=== PATIENT | female | born 1960 | race Caucasian/White ===

== ENCOUNTER 2019-12-09 12:04 | Outpatient (CLI) | payer MEDICARE, OTHER, SELFPAY ==
--- NOTE | 2019-12-09 12:05 | MM_ITS ---
WS: [id number] LEFT DIGITAL MAMMOGRAPHY WITH CAD CLINICAL INFORMATION: HX OF BREAST CA COMPARISON: TECHNIQUE: 5 views of the left breast were obtained. FINDINGS: Scattered fibroglandular densities of the left breast. No suspicious focal mass, asymmetry, calcifications, or architectural distortion. No evidence of tosin gnancy. MM/[place] [id number] IMPRESSION: BI-RADS: 1-Negative FOLLOW UP: 1 Year Follow-up Recommend return to annual diagnostic mammography.
== END 2019-12-09 12:05 | disposition home or self-care (01) ==
LOC: RADSHAW 12:04
PROVIDERS: Family Provider Family Medicine; PCP Family Medicine; Visit Provider Nurse Practitioner
DX: Z85.3 Personal history of malignant neoplasm of breast (principal); Z90.11 Acquired absence of right breast and nipple
CPT/HCPCS: 77065

== ENCOUNTER 2020-09-02 08:11 | Outpatient (CLI) | payer MEDICARE, OTHER, SELFPAY ==
--- NOTE | 2020-09-02 | CT_ITS ---
WS: [id number] CT HEAD WITH AND WITHOUT CONTRAST HISTORY: HX OF TIA AND CEREBRAL INFARCT TECHNIQUE: Noncontrast 2.5 mm axial images obtained from the vertex to the skull base. Additional christa ging performed at 2.5 mm axial images status post IV contrast. Bone and soft tissue windows are revie wed. All CT scans at [facility] use at least one of these dose optimization techniques: a utomated exposure control; mA and/or kV adjustment per patient size (includes targeted exams where do se is matched to clinical indication); or iterative reconstruction. CONTRAST: Omnipaque 300; 95 mL IV. DLP: 1984.08 mGycm COMPARISON: 08/29/2017 No acute intracranial hemorrhage, edema or midline shift. Large known RIGHT MCA territory infarct is again identified. There is significant volume loss with mi ld ex vacuole dilatation of the RIGHT lateral ventricle. There are small lacunar infarcts in the LEFT basal ganglia. No new infarct or interval change. No enhancing masses. No vascular malformations. Mildly beaded appearance of the middle cerebral arter ies raises the possibility of fibromuscular dysplasia. Hypoplastic LEFT A1 segment. Dural venous sinuses are normally enhancing. Visualized [place] of [place] is unremarkable. Paranasal sinuses as visualized: Clear. Mastoid air cells: Clear. Calvarium and scalp: Intact. CT/CT head wo/w con [id number] IMPRESSION: 1. No acute intracranial hemorrhage or edema. 2. Large stable RIGHT MCA territory infarct with encephalomalacia. 3. Small lacunar infarcts in the LEFT basal ganglia are stable. 4. Hypoplastic LEFT A1 segment. 5. Mildly beaded appearance of the middle cerebral arteries suggests the possi bility of fibromuscular dysplasia.
[2020-09-02] MEDS: iohexol 300 mg/mL 100 mL Btl IV (09:10)
== END 2020-09-02 08:12 | disposition home or self-care (01) ==
LOC: RADWPI 08:17
PROVIDERS: Family Provider Family Medicine; PCP Family Medicine; Visit Provider Nurse Practitioner
DX: R29.6 Repeated falls (principal); Z86.73 Personal history of transient ischemic attack (TIA), and cerebral infarction without residual deficits; G93.89 Other specified disorders of brain; I63.81 Other cerebral infarction due to occlusion or stenosis of small artery
CPT/HCPCS: 70470; Q9967

== ENCOUNTER 2020-11-10 11:06 | Outpatient (CLI) | payer MEDICARE, OTHER, SELFPAY ==
--- NOTE | 2020-11-10 11:11 | XR_ITS ---
WS: [id number] Abdomen, Flat and upright 11/10/2020 Clinical Data: LEFT UPPER QUADRANT PAIN Comparison: None. Findings: No free air is seen beneath the diaphragms. No abnormal intra-abdominal masses or calcifica tions are seen. No obstruction is seen. There are numerous clips throughout the left side of the abdo men and 2 on the right side of the abdomen. There is a large amount of fecal material throughout the colon. Degenerative change of the lumbar vertebral bodies L3-L5 with degenerative disc disease and a slight levoscoliosis is seen. XR/XR abdomen min 2V [id number] Impression: Large amount of fecal material throughout the colon.
== END 2020-11-10 11:07 | disposition home or self-care (01) ==
LOC: RADWPI 11:10
PROVIDERS: PCP Family Medicine; Visit Provider Nurse Practitioner Family
DX: R10.12 Left upper quadrant pain (principal)
CPT/HCPCS: 74019

== ENCOUNTER 2020-11-17 10:05 | Inpatient (IN) | payer MEDICARE, OTHER, SELFPAY ==
[2020-11-17] VITALS (12 sets, daily range): BP systolic 103–172; BP diastolic 59–107; PULSE 70–93; RESP 15–19; TEMP 36.6–36.9; O2SAT 92–97; BMI 38.1
--- NOTE | 2020-11-17 | CT_ITS ---
WS: [id number] CT HEAD NONCONTRAST HISTORY: WEAKNESS TECHNIQUE: Contiguous axial imaging performed through the brain in 2.5 mm imaging. Bone and soft tiss ue windows. Sagittal and coronal reformats reviewed. All CT scans at [facility] use at ast one of these dose optimization techniques: automated exposure control; mA and/or kV adjustment pe r patient size (includes targeted exams where dose is matched to clinical indication); or iterative r econstruction. DLP: 837.50 mGy-cm. COMPARISON: 09/02/2020 Large prior RIGHT MCA territory infarct. Large area of encephalomalacia and volume loss. No area of h emorrhage. No midline shift. Prior lacunar infarct in the subcortical white matter LEFT frontal lobe. No midline shift. Ventricles: Mild ex vacuole dilatation of the RIGHT lateral ventricle due to the large MCA territory infarct. Paranasal sinuses: As visualized are clear. Mastoid air cells: Well pneumatized. Calvarium and scalp: Skull is intact with no soft tissue edema or swelling. CT/CT head wo con* [id number] IMPRESSION: 1. No acute intracranial infarct or hemorrhage. 2. Large RIGHT MCA territory infarct. Notified Jamin Cnocepcion DO at 11/17/2020 10:21 AM.
--- NOTE | 2020-11-17 10:24 | ECG_ITS ---
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 Measurements Intervals Royal Rate: 93 P: 51 FL: 156 QRS: 13 QRSD: 108 T: 23 QT: 367 QTc: 458 Interpretive Statements SINUS RHYTHM Compared to ECG 08/29/2017 13:33:00 No significant changes Electronically Signed On 11-17-2020 21:26:02 [employer]ACH by Richard Segura M.D. [email or web address] hospitalGeneric [facility].[employer]/store/NU/[id number] f
--- NOTE | 2020-11-17 10:24 | CT_ITS ---
WS: [id number] CT ANGIOGRAM CEREBRAL AND CAROTID ARTERIES HISTORY: stroke-like symptoms TECHNIQUE: CT angiogram is performed of the carotid and cerebral arteries. During arterial injection imaging is obtained from the skull vertex to the aortic arch in 1.25 mm imaging. Coronal and sagittal reformats are submitted. Additional multi planar reformats of the carotid and cerebral arteries are submitted, MIP imaging also reviewed. NASCET criteria utilized. All CT scans at [facility] use at least one of these dose optimization techniques: automated exposure control; mA and/or kV ad justment per patient size (includes targeted exams where dose is matched to clinical indication); or iterative reconstruction. CONTRAST: Omnipaque 350; 95 mL IV. DLP: 2137.82 mGy.cm COMPARISON: Noncontrast head CT 11/17/2020. Carotid Angiogram: Right carotid: Common carotid artery: Arises normally from the innominate artery. No significant plaque or stenosis. Internal carotid artery: No plaque or stenosis. External carotid artery: Patent. Left carotid: Common carotid artery: Origin of the common carotid cannot be identified. There is significant artifa ct at the skull base. The common carotid artery may arise from the base of the innominate. Internal carotid artery: No plaque or stenosis. External carotid artery: Patent. Right vertebral artery: Unremarkable. Left vertebral artery: Proximal LEFT vertebral artery is obscured by artifact. Distally no abnormalit y. Subclavian arteries: LEFT subclavian is poorly visualized. Upper thorax: Normal. Thyroid gland: Normal. Osseous structures: Unremarkable. CEREBRAL ANGIOGRAM: Intracranial vertebral arteries: Normal with no significant atherosclerosis. Basilar artery: No significant stenosis or occlusion. No aneurysm. Intracranial Internal carotid arteries: Demonstrates no significant stenosis or plaque. Middle cerebral arteries: Normal. Anterior cerebral arteries and ACOM: Hypoplastic LEFT A1 segment but it is patent. Posterior cerebral arteries and PCOM's: Normal. Dural venous sinuses are normally enhancing. Mastoid air cells: Normal. Paranasal sinuses: Normal. Calvarium: Normal. CT/CT angio headneck* [id number] IMPRESSION: 1. No significant carotid artery stenosis. 2. Proximal LEFT vertebral and origin of the LEFT common carotid artery and LE FT subclavian arteries are obscured by motion and artifact. 3. No cerebral aneurysms or occlusions.
--- NOTE | 2020-11-17 10:27 | W.ED.NEUROSD ---
HPI - Neuro Symptoms/Deficit General: Chief Complaint: Neuro Symptoms/Deficit Stated Complaint: POSSIBLE STROKE Time Seen by Provider: 11/17/20 10:06 History of Present Illness: HPI Narrative: 60-year-old female with a history of stroke on warfarin presents with abrupt onset of dizziness and strokelike symptoms. The patient reports she is in her usual state of health when she woke this morning and then after stopping for breakfast she became dizzy and began to have some other concerning symptoms for stroke with right sided deficits and the patient was brought into the emergency department for evaluation and code stroke was called after checking her blood sugar and it was found to be normal. Dr. Bennett arrived emergently to assist and evaluate. Onset (ago): hour(s) Time: 10:28 (0815) History of same: Yes Severity: mild Quality: weak and numb Exacerbating factors: none Context: sudden onset On Anticoagulants: Yes Associated symptoms: Reports no associated symptoms Review of Systems General: Reports: 10 or more systems reviewed and unremarkable except in HPI and below PFSH ED PFSH: Social History (Updated 05/20/20 @ 17:24 by Madelaine Patel LPN) Smoking and tobacco status: never smoked Alcohol intake: never Physical Exam Const: COMMON NORMALS: no acute distress, patient oriented x3, no limitations and alert EXAM LIMITATIONS: no altered mental status, no language barrier and no physical limitations GENERAL APPEARANCE: cooperative and comfortable; not in distress HENMT: COMMON NORMALS: normocephalic HEAD & SCALP: normal to inspection and normocephalic Eye: COMMON NORMALS: Equal, round and reactive pupils present PUPIL: Yes Equal, round and reactive pupils present Resp: COMMON NORMALS: normal respiratory effort, No retractions and No use of accessory muscles Cardio: COMMON NORMALS: regular rate and regular rhythm RATE: regular rate RHYTHM: regular rhythm GI: COMMON NORMALS: Normal to inspection, nondistended, normoactive bowel sounds present Extremity: COMMON NORMALS: normal to inspection GENERAL: Yes normal exam except as noted Neuro: COMMON NORMALS: patient oriented x3 and moves all extremities; negative for gait normal SENSORIUM/ORIENTATION: Yes alert SPEECH: abnormal speech GAIT: Yes Unable to assess gait SENSORY EXAM: Yes Trunk sensory exam abnormal MONOFILAMENT EXAM PERFORMED: No Skin: COMMON NORMALS: no rashes or lesions noted GENERAL SKIN EXAM: no rashes or lesions noted Course ED course: 60-year-old female history of stroke on chronic regulation with strokelike symptoms. Her NIH is [address] shows remote right sided stroke but no acute findings. Dr. Bennett has assessed the patient and recommended CTA. Currently being performed. Other labs and workup are ordered. INR still pending. Stroke order set placed. INR subtherapeutic. Deficiits have resolved. NIH now zero. Discussed with neurology about admission on heparin drip and further work up. Talked to Hospitalist (Dr. Mcconnell) about admission. Vital Signs: Vital signs: Vital Signs Temperature 98.0 F 11/17/20 10:06 Pulse Rate 84 11/17/20 12:10 Respiratory Rate 16 11/17/20 12:10 Blood Pressure 172/107 11/17/20 12:10 Pulse Oximetry 96 11/17/20 12:10 MDM - Neuro Symptoms/Deficit Lab Data: Labs: Lab Results 11/17/20 11/17/20 11/17/20 Range/Units 10:20 10:20 10:20 WBC 4.3 (4.0-10.0) 10^3/ uL RBC 4.62 (4.1-5.3) 10^6/u L Hgb 13.1 (11.5-15.3) g/dL Hct 42.0 (37.0-47.0) % MCV 90.9 (81-99) fL MCH 28.4 (28.0-34.0) pg MCHC 31.2 (30.0-36.0) g/dL RDW 12.5 (12.1-15.1) % Plt Count 189 (130-400) 10^3/c mm MPV 11.9 H (7.4-10.4) fL Neut % (Auto) 67.8 % Lymph % (Auto) 22.4 % [place] % (Auto) 8.5 % Eos % (Auto) 0.9 % Baso % (Auto) 0.2 % Neut # (Auto) 2.88 (1.8-7.7) 10^3/u L Lymph # (Auto) 1.0 (0.8-4.8) 10^3/u L [place] # (Auto) 0.4 (0.2-0.9) 10^3/u L Eos # (Auto) 0.0 (0.0-0.8) 10^3/u L Baso # (Auto) 0.0 (0.0-0.1) 10^3/u L Nucleated RBC % (a uto) 0 % Nucleated RBCs # 0.0 /100WBC PT 15.60 H (12.1-14.9) SECO NDS INR 1.20 (0.8-1.2) APTT 43.9 H (23.9-36.7) SECO NDS Sodium 143 (136-145) mmol/L Potassium 3.8 (3.5-5.1) mmol/L Chloride 105 (98-107) mmol/L Carbon Dioxide 31 H (22-29) mmol/L Anion Gap 10.8 (5-19) BUN 12 (6-20) mg/dL Creatinine 0.6 (0.5-0.9) mg/dL GFR Calculation 102.7 (90-130) mL/min Glucose 123 H (65-115) mg/dL Calculated Osmolal ity 297 H (285-295) mOsm/k g Calcium 9.1 (8.5-10.5) mg/dL Total Bilirubin 0.4 (0.15-1.2) mg/dL AST 15 (0-32) U/L ALT 10 (0-33) U/L Alkaline Phosphata se 113 H (35-105) IU/L Total Protein 7.0 (6.6-8.7) g/dL Albumin 4.3 (3.5-5.2) g/dL Globulin 2.7 (1.3-4.6) g/dL Discharge Plan Discharge Patient Disposition: Admitted As Inpatient Clinical Impression: Transient cerebral ischemia Qualifiers: Transient cerebral ischemia type: other Qualified Code(s): G45.8 - Other transient cerebral ischemic attacks and related syndromes Condition: Stable Coding Level of Care Code ED Diesel Service Journeyman for syeda Fwd Exam Comprehensive
[2020-11-17] MEDS: sodium chloride 0.9% 1,000 ML 999 ML IV (10:29)
[2020-11-17 10:40] LABS: Basophils % 0.2 %; Eosinophils % 0.9 %; Hemoglobin 13.1 g/dL (11.5-15.3); Lymphocytes % 22.4 %; Mean Corpuscular HGB Conc 31.2 g/dL (30.0-36.0); Mean Corpuscular Hemoglobin 28.4 pg (28.0-34.0); Mean Corpuscular Volume 90.9 fL (81-99); Mean Platelet Volume 11.9 fL (7.4-10.4); Monocytes # 0.4 10^3/uL (0.2-0.9); Monocytes % 8.5 %; Neutrophils # 2.88 10^3/uL (1.8-7.7); Neutrophils % 67.8 %; Nucleated Red Blood Cells % 0 %; Platelet Count 189 10^3/cmm (130-400); Red Blood Count 4.62 10^6/uL (4.1-5.3); Red Cell Distribution Width 12.5 % (12.1-15.1); White Blood Count 4.3 10^3/uL (4.0-10.0)
[2020-11-17] MEDS: iohexol 350 mg/mL 100 mL Btl IV (10:41)
--- NOTE | 2020-11-17 10:48 | PC.NURSE ---
pt right side no longer showing weakness. pt does not appear to have a facial droop. pt does not have any slow or garbled speech at this time. ER physician notified.
[2020-11-17 10:52] LABS: Alanine Aminotransferase 10 U/L (0-33); Albumin Level 4.3 g/dL (3.5-5.2); Alkaline Phosphatase 113 IU/L (35-105); Anion Gap 10.8 (5-19); Aspartate Amino Transferase 15 U/L (0-32); Blood Urea Nitrogen 12 mg/dL (6-20); Calcium 9.1 mg/dL (8.5-10.5); Carbon Dioxide 31 mmol/L (22-29); Chloride 105 mmol/L (98-107); Globulin 2.7 g/dL (1.3-4.6); Glomerular Filtration Rate 102.7 mL/min (90-130); Glucose 123 mg/dL (65-115); Osmolality Calculated 297 mOsm/kg (285-295); Partial Thromboplastin Time 43.9 SECONDS (23.9-36.7); Potassium 3.8 mmol/L (3.5-5.1); Sodium 143 mmol/L (136-145); Total Bilirubin 0.4 mg/dL (0.15-1.2)
--- NOTE | 2020-11-17 11:12 | P.PNCC_ITS ---
Stroke Alert Activation ED Arrival Date: 11/17/20 ED Arrival Time: 10:06 ED Physican at Bedside: 10:15 Last Known Normal/at Baseline: 1-2 hours ago Other Last Known Well Infomation: I was called stat for stroke alert at 1007 and called the emergency department. I learned that the patient presented with severe left hemiparesis and that she had been taken straight to CT. I came directly to CAT scan and reviewed her CAT scan on the monitor. That study showed an old right middle cerebral artery anterior branch ischemic stroke, atrophic and old. There were no acute lesions in the left hemisphere. I proceeded to talk with the patient and I reviewed the story with her and with EMS. She was at [place] this morning at 08 100 and drove from [place] to her workplace which is a block away and could not remember making the drive. When she got to work she could not get out of the car. Jake Henriquez was called and she arrived at [facility] at 1006. Kevin activated the stroke team and so I was at the bedside before she finished her CAT scan. She had a normal blood pressure of 117/72 and an Accu-Chek of 122. I asked the nurses to prepare TPA. The patient could not stand up. She was profoundly weak on the right and moderately dysarthric but she was not aphasic. She was fully oriented. She told me that she has been on Coumadin since her stroke several years ago and that her INR was 1.31-week ago. She talked with her physician who adjusted her Coumadin upward in response to her subtherapeutic pro time. She had not recheck her pro time since then. I notified the lab, who was already on standby, that pro time was a priority. The nurses were prepared to give TPA. As soon as she received an IV and labs drawn we returned to the CAT scan suite for CTA. I reviewed that study and it is my impression that there is no sign of posterior circulation stenosis with full vertebral and basilar arteries throughout their course. The carotid arteries look unremarkable. Dr. East's report was subsequently reviewed. Her pro time returned at 1.2. At this time, now just as the labs returned, the patient's symptoms have resolved on IV fluids. She was able to ambulate normally, her speech is normal and she has no focal motor deficit. Her pro time is subtherapeutic and she is in atrial fibrillation. I would suggest admitting her, starting her on heparin and consider changing to Xarelto which can be obtained at a reasonable sanchez through the [facility] B program. There is no role for TPA at this point since her symptoms and signs have fully resolved. Stroke Alert Activated by: [facility] Stroke Alert Activation Time: 10:06 Stroke MD @ Bedside Time: 10:07 NIH Stroke Scale Time: 10:10 NIH stroke score NIHSS: Level Of Consciousness - 1a: 1 Level Of Consciousness Questions - 1b: Both Correct Level Of Consciousness Commands - 1c: Both Correct Best Gaze - 2: Normal Visual Bust[place]ante - 3: No Visual Loss Facial Palsy - 4: Minor Paralysis Motor Arm Right - 5: Drift Motor Arm Left - 5: No Drift Motor Leg Right - 6: Drift Motor Leg Left - 6: No Drift Limb Ataxia - 7: Present In Two Limbs Sensory - 8: Normal (Normal on the right. Residual reduced sensation left side from previous stroke) Best Language - 9: No Aphasia Dysarthia - 10: Mild/Moderate Dysarthia Extinction And Inattention - 11: 0 Score: Total Score: 7 Stroke Alert Data/Treatment Time to CT of Head: 10:06 CT Results Time: 10:10 CT Impression: Old right middle cerebral artery stroke Stroke Risk Factors: atrial fibrillation (Pro time subtherapeutic on warfarin) tPA Contraindication: tPA Contraindication: Treatment not indcated Patient & Family Educated on: Cause of Stroke and Treament Plan Standardized Stroke Orders Used: Yes Other Information: Recommend hospitalization because this was a severe and prolonged TIA and her pro time is subtherapeutic. I presume that atrial fibrillation was a cause of this event. Critical Care Time Critical Care Time: 30 - 74 mins A&P Assessment and plan (1) Left acute arterial ischemic stroke, MCA (middle cerebral artery): Prolonged right hemiparesis and dysarthria, presumably subcortical or brainstem threatened stroke. No cortical involvement. Her symptoms resolved with normal saline. Her CT angiogram does not show a large vessel thrombosis or embolus. Her symptoms have resolved and so even though her pro time is only 1.2 she is not currently a candidate for TPA. Recommend watching her very carefully with frequent neuro checks. If her symptoms return she would be a TPA candidate, since she is neurologically fully normal now. Status: Acute (2) Atrial fibrillation: Consider change to Xarelto Status: Acute Coding Level of Care Code Acute Gravel Machine Operator for g Fwd Diagnoses Left acute arterial ischemic stroke, MCA (middle cerebral artery) I63.512 Atrial fibrillation I48.91
--- NOTE | 2020-11-17 11:12 | PC.NURSE ---
spoke to neurologist and was given orders to ambulate pt. pt tolerated activity well.
[2020-11-17 12:14] LABS: Add Urine Microscopic? NO
[2020-11-17 12:23] LABS: Bilirubin Urine Neg (Negative); Blood Urine Neg (Negative); Glucose Urine UA Norm (Normal); Ketones Urine Negative (Negative); Leukocyte Esterase Urine Negative (Negative); Nitrate Urine Negative (Negative); Protein Urine Neg (Negative); Specific Gravity, Urine 1.005 (1.005-1.030); Urine Appearance Clear (CLEAR); Urine Color Yellow (Yellow); Urobilinogen Urine 1 mg/dL (Negative); pH Urine 7 (5-7)
--- NOTE | 2020-11-17 12:27 | XRR_ITS ---
PROCEDURE INFORMATION: Exam: XR Chest, 1 View Exam date and time: 11/17/2020 1:35 PM Age: 60 years old Clinical indication: Other: Stroke like symptoms; Prior surgery; Surgery type: RT breast; Patient HX: No chest complaints TECHNIQUE: Imaging protocol: XR of the chest Views: 1 view. COMPARISON: CR Chest 1 [place] [id number] 08/29/2017 1:53 PM FINDINGS: Lungs: Unremarkable. No consolidation. Pleural space: Unremarkable. No pleural effusion. No pneumothorax. Heart/Mediastinum: Unremarkable. No cardiomegaly. Bones/joints: Unremarkable. XR/XR chest 1V portable [id number] IMPRESSION: No acute findings.
[2020-11-17 12:29] LABS: Amphetamines Screen Urine Negative (Negative); Barbiturates Screen Urine Negative (Negative); Benzodiazepines Screen Urine Positive (Negative); Cocaine Screen Urine Negative (Negative); Opiate Screen Urine Positive (Negative); PCP Screen Urine Negative (Negative); THC Screen Urine Negative (Negative)
[2020-11-17] MEDS: heparin 5,000 unit/mL INJ 1 mL IV (12:53)
[2020-11-17] MEDS: heparin drip 25,000 UNIT/500 ML PREMIX 52.7 UNIT IV (12:54)
[2020-11-17 13:20] LABS: Glucose Point of Care 122 mg/dL (70-110)
--- NOTE | 2020-11-17 14:19 | PM.HP ---
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 She also reports being incontinent with urine during the episode. No loss of consciousness or seizures. She reports also some dizziness which has resolved. According to the ER reports her NIH score was 7. She was being considered for TPA administration. She was rushed to CT. However while she was on the CT her symptoms started resolving. Second evaluation after CT revealed NIH of 0. Currently the patient is doing well. She denies any headache, problems with vision, problems with speech. No new weakness or sensory loss. No chest pain, palpitations, shortness of breath, nausea or vomiting. Residual symptoms from her major stroke which happened several years ago is left upper and lower extremity mild weakness and significant numbness. She has a little bit limp on the left side. The patient is on warfarin. However her INR was 1.2. She states that 2 weeks ago it was 3.1 and the dose of warfarin was decreased. A week ago her INR was 1.3 and a new adjustment was done to her warfarin. She states that she is compliant with prescriptions. She has chronic pain syndrome and is on pain medications. She is prone to constipation. Denies any abdominal pain, rectal blood. Review of Systems General: Reports: 10 or more systems reviewed and unremarkable except in HPI and below Medications/Allergies Home Medications Medication Instructions Recorded Confirmed Last Taken Type duloxetine 20 mg capsule,delayed 20 mg PO DAILY@21 cap 05/20/20 11/17/20 11/16/20 History release ropinirole 0.25 mg tablet 0.25 mg PO DAILY@21 05/20/20 11/17/20 11/16/20 History simvastatin 10 mg tablet 10 mg PO DAILY@21 05/20/20 11/17/20 11/16/20 History warfarin 1 mg tablet See Rx Instructions .ROUTE 05/20/20 11/17/20 11/16/20 History .COMPLEX tab alprazolam 0.5 mg PO Q6H PRN 11/17/20 11/17/20 11/17/20 History pseudoephedrine HCl [Sudogest] 30 mg PO Q6H PRN 11/17/20 11/17/20 11/17/20 History Allergies Allergy/AdvReac Type Severity Reaction Status Date / Time No Known Allergies Allergy Verified 06/22/20 15:13 PFSH Acute PFSH: Social History (Updated 05/20/20 @ 17:24 by Madelaine Patel LPN) Smoking and tobacco status: never smoked Alcohol intake: never Vitals/I&O/Wt Last Vital Signs Temp 98.0 F 11/17/20 10:06 Pulse 84 11/17/20 12:10 Resp 16 11/17/20 12:10 BP 172/107 11/17/20 12:10 Pulse Ox 96 11/17/20 12:10 Weight last 48 hrs Weight 97.613 kg Physical Exam Narrative: EXAM NARRATIVE: The patient is awake alert and oriented x4. No acute distress. Mood and affect are appropriate. Responses are adequate. Eyes Niels, extraocular muscles are intact Normal speech Cranial nerves II through XII are grossly intact Neck supple. No JVD Moist mucous membranes Lungs are clear bilaterally. Heart S1, S2, regular rhythm and rate no murmurs Abdomen is soft, nontender, bowel sounds are present Extremities no edema cyanosis or calf tenderness bilaterally Neuro examination 3-4 out of 5 weakness in the left upper and lower extremities. Mild numbness is present which is chronic according to the patient. Cerebellar tests seem to be intact. Data : 11/17/20 10:20 11/17/20 10:20 Other Labs: Laboratory Results WBC 4.3 10^3/uL (4.0-10.0) 11/17/20 10:20 RBC 4.62 10^6/uL (4.1-5.3) 11/17/20 10:20 Hgb 13.1 g/dL (11.5-15.3) 11/17/20 10:20 Hct 42.0 % (37.0-47.0) 11/17/20 10:20 MCV 90.9 fL (81-99) 11/17/20 10:20 MCH 28.4 pg (28.0-34.0) 11/17/20 10:20 MCHC 31.2 g/dL (30.0-36.0) 11/17/20 10:20 RDW 12.5 % (12.1-15.1) 11/17/20 10:20 Plt Count 189 10^3/cmm (130-400) 11/17/20 10:20 MPV 11.9 fL (7.4-10.4) H 11/17/20 10:20 Neut % (Auto) 67.8 % 11/17/20 10:20 Lymph % (Auto) 22.4 % 11/17/20 10:20 [place] % (Auto) 8.5 % 11/17/20 10:20 Eos % (Auto) 0.9 % 11/17/20 10:20 Baso % (Auto) 0.2 % 11/17/20 10:20 Neut # (Auto) 2.88 10^3/uL (1.8-7.7) 11/17/20 10:20 Lymph # (Auto) 1.0 10^3/uL (0.8-4.8) 11/17/20 10:20 [place] # (Auto) 0.4 10^3/uL (0.2-0.9) 11/17/20 10:20 Eos # (Auto) 0.0 10^3/uL (0.0-0.8) 11/17/20 10:20 Baso # (Auto) 0.0 10^3/uL (0.0-0.1) 11/17/20 10:20 Nucleated RBC % (auto) 0 % 11/17/20 10:20 Nucleated RBCs # 0.0 /100WBC 11/17/20 10:20 PT 15.60 SECONDS (12.1-14.9) H 11/17/20 10:20 INR 1.20 (0.8-1.2) 11/17/20 10:20 APTT 43.9 SECONDS (23.9-36.7) H 11/17/20 10:20 Sodium 143 mmol/L (136-145) 11/17/20 10:20 Potassium 3.8 mmol/L (3.5-5.1) 11/17/20 10:20 Chloride 105 mmol/L (98-107) 11/17/20 10:20 Carbon Dioxide 31 mmol/L (22-29) H 11/17/20 10:20 Anion Gap 10.8 (5-19) 11/17/20 10:20 BUN 12 mg/dL (6-20) 11/17/20 10:20 Creatinine 0.6 mg/dL (0.5-0.9) 11/17/20 10:20 GFR Calculation 102.7 mL/min (90-130) 11/17/20 10:20 Glucose 123 mg/dL (65-115) H 11/17/20 10:20 POC Glucose 122 mg/dL (70-110) H 11/17/20 10:19 Calculated Osmolality 297 mOsm/kg (285-295) H 11/17/20 10:20 Calcium 9.1 mg/dL (8.5-10.5) 11/17/20 10:20 Total Bilirubin 0.4 mg/dL (0.15-1.2) 11/17/20 10:20 AST 15 U/L (0-32) 11/17/20 10:20 ALT 10 U/L (0-33) 11/17/20 10:20 Alkaline Phosphatase 113 IU/L (35-105) H 11/17/20 10:20 Total Protein 7.0 g/dL (6.6-8.7) 11/17/20 10:20 Albumin 4.3 g/dL (3.5-5.2) 11/17/20 10:20 Globulin 2.7 g/dL (1.3-4.6) 11/17/20 10:20 Urine Color Yellow (Yellow) 11/17/20 11:56 Urine Appearance Clear (CLEAR) 11/17/20 11:56 Urine pH 7 (5-7) 11/17/20 11:56 Ur Specific [place] 1.005 (1.005-1.030) 11/17/20 11:56 Urine Protein Neg (Negative) 11/17/20 11:56 Urine Glucose (UA) Norm (Normal) 11/17/20 11:56 Urine Ketones Negative (Negative) 11/17/20 11:56 Urine Blood Neg (Negative) 11/17/20 11:56 Urine Nitrate Negative (Negative) 11/17/20 11:56 Urine Bilirubin Neg (Negative) 11/17/20 11:56 Urine Urobilinogen 1 mg/dL (Negative) H 11/17/20 11:56 Ur Leukocyte Esterase Negative (Negative) 11/17/20 11:56 Urine Opiates Screen Positive ng/mL (Negative) H 11/17/20 11:56 Ur Barbiturates Screen Negative ng/mL (Negative) 11/17/20 11:56 Ur Phencyclidine Scrn Negative ng/mL (Negative) 11/17/20 11:56 Ur Amphetamines Screen Negative ng/mL (Negative) 11/17/20 11:56 U Benzodiazepines Scrn Positive ng/mL (Negative) H 11/17/20 11:56 Urine Cocaine Screen Negative ng/mL (Negative) 11/17/20 11:56 U Marijuana (THC) Screen Negative ng/mL (Negative) 11/17/20 11:[address] 11/17/20 00:00 IMPRESSION: 1. No acute intracranial infarct or hemorrhage. 2. Large RIGHT MCA territory infarct. Notified Jamin Concepcion DO at 11/17/2020 10:21 AM. Head/Neck CTA 11/17/20 10:24 IMPRESSION: 1. No significant carotid artery stenosis. 2. Proximal LEFT vertebral and origin of the LEFT common carotid artery and LEFT subclavian arteries are obscured by motion and artifact. 3. No cerebral aneurysms or occlusions. Chest X-Ray 11/17/20 12:27 IMPRESSION: No acute findings. A&P Additional A&P Information 60-year-old female with past medical history of antiphospholipid syndrome, thrombophilia, warfarin therapy, breast cancer stage III currently in remission, dyslipidemia, chronic pain syndrome who presented with acute onset facial droop, slurred speech, right-sided weakness. Currently her symptoms have resolved. CVA versus TIA. Discussed with Dr. Bennett who evaluated the patient and her findings. Dr. Bennett feels that the patient had a lacunar infarct. Currently she is on heparin drip. She recommends to continue heparin drip and resume warfarin to achieve therapeutic range. She recommends starting on baby aspirin a day and continue with statin medication. She feels that MRI and MRA can be postponed to outpatient stage since positive or negative findings would not alter the treatment at this time. Questionable findings on CTA neck. Dr. Bennett reviewed the pictures. She does not feel that there are problems with the circulation in the left vertebral subclavian or carotid arteries. However she recommends MRA in outpatient settings. The plan of care was discussed with the patient and her . They verbalized understanding and agreement. Attestations Medical Necessity Statement*: I expect that the patient will spend 1 or 2 midnights in the hospital. Coding Level of Care Code Acute Beauty Culturist for Tracey Farrra
[2020-11-17] MEDS: labetalol 5 mg/mL SDV 20mL 10 MG IVP (15:23)
[2020-11-17 20:53] LABS: Partial Thromboplastin Time > 250.0 SECONDS (23.9-36.7)
[2020-11-17] MEDS: duloxetine 20 mg Capsule PO (21:12)
[2020-11-17] MEDS: ropinirole 0.25 mg Tablet PO (21:12)
[2020-11-17] MEDS: atorvastatin 40 mg Tablet 20 MG PO (21:13)
[2020-11-17] MEDS: acetaminophen 325 mg Tablet 650 MG PO (22:09)
[2020-11-18] VITALS (9 sets, daily range): BP systolic 115–130; BP diastolic 68–86; PULSE 71–98; RESP 16–18; TEMP 36.6–37.3; O2SAT 92–93
[2020-11-18 01:18] LABS: Partial Thromboplastin Time 48.2 SECONDS (23.9-36.7)
[2020-11-18 04:27] LABS: INR 1.21 (0.8-1.2)
[2020-11-18 04:39] LABS: Chol HDL Ratio 3.43 mg/dL (0.0-4.40); Cholesterol 137 mg/dL (0-200); HDL Cholesterol 40 mg/dL (60-100); LDL Cholesterol Calculated 68 mg/dL (50-129); Triglycerides 143 mg/dL (0-150)
--- NOTE | 2020-11-18 06:00 | USCV_ITS ---
Nai Mancilla Age: 60 Gender: F : 1960 Exam Date: 11/18/2020 06:11 Ordering Phys: Joseph Landon MD Technologist: Rolanda Wilson [place] [facility] [place]: CVA BP: 126 / 73 HR: 89 Rhythm: Sinus Technical Quality: Adequate MEASUREMENTS (Male / Female) Normal Values 2D ECHO LV Diastolic Diameter PLAX 3.6 cm 4.2 - 5.9 / 3.9 - 5.3 cm LV Systolic Diameter PLAX 2.6 cm IVS Diastolic Thickness 1.3 cm 0.6 - 1.0 / 0.6 - 0.9 cm IVS Systolic Thickness 1.7 cm LVPW Diastolic Thickness 1.2 cm 0.6 - 1.0 / 0.6 - 0.9 cm LVPW Systolic Thickness 1.3 cm LVOT Diameter 2.0 cm LV Ejection Fraction 2D Teich 54.2 % LV Ejection Fraction MOD 2C 59.0 % LV Ejection Fraction 2C AL 58.8 % LA Diameter 2.9 cm LA Width 3.0 cm LA Height 4.3 cm RA Width 2.6 cm RA Height 3.4 cm Aorta at Sinotubular Diameter 2.9 cm M-MODE LV Diastolic Diameter MM 3.9 cm 4.2 - 5.9 / 3.9 - 5.3 cm LV Systolic Diameter MM 2.7 cm LV Ejection Fraction MM Teich 58.9 % IVS Diastolic Thickness MM 0.9 cm 0.6 - 1.0 / 0.6 - 0.9 cm IVS Systolic Thickness MM 1.2 cm LVPW Diastolic Thickness MM 1.2 cm 0.6 - 1.0 / 0.6 - 0.9 cm LVPW Systolic Thickness MM 1.4 cm RV Diastolic Diameter MM 0.9 cm Aortic Annulus Diameter 3.1 cm LA Ao Ratio MM 1.0 MV E Point Septal Separation 0.6 cm DOPPLER AV Peak Velocity 118.7 cm/s LVOT Peak Velocity 66.9 cm/s AV Area Cont Eq vti 1.9 cm squared AV Area Cont Eq pk 1.8 cm squared MV Area PHT 4.2 cm squared Mitral E to A Ratio 0.7 MV E' Velocity 38.0 cm/s Mitral E to MV E' Ratio 6.4 Mitral E to LV E' Lateral Ratio 6.1 Mitral E to LV E' Septal Ratio 6.7 TR Peak Velocity 138.4 cm/s TR Peak Gradient 7.7 mmHg TR Mean Velocity 83.3 cm/s TR Mean Gradient 3.3 mmHg TR Velocity Time Integral 28.1 cm TV Peak E Velocity 75.0 cm/s Right Atrial Pressure 3.0 mmHg Pulmonary Artery Systolic Pressu 10.7 mmHg PV Peak Velocity 50.0 cm/s RV Acceleration Time 0.1 s RV Ejection Time 0.4 s RV AcT/ET 0.4 FINDINGS Left Ventricle Normal left ventricular size and systolic function with no regional wall motion abnormalities. LVEF is 60 to 65%. Normal left ventricular wall thickness. Grade 1 diastolic dysfunction is present. Right Ventricle Not well-visualized. Grossly normal in size. Right Atrium The right atrium is normal in size. Left Atrium The left atrium is normal in size. Mitral Valve Grossly normal. No evidence of mitral stenosis or regurgitation is noted. Aortic Valve Grossly normal. No evidence of aortic stenosis is noted. Tricuspid Valve Structurally normal tricuspid valve without significant stenosis or regurgitation. RVSP is 10 to 15 mmHg. Pulmonic Valve Not well-visualized. Pericardium Normal pericardium without effusion. Aorta Normal ascending aorta dimension. CONCLUSIONS This is a limited quality echocardiogram. Contrast agent is used to visualize cardiac structures. LV systolic function is normal with EF of 60 to 65%. Grade 1 diastolic dysfunction is present. No gross abnormality of valvular structures is noted. No comparison studies are available. Vijay Dupont MD (Electronically Signed) Final Date: 18 November 2020 13:18 S
[2020-11-18 08:34] LABS: Partial Thromboplastin Time 140.1 SECONDS (23.9-36.7)
[2020-11-18] MEDS: acetaminophen 325 mg Tablet 650 MG PO (09:08)
[2020-11-18] MEDS: aspirin 81 mg EC Tablet PO (09:08)
[2020-11-18] MEDS: perflutren protein-a microsphr 0.22 mg/mL SDV 3 mL IV (09:10)
--- NOTE | 2020-11-18 11:08 | PC.CHAP ---
Pastoral Care Encounter/Spiritual Assessment Type of Contact [] Declined theatre director visit [] Patient/Family/Request visit [] Outpatient visit [] Follow-up visit [] Physician referral [] Code/Alert [x] Routine visit [] Staff referral [] Actively dying [] Patient sleeping [] Family support [] [] Out of room [] Palliative care [] [x] Receiving care in room [] Pre-surgical visit [] Trauma [] Long length of stay [] ICU visit [] Other: Relational/Emotional Strength [x] Patient feels connected with others/family/visitors/staff [] Distress [] Loneliness/isolation [] Abandonment Spirituality of Patient [x] Person of Viry [] Attends Protestant of their Viry [x] Believes in Prayer [] Reads Bible or Jehovah'S Witness materials [] There are Spiritual issues to be addressed Shuffle Board Operator Interventions [x] Prayer [x] Active listening [x] Non-anxious presence [x] Spiritual/emotional support [] Crisis/trauma care [x] Spiritual counseling [] Bereavement support [] Provided bereavement packet [] Provided Bible/devotional materials [] Provided toy/stuffed animal, coloring book to patient or family member [] Provided Communion [] Anointing/Outlook [] Salvation [x] Completed spiritual assessment [] Other: Impact on Illness or Injury [] Angry [] Fearful [x] Anxious [] Often cries [] Exhaustion [] Unable to work [] Unable to attend confucianism [] Unable to walk/stand [] Unable to read [] Unable to drive [] Unable to eat/drink [] Unable to sleep [] Unable to be with family [] Patient intubated [] Other: Summary Back verdabree, may need to change meds, doesn't know when she go home Time spent with patient 10 mins
--- NOTE | 2020-11-18 11:23 | PC.NUTR ---
NUTR CONSULT: Heart Healthy education requested. Pt records indicate a possible stroke. Will cont pt at [phone] for follow up education to be mailed.
--- NOTE | 2020-11-18 12:20 | PM.PN ---
Subjective Subjective: Interval history: No fresh episode of Dizziness.She deny any new focal weakness,other then her old residual lt sided weakness. She deny any chest pain, sob, cough, fever, headache, blurred vision, abnormal sensations, gait disturbances. Has been ambulating. She has remained afebrile, other vitals and labs have been reviewed. Medications: Reviewed: Yes Vitals/I&O/Wt Last Vital Signs Temp 99.2 F 11/18/20 10:00 Pulse 94 11/18/20 10:00 Resp 16 11/18/20 10:00 BP 130/68 11/18/20 10:00 Pulse Ox 93 11/18/20 10:00 11/17/20 11/18/20 11/18/20 22:59 06:59 14:59 Intake Total 240 / 240 Balance 240 / 240 Weight last 48 hrs Weight 97.613 kg Physical Exam Narrative: EXAM NARRATIVE: The patient is awake alert and oriented x4. No acute distress. Mood and affect are appropriate. Responses are adequate. Eyes Niels, extraocular muscles are intact Normal speech Cranial nerves II through XII are grossly intact Neck supple. No JVD Moist mucous membranes Lungs are clear bilaterally. Heart S1, S2, regular rhythm and rate no murmurs Abdomen is soft, nontender, bowel sounds are present Extremities no edema cyanosis or calf tenderness bilaterally Neuro examination 3-4 out of 5 weakness in the left upper and lower extremities. Mild numbness is present which is chronic according to the patient. Cerebellar tests seem to be intact. Data : 11/17/20 10:20 11/17/20 10:20 A&P Additional A&P Information 60-year-old female with past medical history of antiphospholipid syndrome, thrombophilia, warfarin therapy, breast cancer stage III currently in remission, dyslipidemia, chronic pain syndrome who presented with acute onset facial droop, slurred speech, right-sided weakness. Currently her symptoms have resolved. CVA versus TIA. Discussed with Dr. Bennett who evaluated the patient and her findings. Dr. Bennett feels that the patient had a lacunar infarct. Currently she is on heparin drip. She recommends to continue heparin drip and resume warfarin to achieve therapeutic range. She recommends starting on baby aspirin a day and continue with statin medication. She feels that MRI and MRA can be postponed to outpatient stage since positive or negative findings would not alter the treatment at this time. Questionable findings on CTA neck. Dr. Bennett reviewed the pictures. She does not feel that there are problems with the circulation in the left vertebral subclavian or carotid arteries. However she recommends MRA in outpatient settings. The plan of care was discussed with the patient and her . They verbalized understanding and agreement. Attestations Medical Necessity Statement*: Patient needs to be in hospital for the management of subtherapeutic INR. Coding Level of Care Code Acute Voucher Examiner for Tracey Farrar
[2020-11-18] MEDS: ALPRAZolam 0.5 mg Tablet PO ×2 (13:21→21:44)
[2020-11-18] MEDS: warfarin 10 mg Tablet PO (13:53)
[2020-11-18] MEDS: heparin drip 25,000 UNIT/500 ML PREMIX 52.7 UNIT IV (13:54)
[2020-11-18 15:11] LABS: Partial Thromboplastin Time > 250.0 SECONDS (23.9-36.7)
[2020-11-18] MEDS: enoxaparin 100 mg/mL Syringe SUBCUT (19:35)
[2020-11-18] MEDS: duloxetine 20 mg Capsule PO (21:14)
[2020-11-18] MEDS: ropinirole 0.25 mg Tablet PO (21:14)
[2020-11-18] MEDS: atorvastatin 40 mg Tablet 20 MG PO (21:14)
[2020-11-18 22:26] LABS: Partial Thromboplastin Time 40.2 SECONDS (23.9-36.7)
[2020-11-19 00:20] VITALS: BP 118/84; PULSE 79; RESP 14; TEMP 36.7; O2SAT 93
[2020-11-19 03:41] VITALS: BP 140/86; PULSE 95; RESP 16; TEMP 36.7; O2SAT 93
[2020-11-19 04:57] LABS: Platelet Count 203 10^3/cmm (130-400)
[2020-11-19 05:18] LABS: INR 1.13 (0.8-1.2)
[2020-11-19] MEDS: enoxaparin 100 mg/mL Syringe SUBCUT (06:33)
[2020-11-19 08:00] VITALS: BP 128/80; PULSE 91; RESP 18; TEMP 36.9; O2SAT 92
[2020-11-19] MEDS: aspirin 81 mg EC Tablet PO (08:33)
--- NOTE | 2020-11-19 09:26 | PC.CHAP ---
Pastoral Care Encounter/Spiritual Assessment Type of Contact [] Declined manager image visit [] Patient/Family/Request visit [] Outpatient visit [] Follow-up visit [] Physician referral [] Code/Alert [x] Routine visit [] Staff referral [] Actively dying [] Patient sleeping [] Family support [] [] Out of room [] Palliative care [] [] Receiving care in room [] Pre-surgical visit [] Trauma [] Long length of stay [] ICU visit [] Other: Relational/Emotional Strength [x] Patient feels connected with others/family/visitors/staff [] Distress [] Loneliness/isolation [] Abandonment Spirituality of Patient [] Person of Viry [] Attends Christianity of their Viry [x] xBelieves in Prayer [] Reads Bible or Episcopalian materials [] There are Spiritual issues to be addressed Student Success Coach Interventions [x] Prayer [x] Active listening [] Non-anxious presence [] Spiritual/emotional support [] Crisis/trauma care [] Spiritual counseling [] Bereavement support [] Provided bereavement packet [] Provided Bible/devotional materials [] Provided toy/stuffed animal, coloring book to patient or family member [] Provided Communion [] Anointing/Steele [] Salvation [] Completed spiritual assessment [] Other: Impact on Illness or Injury [] Angry [] Fearful [] Anxious [] Often cries [] Exhaustion [] Unable to work [] Unable to attend latter day [] Unable to walk/stand [] Unable to read [] Unable to drive [] Unable to eat/drink [] Unable to sleep [] Unable to be with family [] Patient intubated [] Other: Summary patient doing good Time spent with patient 10 min
--- NOTE | 2020-11-19 09:28 | PC.CHAP ---
Pastoral Care Encounter/Spiritual Assessment Type of Contact [] Declined central supply technician supervisor visit [] Patient/Family/Request visit [] Outpatient visit [] Follow-up visit [] Physician referral [] Code/Alert [x] Routine visit [] Staff referral [] Actively dying [] Patient sleeping [] Family support [] [] Out of room [] Palliative care [] [] Receiving care in room [] Pre-surgical visit [] Trauma [] Long length of stay [] ICU visit [] Other: Relational/Emotional Strength [] Patient feels connected with others/family/visitors/staff [] Distress [] Loneliness/isolation [] Abandonment Spirituality of Patient [] Person of Viry [] Attends Temple of their Viry [] Believes in Prayer [] Reads Bible or Oriental Orthodox materials [] There are Spiritual issues to be addressed Tool Grinder Operator Surface Interventions [x] Prayer [x] Active listening [] Non-anxious presence [] Spiritual/emotional support [] Crisis/trauma care [] Spiritual counseling [] Bereavement support [] Provided bereavement packet [] Provided Bible/devotional materials [] Provided toy/stuffed animal, coloring book to patient or family member [] Provided Communion [] Anointing/Beulah [] Salvation [x] Completed spiritual assessment [] Other: Impact on Illness or Injury [] Angry [] Fearful [] Anxious [] Often cries [] Exhaustion [] Unable to work [] Unable to attend pentecostalism [] Unable to walk/stand [] Unable to read [] Unable to drive [] Unable to eat/drink [] Unable to sleep [] Unable to be with family [] Patient intubated [] Other: Summary patient feeling much better ready to go home Time spent with patient 10 min
[2020-11-19 12:00] VITALS: BP 122/81; PULSE 94; RESP 18; TEMP 36.9; O2SAT 93
[2020-11-19] MEDS: acetaminophen 325 mg Tablet 650 MG PO ×2 (12:03)
[2020-11-19 16:00] VITALS: BP 129/60; PULSE 85; RESP 18; TEMP 37.1; O2SAT 95
--- NOTE | 2020-11-19 16:55 | P.DS_ITS ---
Discharge Providers Date of Admission: 11/17/20 14:09 Date of Discharge: November 19, 2020 Attending Provider at Admission: Joseph Landon Attending Provider at Discharge: Inder Horton Primary Care Provider: Donal Doss Jr, MD Diagnoses at Discharge Discharge Diagnosis (1) Left acute arterial ischemic stroke, MCA (middle cerebral artery): Status: Resolved (2) Abnormal INR: Status: Acute (3) Atrial fibrillation: Status: Chronic (4) Antiphospholipid syndrome: Status: Chronic (5) Thrombophilia: Status: Chronic Reason for Visit Reason for Visit: POSSIBLE STROKE Hospital Course Hospital Course 60 year old female with past medical history of antiphospholipid syndrome, on chronic warfarin therapy, 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 She was being considered for TPA administration.She was rushed to CT.However while she was in the CT her symptoms started resolving. Second evaluation after CT revealed NIH of 0.Dr eedn was consulted she was of the opinion that the patient has Left acute arterial ischemic stroke, MCA (middle cerebral artery): given her Prolonged right hemiparesis and dysarthria, presumably subcortical or brainstem threatened stroke. No cortical involvement. Her symptoms resolved with normal saline. Her CT angiogram does not show a large vessel thrombosis or embolus. Her symptoms have resolved and so even though her pro time is only 1.2 she is not currently a candidate for TPA.she recommended watching her very carefully with frequent neuro checks. If her symptoms return she would be a TPA candidate, since she is neurologically fully normal now.She was also of the opinion that warfarin should be changed to Xarelto.She was started on aspirin 81 mg oral daily along with lipitor 20 mg oral daily. During her hospital sta se had no such similar episodes,apart for her residual lt sided weakness from her old CVA she had no other focal neurological deficits. For her subtherapeutic INR she was started on Heparin drip along with warfarin.She received Increased dose of warfarin 10 mg oral on 11/18.She was later switched to lovenox 100 mg sc q12 h daily and was asked to continue with her warfarin dose and follow with her warfarin clinic for goal INR (2-3).INR fluctuation can be seen in patients with APS. Per patient warfarin has worked fine for her for 9 years.She can be switched to xaralto by her PCP in agreement with patient wishes.MRI and MRA can be done as outpatient as since positive or negative findings would not alter the treatment at this time. She was discharged in stable condition she will follow her PCP as outpatient. Pertinent Imaging studies : Head CT without contrast 11/17/20: 1. No acute intracranial infarct or hemorrhage. 2. Large RIGHT MCA territory infarct. Head/Neck CTA 11/17/20 10:24 1. No significant carotid artery stenosis. 2. Proximal LEFT vertebral and origin of the LEFT common carotid artery and LEFT subclavian arteries are obscured by motion and artifact. 3. No cerebral aneurysms or occlusions. 2D ECHO :This is a limited quality echocardiogram. Contrast agent is used to visualize cardiac structures. LV systolic function is normal with EF of 60 to 65%. Grade 1 diastolic dysfunction is present. No gross abnormality of valvular structures is noted. No comparison studies are available. EKG :Sinus RHYTHM, rate: 93, VÍCTOR: 156, Qrs : 108 QtC: 458 Physical Exam Const: COMMON NORMALS: patient oriented x3 and alert ORIENTATION/CONSCIOUSNESS: Yes oriented to person, Yes oriented to place and Yes oriented to time HENMT: COMMON NORMALS: normocephalic and atraumatic HEAD & SCALP: normocephalic and atraumatic Resp: COMMON NORMALS: normal respiratory effort and clear to auscultation bilaterally EFFORT & INSPECTION: Yes symmetric chest movement AUSCULTATION: clear to auscultation bilaterally Cardio: COMMON NORMALS: regular rate, regular rhythm, S1 normal heart sound present, S2 normal heart sound present, No gallops present (Cardio), No murmurs present (Cardio), No rub (Cardio) and Peripheral pulses 2+ throughout RATE: regular rate RHYTHM: regular rhythm HEART SOUNDS: S1 normal heart sound present and S2 normal heart sound present PERIPHERAL PULSES: Peripheral pulses 2+ throughout GI: COMMON NORMALS: Normal to inspection, nondistended, normoactive bowel sounds present, Soft to palpation, non-tender, No hepatosplenomegaly present and no masses AUSCULTATION: Yes normoactive bowel sounds PALPATION: Yes Soft to palpation and Yes No hepatosplenomegaly present RECTAL EXAM: deferred Extremity: COMMON NORMALS: no clubbing, cyanosis or edema and no pedal edema Neuro: COMMON NORMALS: patient oriented x3 and CN's II-XII intact bilaterally SENSORIUM/ORIENTATION: Yes alert, Yes oriented to person, Yes oriented to place and Yes oriented to time COORDINATION/BALANCE: udrxbb-am-blyh test normal, fpze-sd-hvvw test normal, tandem gait normal and Romberg test negative SPEECH: speech normal GAIT: Yes Normal gait present COORDINATION: finge r-to-nose test normal, ymhq-pk-kyal test normal and tandem gait normal OTHER: 3-4 out of 5 weakness in the left upper and lower extremities. Mild numbness is present which is chronic according to the patient. Cerebellar tests seem to be intact. Discharge Data Data Completed and Pending: Completed Studies During Hospitalization Category Date Time Status CT angio headneck * [id number] Stat Cat Scan 11/17/20 10:[address] head wo con* [id number] Urgent Cat Scan 11/17/20 Completed XR chest 1V domitila ble [id number] Stat Exams 11/17/20 12:27 Completed CV echo wo/w cont rast [id number] Routine Ultrasound 11/18/20 06:00 Completed Pending at discharge Category Date Time Status Platelet Count Q2 D Lab 11/21/20 04:00 Ordered Prothrombin Time INR AM LABS Lab 11/20/20 04:00 Ordered Prothrombin Time INR AM LABS Lab 11/21/20 04:00 Ordered US/CV paperwork R outine Ultrasound 11/18/20 09:11 Taken Labs from last 24 hours 11/19/20 11/19/20 11/18/20 04:20 04:20 16:35 Plt Count 203 PT 14.90 INR 1.13 APTT 40.2 H D Vitals: Last Vital Signs Temp 98.7 F 11/19/20 16:00 Pulse 85 11/19/20 16:00 Resp 18 11/19/20 16:00 BP 129/60 11/19/20 16:00 Pulse Ox 95 11/19/20 16:00 Discharge Plan Discharge Patient Disposition: Home Condition: Stable Prescriptions: New Lovenox 100 mg/mL syringe 100 mg SUBCUT Q12H Qty: 1 RF: 0 aspirin 81 mg tablet,delayed release (DR/EC) 81 mg PO DAILY Qty: 30 RF: 0 Continued duloxetine [Cymbalta] 20 mg capsule,delayed release(DR/EC) 20 mg PO DAILY@21 RF: 0 warfarin [Coumadin] 1 mg tablet See Rx Instructions .ROUTE .COMPLEX RF: 0 simvastatin [Zocor] 10 mg tablet 10 mg PO DAILY@21 RF: 0 ropinirole [Requip] 0.25 mg tablet 0.25 mg PO DAILY@21 RF: 0 alprazolam 0.5 mg tablet 0.5 mg PO Q6H PRN (Reason: Anxiety) RF: 0 Sudogest 30 mg tablet 30 mg PO Q6H PRN (Reason: Nasal Congestion) RF: 0 Discharge Orders: Discharge Order (Routine); Ordered 11/19/20 Ordered By: Inder Horton Referrals: Donal Doss Jr, MD [Primary Care Provider] - 1 week (Please call Dr. Doss's office on Sunday to schedule an appointment to be seen in one week.) Discharge Diet: Usual diet Discharge Activity: Resume usual activity Patient Instructions: Enoxaparin (Injection), Transient Ischemic Attack (DC), Atrial Fibrillation (DC) Activity Restrictions/Additional Instructions: Patient has been discharged with Lovenox 100 mg sc q12 h daily and she will continue with the warfarin routine dose and will follow with her INR Clinic for further dose adjustment. Discharge Attestations Time Spent in Discharge Care*: greater than 30 min Specific Discharge Activities: educating patient, educating and/or supporting family/caregiver, discussing with complex case manager/social workers/dc planners, documenting/other paperwork and evaluating patient/reviewing data Status at Discharge: Cognitive status at discharge: cognitively intact , Behavioral status at discharge: cooperative , Functional status at discharge: independent ambulation Overall status at discharge: patient is back to baseline Quality Metrics Clinical Quality Measures During this hospital stay, did patient experience: None Coding Level of Care Code Acute 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
[2020-11-19 18:07] VITALS: BP 129/60; PULSE 85; RESP 18; TEMP 37.1; O2SAT 95
== END 2020-11-19 17:45 | disposition home or self-care (01) | DRG 65 ==
LOC: ER 12:10 → MEDSURG 17:22
PROVIDERS: Internal Medicine; Specialist; Admitting Provider Internal Medicine; Emergency Provider Family Medicine; PCP Family Medicine; Visit Provider Internal Medicine
DX: I63.81 Other cerebral infarction due to occlusion or stenosis of small artery (principal); G81.91 Hemiplegia, unspecified affecting right dominant side; I69.954 Hemiplegia and hemiparesis following unspecified cerebrovascular disease affecting left non-dominant side; R47.1 Dysarthria and anarthria; R29.810 Facial weakness; R29.707 NIHSS score 7; I48.91 Unspecified atrial fibrillation; K59.00 Constipation, unspecified; Z85.3 Personal history of malignant neoplasm of breast; E78.5 Hyperlipidemia, unspecified; G89.4 Chronic pain syndrome; R79.1 Abnormal coagulation profile; Z79.01 Long term (current) use of anticoagulants
CPT/HCPCS: 12345; 36415; 36416; 70450; 70496; 70498; 71045; 80053; 80061; 80306; 81003; 82962; 85025; 85049; 85610; 85730; 92523; 92610; 93005; 96372; 97161; 97165; 99283; 99291; C8929; J1644; J1650; J3490; J7030; Q9956; Q9967

== ENCOUNTER 2022-10-12 11:11 | Outpatient (CLI) | payer MEDICARE, SELFPAY ==
--- NOTE | 2022-10-12 11:20 | MM_ITS ---
WS: [id number] VIEWS: MLO, CC, and ML views left breast only right breast surgically absent.. 3D digital tomosynthe sis is also included in this exam. Comparison made with prior exam of 11/24/2015, 12/14/2015, 12/09/2019 12/04/2016,. Findings: There was no sign of mass, architectural distortion or suspicious calcification in either breast. Sc attered fibroglandular densities MM/[place] [id number] Impression: BI-RADS: 2-Benign FOLLOW-UP: 1 Year Follow-up This mammogram was also analyzed by the Computer Aided Detection System R2 Imag e [employer]ber Gr[employer].
== END 2022-10-12 11:12 | disposition home or self-care (01) ==
LOC: RAD 11:16
PROVIDERS: PCP Family Medicine; Visit Provider Family Medicine
DX: Z85.3 Personal history of malignant neoplasm of breast (principal)
CPT/HCPCS: 77061; G0279

== ENCOUNTER 2023-01-04 12:39 | Inpatient (IN) | payer MEDICARE, SELFPAY ==
[2023-01-04] VITALS (7 sets, daily range): BP systolic 138–180; BP diastolic 78–114; PULSE 99–105; RESP 16–18; TEMP 36.7–36.8; O2SAT 91–96; BMI 36.9
--- NOTE | 2023-01-04 13:02 | CT_ITS ---
WS: [id number] CT HEAD TECHNIQUE: Noncontrast CT of the head obtained from the skullbase to the vertex. CLINICAL INFORMATION: L sided deficit, onset 01/03 COMPARISON: None. DLP: 1032.[address] scans at [facility] use at least one of these dose optimization techniques: automated e xposure control; mA and/or kV adjustment per patient size (includes targeted exams where dose is matc hed to clinical indication); or iterative reconstruction. FINDINGS: No evidence of intracranial hemorrhage or mass effect. Ventricular system and basal cisterns are cloud nt. Mild small vessel changes with mild parenchymal volume loss. Chronic infarct RIGHT MCA territory with encephalomalacia was present in 2019. Chiari I Malformation appears unchanged. Ex vacuo dilatati on RIGHT lateral ventricle. Small chronic lacunar infarct LEFT lateral basal ganglia appears unchange d No extra-axial fluid collections. Paranasal sinuses and mastoid air cells are well aerated. .Normal visualized soft tissues. Normal pos terior nasopharynx. Normal parapharyngeal fat. CT/CT head wo con* [id number] IMPRESSION: 1. No evidence of intracranial hemorrhage or mass effect. 2. Chronic large RIGHT MCA territory infarct with encephalomalacia appears unc hanged since 2019. 3. Mild small vessel changes with mild parenchymal 4. Loss. 5. Chiari I malformation appears unchanged since 2019. No hydrocephalus. 6. No other suspicious findings.
--- NOTE | 2023-01-04 13:03 | CT_ITS ---
WS: [id number] CTA HEAD AND NECK TECHNIQUE: Contrast enhanced CTA of the head and neck with coronal and sagittal reformatted images an d maximum intensity projection (MIP) images. NASCET criteria utilized. CLINICAL INFORMATION: stroke symptoms, L sided COMPARISON: 2019 DLP: 529.[address] scans at [facility] use at least one of these dose optimization techniques: automated e xposure control; mA and/or kV adjustment per patient size (includes targeted exams where dose is matc hed to clinical indication); or iterative reconstruction. FINDINGS: RIGHT: Ovoid filling defect in the RIGHT mid cervical ICA at the level of the C2 vertebral body. This is new from 2020. This likely represents soft plaque and results in stenosis measuring approximately 60%. LEFT ICA remains patent to the skull base. Prior large RIGHT MCA territory infarct with encepha lomalacia. Proximal RIGHT MCA vessels are patent LEFT: No significant LEFT ICA stenosis. Normal vascularity to the HAILE and MCA territories bilaterally . Absent LEFT A1 segment. Azygos HAILE. Normal vascularity to the LEFT MCA territory. LEFT M1 segment i s patent. Both vertebral arteries are patent. Basilar artery is patent. Persistent LEFT ASSET COORDINATOR. Normal vascu larity to the ASSET COORDINATOR territory bilaterally. Atelectasis in the lung apices. Subclavian arteries appear patent. Normal caliber partially visualized thoracic aorta. Normal posteri or nasopharynx. Normal parapharyngeal fat. Mild spondylitic changes cervical spine. CT/CT angio headneck* [id number] IMPRESSION: 1. Filling defect in the RIGHT mid cervical ICA at the C2 level likely soft ec centric plaque is new from previous. This results in approximately 60% ICA sten osis. There is some slight irregularity and ulceration in this area previously 2020. ICA remains patent to the skull base. 2. No significant ICA stenosis at the bifurcations bilaterally. 3. Both vertebral arteries are patent. Proximal basilar artery is patent. Pers istent LEFT ASSET COORDINATOR. 4. Absent LEFT A1 segment with azygos HAILE territory supplied. 5. Normal vascularity to the proximal MCA territories bilaterally. 6. Chronic large RIGHT MCA territory infarct with encephalomalacia was present in 2019. 7. No other suspicious findings. Notified Raj Matias MD at 01/04/2023 3:11 PM.
--- NOTE | 2023-01-04 13:41 | ED_ITS ---
HPI - Neuro Symptoms/Deficit General: Chief Complaint: Neuro Symptoms/Deficit Stated Complaint: Possible stroke Time Seen by Provider: 01/04/23 13:08 Source: patient Mode of arrival: ambulatory History of Present Illness: 62-year-old female presents emergency room with left arm weakness. She is barely able to move it at all. She has a history of breast cancer. There were concerned about a possible stroke. She had hemorrhoid surgery yesterday in [place] and has been taken off of her warfarin for several days. Last night she went to bed around 1030 at that time she felt like she was having strokelike symptoms with weakness in her left arm. Her daughter went to check on her this morning at around 1130 and she could not move her left arm she can move her left leg she has no facial weakness is focal deficit to that arm. Previous stroke nearly a decade ago. Does have some left arm and leg residual symptoms predominantly the arm she said her sensation never came back and she is always had some difficulty with movement but this is markedly worse than it was previously. Onset (ago): hour(s) Time: 12:49 Last Observed Normal: 22:30 Location: left arm History of same: Yes Severity: severe Quality: weak and numb Relieving factors: none Exacerbating factors: none Context: other (Woke up with symptoms) Associated symptoms: Deny chest pain, cough, diaphoresis, fevers/chills, headache(s), anorexia, malaise, nausea, seizures, short of breath, syncope, tingling, vertigo, vomiting or weakness Treatments Prior to Arrival: none Review of Systems Const: Denies: fever(s), chills, fatigue, malaise or diaphoresis ENMT: Denies: throat pain, ear or mastoid pain, nasal discharge or nasal congestion Card: Denies: chest pain or syncope Resp: Denies: dyspnea, productive cough or non-productive cough GI: Denies: abdominal pain, nausea or vomiting : Denies: flank pain, difficulty voiding, dysuria, urinary frequency or urinary urgency Skin/Breast: Denies: rash or pruritus Neuro: Denies: headache(s) or vertigo PFS ED PFSH: Medical History Antiphospholipid syndrome Atrial fibrillation Left acute arterial ischemic stroke, MCA (middle cerebral artery) Transient cerebral ischemia Social History Smoking and tobacco status: never smoked Alcohol intake: never NIH stroke score NIHSS: Level Of Consciousness - 1a: 0 Level Of Consciousness Questions - 1b: Both Correct Level Of Consciousness Commands - 1c: Both Correct Best Gaze - 2: Normal Visual [place] - 3: No Visual Loss Facial Palsy - 4: Normal Motor Arm Right - 5: No Drift Motor Arm Left - 5: No Effort Against [place] Motor Leg Right - 6: No Drift Motor Leg Left - 6: No Drift Limb Ataxia - 7: Present In One Limb Sensory - 8: Mild To Moderate Loss Best Language - 9: No Aphasia Dysarthia - 10: Normal Extinction And Inattention - 11: 0 Score: Total Score: 5 Physical Exam Const: GENERAL APPEARANCE: cooperative and comfortable ORIENTATION/CONSCIOUSNESS: Yes awake, Yes oriented to person, Yes oriented to place and Yes oriented to time HENMT: COMMON NORMALS: normocephalic, atraumatic and hearing grossly normal bilaterally HEAD & SCALP: normocephalic and atraumatic Resp: COMMON NORMALS: normal respiratory effort, No retractions, No use of accessory muscles and clear to auscultation bilaterally AUSCULTATION: clear to auscultation bilaterally Cardio: COMMON NORMALS: regular rate, regular rhythm and No murmurs present (Cardio) RATE: regular rate RHYTHM: regular rhythm GI: COMMON NORMALS: Soft to palpation and No hepatosplenomegaly present AUSCULTATION: Yes normoactive bowel sounds PALPATION: Yes Soft to palpation, No Tenderness to palpation present (GI), No Guarding due to palpation present (GI) and Yes No hepatosplenomegaly present Extremity: COMMON NORMALS: normal to inspection, capillary refill normal, no clubbing, cyanosis or edema, no calf tenderness and no pedal edema Neuro: SENSORIUM/ORIENTATION: Yes oriented to person, Yes oriented to place and Yes oriented to time Skin: COMMON NORMALS: no rashes or lesions noted GENERAL SKIN EXAM: no rashes or lesions noted Course Vital Signs: Vital signs: Vital Signs Temperature 99.3 F 01/11/23 14:22 Pulse Rate 96 01/11/23 14:22 Respiratory Rate 17 01/11/23 16:00 Blood Pressure 117/71 01/11/23 14:22 Pulse Oximetry 98 01/11/23 14:22 Oxygen Delivery Me thod 01/11/23 08:00 Fraction of Inspir ed Oxygen 21 01/10/23 01:00 MDM - Neuro Symptoms/Deficit Medical Decision Making Head CT does not show any bleed. Her last known well is outside the window for any tPA. CTA did not show any acute large defects that would be amenable to embolectomy on her NIH score is 5 putting her below the threshold. By the time the CTA was completed she had improved function in her left arm. Or as initially she could barely move against gravity she is now able to lift and manipulate the fingers and picker tender helper items and manipulate them. Discussed this with her we will go ahead and admit the patient discussed with hospitalist orders written. Medical Records I reviewed the patient's medical records. Lab Data I reviewed the patient's lab results. 01/11/23 10:01 01/08/23 06:[address] 01/04/23 13:02 IMPRESSION: 1. No evidence of intracranial hemorrhage or mass effect. 2. Chronic large RIGHT MCA territory infarct with encephalomalacia appears unchanged since 2019. 3. Mild small vessel changes with mild parenchymal 4. Loss. 5. Chiari I malformation appears unchanged since 2019. No hydrocephalus. 6. No other suspicious findings. Head/Neck CTA 01/04/23 13:03 IMPRESSION: 1. Filling defect in the RIGHT mid cervical ICA at the C2 level likely soft eccentric plaque is new from previous. This results in approximately 60% ICA stenosis. There is some slight irregularity and ulceration in this area previously 2020. ICA remains patent to the skull base. 2. No significant ICA stenosis at the bifurcations bilaterally. 3. Both vertebral arteries are patent. Proximal basilar artery is patent. Persistent LEFT FRETTED INSTRUMENT INSPECTOR. 4. Absent LEFT A1 segment with azygos HAILE territory supplied. 5. Normal vascularity to the proximal MCA territories bilaterally. 6. Chronic large RIGHT MCA territory infarct with encephalomalacia was present in 2019. 7. No other suspicious findings. Notified Raj Matias MD at 01/04/2023 3:11 PM. KUB X-Ray 01/05/23 11:06 IMPRESSION: No acute abnormality. Head MRI 01/08/23 09:30 IMPRESSION: 1. Multiple punctate foci of restricted diffusion involving the RIGHT frontal and parietal deep white matter and RIGHT parasagittal occipital lobe consistent with acute ischemia. Findings suspicious for embolic or watershed infarcts. 2. Mild edema associated with the areas of acute ischemia. No significant mass effect or midline shift. 3. RIGHT MCA territory chronic infarct with encephalomalacia and gliosis. 4. No hemosiderin on the susceptibly weighted images. 5. No other suspicious findings. Message LEFT for Dr. Melida RENE at 01/08/2023 12:49 PM. Laboratory Results WBC 8.7 10^3/uL (4.0-10.0) 01/04/23 13:45 RBC 4.12 10^6/uL (4.1-5.3) 01/04/23 13:45 Hgb 12.1 g/dL (11.5-15.3) 01/04/23 13:45 Hct 37.6 % (37.0-47.0) 01/04/23 13:45 MCV 91.3 fl (81-99) 01/04/23 13:45 MCH 29.4 pg (28.0-34.0) 01/04/23 13:45 MCHC 32.2 g/dL (30.0-36.0) 01/04/23 13:45 RDW 12.1 % (12.1-15.1) 01/04/23 13:45 Plt Count 190 10^3/cmm (130-400) 01/04/23 13:45 MPV 11.1 fL (7.4-10.4) H 01/04/23 13:45 Neut % (Auto) 79.8 % 01/04/23 13:45 Lymph % (Auto) 10.5 % 01/04/23 13:45 [place] % (Auto) 9.4 % 01/04/23 13:45 Eos % (Auto) 0.0 % 01/04/23 13:45 Baso % (Auto) 0.1 % 01/04/23 13:45 Neut # (Auto) 6.90 10^3/uL (1.8-7.7) 01/04/23 13:45 Lymph # (Auto) 0.9 10^3/uL (0.8-4.8) 01/04/23 13:45 [place] # (Auto) 0.8 10^3/uL (0.2-0.9) 01/04/23 13:45 Eos # (Auto) 0.0 10^3/uL (0.0-0.8) 01/04/23 13:45 Baso # (Auto) 0.0 10^3/uL (0.0-0.1) 01/04/23 13:45 Nucleated RBC % (auto) 0 % 01/04/23 13:45 Nucleated RBCs # 0.0 /100WBC 01/04/23 13:45 PT 15.10 SECONDS (12.1-14.9) H 01/04/23 13:45 INR 1.15 (0.8-1.2) 01/04/23 13:45 APTT 37.0 SECONDS (23.9-36.7) H 01/04/23 13:45 Sodium 141 mmol/L (136-145) 01/04/23 13:45 Potassium 3.7 mmol/L (3.5-5.1) 01/04/23 13:45 Chloride 105 mmol/L (98-107) 01/04/23 13:45 Carbon Dioxide 27 mmol/L (22-29) 01/04/23 13:45 Anion Gap 12.7 (5-19) 01/04/23 13:45 BUN 10 mg/dL (8-23) 01/04/23 13:45 Creatinine 0.7 mg/dL (0.5-0.9) 01/04/23 13:45 GFR Calculation 85.4 mL/min (90-130) L 01/04/23 13:45 Glucose 112 mg/dL (65-115) 01/04/23 13:45 Calculated Osmolality 292 mOsm/kg (285-295) 01/04/23 13:45 Calcium 8.8 mg/dL (8.5-10.5) 01/04/23 13:45 Total Bilirubin 0.3 mg/dL (0.15-1.2) 01/04/23 13:45 AST 23 U/L (0-32) 01/04/23 13:45 ALT 28 U/L (0-33) 01/04/23 13:45 Alkaline Phosphatase 116 U/L (35-105) H 01/04/23 13:45 Total Protein 6.7 g/dL (6.6-8.7) 01/04/23 13:45 Albumin 4.3 g/dL (3.5-5.2) 01/04/23 13:45 Globulin 2.4 g/dL (1.3-4.6) 01/04/23 13:45 TSH 0.26 uIU/mL (0.27-4.20) L 01/04/23 13:45 Discharge Plan Discharge Patient Disposition: Admitted As Inpatient Admit Provider: Adama Montez Clinical Impression: CVA (cerebral vascular accident), Supratherapeutic INR, Left arm weakness Condition: Stable Discharge Diet: Cardiac Discharge Activity: Limit activity as instructed and As per PT/OT instructions Coding Level of Care Code ED Field Case Manager for Tracey Farrar
[2023-01-04 13:55] LABS: Basophils % 0.1 %; Hematocrit 37.6 % (37.0-47.0); Hemoglobin 12.1 g/dL (11.5-15.3); Lymphocytes # 0.9 10^3/uL (0.8-4.8); Lymphocytes % 10.5 %; Mean Corpuscular HGB Conc 32.2 g/dL (30.0-36.0); Mean Corpuscular Hemoglobin 29.4 pg (28.0-34.0); Mean Corpuscular Volume 91.3 fl (81-99); Mean Platelet Volume 11.1 fL (7.4-10.4); Monocytes # 0.8 10^3/uL (0.2-0.9); Monocytes % 9.4 %; Neutrophils % 79.8 %; Nucleated Red Blood Cells % 0 %; Platelet Count 190 10^3/cmm (130-400); Red Blood Count 4.12 10^6/uL (4.1-5.3); Red Cell Distribution Width 12.1 % (12.1-15.1); White Blood Count 8.7 10^3/uL (4.0-10.0)
[2023-01-04 14:11] LABS: INR 1.15 (0.8-1.2)
[2023-01-04 14:27] LABS: Alanine Aminotransferase 28 U/L (0-33); Albumin Level 4.3 g/dL (3.5-5.2); Alkaline Phosphatase 116 U/L (35-105); Anion Gap 12.7 (5-19); Aspartate Amino Transferase 23 U/L (0-32); Blood Urea Nitrogen 10 mg/dL (8-23); Calcium 8.8 mg/dL (8.5-10.5); Carbon Dioxide 27 mmol/L (22-29); Chloride 105 mmol/L (98-107); Globulin 2.4 g/dL (1.3-4.6); Glomerular Filtration Rate 85.4 mL/min (90-130); Glucose 112 mg/dL (65-115); Osmolality Calculated 292 mOsm/kg (285-295); Potassium 3.7 mmol/L (3.5-5.1); Sodium 141 mmol/L (136-145); Thyroid Stimulating Hormone 0.26 uIU/mL (0.27-4.20); Total Bilirubin 0.3 mg/dL (0.15-1.2); Total Protein 6.7 g/dL (6.6-8.7)
[2023-01-04 19:23] LABS: Add Urine Microscopic? YES; Bilirubin Urine Neg (Negative); Blood Urine 3+ (Negative); Glucose Urine UA Norm (Normal); Ketones Urine 1+ (Negative); Leukocyte Esterase Urine Negative (Negative); Nitrate Urine Negative (Negative); Protein Urine 1+ (Negative); Specific Gravity, Urine 1.005 (1.005-1.030); Urine Appearance Clear (CLEAR); Urine Color Yellow (Yellow); Urobilinogen Urine 1 mg/dL (Negative); pH Urine 5 (5-7)
--- NOTE | 2023-01-04 19:23 | P.HP_ITS ---
Providers/Chief Complaint Primary Care Provider: Missy Santana MD Chief Complaint: Possible stroke History of Present Illness Pleasant 62-year-old lady with remote history of right MCA CVA, APS, A-fib chronically on anticoagulation with warfarin target INR 2-3 underwent hemorrhoidectomy earlier this week, discontinued her warfarin, was bridged with Lovenox before the surgery. She states she resumed warfarin and aspirin after s urgery as per instructions. She has chronic residual left-sided facial droop, as well as chronic residual sensory deficits on the left. She presented to ER for evaluation due to waking up with left-sided weakness both upper and lower, worse in upper extremity. She did not notice any worsening in sensation. She had difficulty ambulating with weakness in the left lower extremity. Last known normal was last night. In ER she was assessed for acute CVA. No bleeding noted on CT head with visualized old large right MCA CVA with encephalomalacia. She was outside the window for tPA. CT angiogram head and neck was obtained without any large thrombosis, with noted 60% left-sided ICA stenosis. During her stay in ER she has been showing improvement in her symptoms. She is able to start closing her left hand and is able to lift the left arm, with persistent weakness and drift but much better than this morning. Review of Systems Const: Denies: fever(s), chills, body aches or malaise Eyes: Denies: change in vision, eye discomfort or eye redness ENMT: Denies: throat pain, oral sores or ear or mastoid pain Card: Denies: chest pain, edema, pre-syncope or dyspnea on exertion Resp: Denies: dyspnea, productive cough, change in phlegm color or hemoptysis GI: Denies: abdominal pain, nausea, vomiting, diarrhea, constipation, hematochezia or melena : Denies: flank pain, urinary frequency or hematuria Musc: Denies: back pain, joint swelling or joint redness Skin/Breast: Denies: rash or new lesions Neuro: Reports: numbness in extremities and weakness in extremities; Denies: headache(s), dizziness, confusion or seizure-like activity Endo: Denies: polyuria or polydipsia Joel/Lymph: Denies: easy bleeding or tender lymph nodes All/Imm: Denies: urticaria or tongue swelling Medications/Allergies Home Medications Medication Instructions Recorded Confirmed Last Taken Type duloxetine 20 mg capsule,delayed 20 mg PO DAILY@21 05/20/20 01/04/23 01/03/23 History release (Cymbalta) simvastatin 10 mg tablet (Zocor) 10 mg PO QPM 05/20/20 01/04/23 01/03/23 History alprazolam 0.5 mg tablet 0.5 mg PO Q6H PRN Anxiety 11/17/20 01/04/23 01/03/23 History pseudoephedrine HCl 30 mg tablet 30 mg PO Q6H PRN Nasal Congestion 11/17/20 01/04/23 11/17/20 History (Sudogest) aspirin 81 mg tablet,delayed 81 mg PO DAILY #30 tabs 11/19/20 01/04/23 01/03/23 Rx release hydrocodone 7.5 mg-acetaminophen 1 tab PO BID PRN Pain 01/04/23 01/04/23 Unknown History 325 mg tablet oxycodone 5 mg tablet 5 mg PO Q6H PRN Pain 01/04/23 01/04/23 Unknown History ropinirole 0.25 mg tablet 0.5 mg PO BEDTIME 01/04/23 01/04/23 01/03/23 History warfarin 5 mg tablet See Rx Instructions .Route .COMPLEX 01/04/23 01/04/23 01/03/23 History Allergies Allergy/AdvReac Type Severity Reaction Status Date / Time aspirin [From Percodan] Allergy ADR-Halluci Verified 01/04/23 14:47 nating oxycodone [From Percodan] Allergy ADR-Halluci Verified 01/04/23 14:47 nating PFSH Acute PFSH: Medical History Antiphospholipid syndrome Atrial fibrillation Left acute arterial ischemic stroke, MCA (middle cerebral artery) Transient cerebral ischemia Social History Smoking and tobacco status: never smoked Alcohol intake: never Vitals/I&O/Wt Last Vital Signs Temp 98.1 F 01/04/23 12:49 Pulse 105 H 01/04/23 12:49 Resp 18 01/04/23 12:49 BP 173/112 01/04/23 16:11 Pulse Ox 96 01/04/23 15:42 O2 Del Method 01/04/23 15:42 Physical Exam Narrative: Accompanied by her family, and son at bedside. Const: COMMON NORMALS: patient oriented x3 and alert GENERAL APPEARANCE: cooperative ORIENTATION/CONSCIOUSNESS: Yes awake HENMT: COMMON NORMALS: oropharynx normal Neck/C-Spine: COMMON NORMALS: no JVD Resp: COMMON NORMALS: normal respiratory effort and clear to auscultation bilaterally AUSCULTATION: clear to auscultation bilaterally Cardio: COMMON NORMALS: no JVD, regular rhythm, S1 normal heart sound present, S2 normal heart sound present and No murmurs present (Cardio) RHYTHM: regular rhythm HEART SOUNDS: S1 normal heart sound present and S2 normal heart sound present GI: COMMON NORMALS: Normal to inspection, nondistended, normoactive bowel sounds present, Soft to palpation and non-tender PALPATION: Yes Soft to palpation Extremity: COMMON NORMALS: no joint enlargement and no pedal edema Neuro: COMMON NORMALS: patient oriented x3 and moves all extremities SENSORIUM/ORIENTATION: Yes alert MENINGEAL SIGNS: Yes no meningeal signs COORDINATION/BALANCE: [id number] test normal (On the right) SPEECH: abnormal speech and expressive aphasia (Mild) SENSORY EXAM: Yes sensory level loss detected (Left-sided facial. Left upper and lower, chronic, unchanged.) MOTOR EXAM: Pronator motor function not present (On the right upper and lower.), Pronator motor function present pronator drift of left upper extremity and Other motor observations present (Drift left lower extremity.) COORDINATION: [id number]-vr-[id number] test normal (On the right) and other (Minimal difficulty with hsfd-ol-doph on the left.) Skin: COMMON NORMALS: no rashes or lesions noted GENERAL SKIN EXAM: no rashes or lesions noted Data 01/04/23 13:45 01/04/23 13:45 A&P Assessment and plan (1) CVA (cerebral vascular accident): She has restarted her warfarin, but has been subtherapeutic, she checked her INR yesterday and it was 1, similarly today INR is 1.15. She stopped bridging Lovenox for for surgery, resuming only warfarin afterward as per her discharge instructions. At risk of recurrence or progression of CVA due to APS. Discussed with her risk of bleeding with initiation of anticoagulation versus bleeding of further progression or recurrence of stroke. She and family are agreeable with initiation of with heparin drip as well as warfarin. Warfarin currently at slightly higher dose of 7 mg starting tomorrow. Monitoring of INR. Once INR is coming up closer to therapeutic may be able to return home with Lovenox bridging. Requesting follow-up blood counts. Currently permissive hypertension. Monitor blood pressures. Neurochecks. Requires close monitoring of INR, PTT, or any bleeding with recent hemorrhoid surgery. No increased statin to high intensity. PT, OT, ST. Case management. Follow-up with neurology after discharge. Discussed with ER physician. Reviewed ER physician documentation. Prior discharge summary. (2) Antiphospholipid syndrome: Continue anticoagulation, she normally takes warfarin, goal INR 2-3. She has an INR machine at home. Current INR reviewed, 1.15, subtherapeutic. As above, start warfarin 7 mg for now. Please reassess INR, de-escalate back to usual regimen. Monitor for bleeding. (3) S/P hemorrhoidectomy: Continue stool softener. Monitor for bleeding with resumption of anticoagulation. She has had some minimal spotting. (4) Intracranial carotid stenosis: Continue optimization of cardiovascular risk factors. Currently permissive hypertension, long-term would benefit from transition of hypertension. Plan Confirmed her medications with her and her son. Atrial fibrillation: Anticoagulation as above. Currently in sinus rhythm. Attestations Medical Necessity Statement*: Admission of over 2 midnights anticipated for assessment of management of CVA in a lady with antiphospholipid syndrome, atrial fibrillation, and lady who had just undergone hemorrhoid surgery. Diagnoses CVA (cerebral vascular accident) I63.9 Antiphospholipid syndrome D68.61 S/P hemorrhoidectomy Z98.890; Z87.19 Intracranial carotid stenosis I65.29
--- NOTE | 2023-01-04 19:55 | PC.NURSE ---
Patient alert and orientated. Left side weakness, left leg is able to move more than on arrival per patient. Left arm able to raise, but there is resistance. Scale Shooter are equal and moderate. Family at bedside.
[2023-01-04 20:03] LABS: Squamous Epithelial Cell Urine 0-4 /hpf (0-5); WBC Urine RARE /hpf (0-5)
--- NOTE | 2023-01-04 20:13 | PC.NURSE ---
Report called to Ashlyn on [facility].
[2023-01-04] MEDS: ALPRAZolam 0.5 mg Tablet PO (21:43)
[2023-01-04] MEDS: duloxetine 20 mg Capsule PO (21:43)
[2023-01-04] MEDS: ropinirole 0.25 mg Tablet 0.5 MG PO (21:43)
[2023-01-04] MEDS: atorvastatin 40 mg Tablet PO (21:43)
--- NOTE | 2023-01-04 22:03 | PC.PHAR ---
Warfarin and Heparin clarified. Patient is to be on both Thank you Delia Nguyen [facility]
[2023-01-04] MEDS: heparin 5,000 unit/mL INJ 1 mL IV (23:49)
[2023-01-04] MEDS: heparin drip 25,000 UNIT/500 ML PREMIX 27 UNIT IV (23:53)
[2023-01-04] MEDS: oxyCODONE 5 mg IR Tab/Cap PO (23:58)
[2023-01-05] VITALS (11 sets, daily range): BP systolic 155–167; BP diastolic 74–99; PULSE 103–115; RESP 16–20; TEMP 36.8–37.1; O2SAT 92–96; BMI 19.1
[2023-01-05 05:57] LABS: Basophils % 0.2 %; Eosinophils % 0.3 %; Hematocrit 37.7 % (37.0-47.0); Hemoglobin 12.1 g/dL (11.5-15.3); Lymphocytes # 1.4 10^3/uL (0.8-4.8); Lymphocytes % 16.1 %; Mean Corpuscular HGB Conc 32.1 g/dL (30.0-36.0); Mean Corpuscular Hemoglobin 29.2 pg (28.0-34.0); Mean Corpuscular Volume 90.8 fl (81-99); Mean Platelet Volume 11.4 fL (7.4-10.4); Monocytes # 0.7 10^3/uL (0.2-0.9); Monocytes % 7.3 %; Neutrophils % 75.8 %; Nucleated Red Blood Cells % 0 %; Platelet Count 165 10^3/cmm (130-400); Red Blood Count 4.15 10^6/uL (4.1-5.3); Red Cell Distribution Width 12.3 % (12.1-15.1); White Blood Count 8.9 10^3/uL (4.0-10.0)
[2023-01-05] MEDS: oxyCODONE 5 mg IR Tab/Cap PO ×3 (06:12→22:28)
[2023-01-05 06:33] LABS: Partial Thromboplastin Time 244.8 SECONDS (23.9-36.7)
--- NOTE | 2023-01-05 06:40 | PC.NURSE ---
pts' PTT 244.8. notified , IV pump stopped.
[2023-01-05 10:05] LABS: Partial Thromboplastin Time 49.4 SECONDS (23.9-36.7)
--- NOTE | 2023-01-05 11:06 | XRR_ITS ---
PROCEDURE INFORMATION: Exam: XR Abdomen Exam date and time: 01/05/2023 11:12 AM Age: 62 years old Clinical indication: Abdominal pain; Generalized TECHNIQUE: Imaging protocol: Radiologic exam of the abdomen. Views: Frontal supine view of the abdomen. 1 View. COMPARISON: CR XR abdomen min 2V [id number] 11/10/2020 11:18 AM FINDINGS: Lungs: Small benign calcified granulomas are present in the spleen. Gastrointestinal tract: Normal. No bowel dilation. Intraperitoneal space: Surgical clips are present in the abdomen. Organs: Residual contrast is present in the urinary bladder. Bones/joints: Chronic degenerative changes are present in the spine. XR/XR KUB portable [id number] IMPRESSION: No acute abnormality.
[2023-01-05] MEDS: docusate sodium 100 mg Capsule PO ×2 (11:12→17:55)
[2023-01-05] MEDS: aspirin 81 mg EC Tablet PO (11:12)
[2023-01-05] MEDS: heparin 5,000 unit/mL INJ 1 mL IV (11:37)
[2023-01-05 11:59] LABS: Glucose Point of Care 96 mg/dL (70-110)
[2023-01-05] MEDS: warfarin 2 mg Tablet 4 MG PO (14:14)
[2023-01-05] MEDS: warfarin 3 mg Tablet PO (14:15)
[2023-01-05] MEDS: polyethylene glycol 3350 Pkt 17 gm PO (16:12)
--- NOTE | 2023-01-05 16:52 | P.PN_ITS ---
Subjective Subjective: Patient was seen this morning, at bedside, she tells me that she has a little bit more mobility in her left upper extremity, since her prior stroke she used to have paresthesias in the left upper extremity, now she has significant lack of mobility in the left upper extremity, she has good left lower extremity strength, she has double trouble coordinating left hand, she has some paresthesias of her left hand, no facial paresthesias no visual deficits, no lack of peripheral vision, no facial droop that I could discern, no slurring of her words, no word finding difficulty, she tells me that this is her third significant stroke, she had a hospitalization here at [facility] for a CVA on anticoagulation Vitals/I&O/Wt Last Vital Signs Temp 98.7 F 01/05/23 12:00 Pulse 112 H 01/05/23 12:00 Resp 18 01/05/23 16:12 BP 158/99 01/05/23 12:00 Pulse Ox 92 01/05/23 16:12 O2 Del Method 01/05/23 04:00 01/05/23 01/05/23 01/05/23 06:59 14:59 22:59 Intake Total 240 / 240 Output Total 200 / 200 Balance 40 / 40 Weight last 48 hrs Weight 49.045 kg Weight 94.546 kg Physical Exam Const: COMMON NORMALS: no acute distress and patient oriented x3 Resp: COMMON NORMALS: normal respiratory effort, No retractions, No use of accessory muscles and clear to auscultation bilaterally AUSCULTATION: clear to auscultation bilaterally Cardio: COMMON NORMALS: regular rate, regular rhythm, S1 normal heart sound present and S2 normal heart sound present RATE: regular rate RHYTHM: regular rhythm HEART SOUNDS: S1 normal heart sound present and S2 normal heart sound present GI: COMMON NORMALS: Normal to inspection, nondistended, normoactive bowel sounds present and non-tender Extremity: COMMON NORMALS: no pedal edema Neuro: COMMON NORMALS: patient oriented x3 OTHER: Left upper extremity strength, 1 out of 5, lack of coordination left hand, strength, 1 out of 5, no facial droop, no slurring of words, left lower extremity strength 4 out of 5 Psych: COMMON NORMALS: mental status grossly normal Data 01/05/23 05:50 01/04/23 13:45 A&P Assessment and plan (1) CVA (cerebral vascular accident): This is patient's third recurrence of CVA, since being on anticoagulation, seems as if this 1 was due to subtherapeutic INR She has restarted her warfarin, but has been subtherapeutic, she checked her INR yesterday and it was 1, similarly today INR is 1.15. She stopped bridging Lovenox for for surgery, resuming only warfarin afterward as per her discharge instructions. At risk of recurrence or progression of CVA due to APS. Discussed with her risk of bleeding with initiation of anticoagulation versus bleeding of further progression or recurrence of stroke. She and family are agreeable with init iation of with heparin drip as well as warfarin. Pharmacy to dose Coumadin. Monitoring of INR. Once INR is coming up closer to therapeutic may be able to return home with Lovenox bridging. Requesting follow-up blood counts. Currently permissive hypertension. Monitor blood pressures. Neurochecks. Requires close monitoring of INR, PTT, or any bleeding with recent hemorrhoid surgery. No increased statin to high intensity. PT, OT, ST. Case management. Will Follow-up with neurology after discharge. (2) Antiphospholipid syndrome: Continue anticoagulation, she normally takes warfarin, goal INR 2-3. She has an INR machine at home. Current INR reviewed, will consult pharmacy for Coumadin dosing, monitor INR continue heparin drip (3) S/P hemorrhoidectomy: Continue stool softener. Monitor for bleeding with resumption of anticoagulat ion. She has had some minimal spotting. (4) Intracranial carotid stenosis: Continue optimization of cardiovascular risk factors. Currently permissive hypertension, long-term would benefit from transition of hypertension. (5) Left arm weakness: Plan Confirmed her medications with her and her son. Atrial fibrillation: Anticoagulation as above. Currently in sinus rhythm. Attestations Medical Necessity Statement*: Patient requires hospitalization for acute CVA, subtherapeutic INR A-fib, Coding Level of Care Code 20193 Diagnoses CVA (cerebral vascular accident) I63.9 Antiphospholipid syndrome D68.61 S/P hemorrhoidectomy Z98.890; Z87.19 Intracranial carotid stenosis I65.29 Left arm weakness R29.898
[2023-01-05 17:03] LABS: Glucose Point of Care 103 mg/dL (70-110)
[2023-01-05] MEDS: duloxetine 20 mg Capsule PO (20:36)
[2023-01-05] MEDS: ropinirole 0.25 mg Tablet 0.5 MG PO (20:36)
[2023-01-05] MEDS: atorvastatin 40 mg Tablet PO (20:37)
[2023-01-05] MEDS: ALPRAZolam 0.5 mg Tablet PO (20:37)
[2023-01-05 21:23] LABS: Partial Thromboplastin Time 230.6 SECONDS (23.9-36.7)
[2023-01-05 21:28] LABS: Glucose Point of Care 105 mg/dL (70-110)
[2023-01-06] VITALS (14 sets, daily range): BP systolic 114–156; BP diastolic 76–94; PULSE 71–117; RESP 16–20; TEMP 36.4–37.7; O2SAT 92–96
[2023-01-06 01:58] LABS: Basophils % 0.3 %; Eosinophils # 0.1 10^3/uL (0.0-0.8); Eosinophils % 0.7 %; Hematocrit 40.4 % (37.0-47.0); Lymphocytes # 1.3 10^3/uL (0.8-4.8); Lymphocytes % 16.7 %; Mean Corpuscular HGB Conc 32.2 g/dL (30.0-36.0); Mean Corpuscular Hemoglobin 29.4 pg (28.0-34.0); Mean Corpuscular Volume 91.4 fl (81-99); Mean Platelet Volume 11.1 fL (7.4-10.4); Monocytes # 0.8 10^3/uL (0.2-0.9); Monocytes % 10.8 %; Neutrophils # 5.41 10^3/uL (1.8-7.7); Neutrophils % 71.2 %; Nucleated Red Blood Cells % 0 %; Platelet Count 178 10^3/cmm (130-400); Red Blood Count 4.42 10^6/uL (4.1-5.3); Red Cell Distribution Width 12.4 % (12.1-15.1); White Blood Count 7.6 10^3/uL (4.0-10.0)
[2023-01-06 02:13] LABS: INR 1.45 (0.8-1.2)
[2023-01-06 02:14] LABS: Partial Thromboplastin Time 55.3 SECONDS (23.9-36.7)
[2023-01-06 02:20] LABS: Blood Urea Nitrogen 6 mg/dL (8-23); Calcium 9.1 mg/dL (8.5-10.5); Carbon Dioxide 30 mmol/L (22-29); Chloride 99 mmol/L (98-107); Glucose 109 mg/dL (65-115); Osmolality Calculated 288 mOsm/kg (285-295); Sodium 140 mmol/L (136-145)
[2023-01-06] MEDS: heparin drip 25,000 UNIT/500 ML PREMIX 27 UNIT IV (03:42)
[2023-01-06] MEDS: oxyCODONE 5 mg IR Tab/Cap PO ×3 (04:42→19:56)
[2023-01-06 06:45] LABS: Glucose Point of Care 108 mg/dL (70-110)
[2023-01-06] MEDS: metoprolol tartrate 25 mg Tablet PO ×2 (09:24→19:56)
[2023-01-06] MEDS: enoxaparin 100 mg/mL Syringe SUBCUT ×2 (09:24→19:57)
[2023-01-06] MEDS: polyethylene glycol 3350 Pkt 17 gm PO (09:24)
[2023-01-06] MEDS: docusate sodium 100 mg Capsule PO (09:24)
[2023-01-06] MEDS: aspirin 81 mg EC Tablet PO (09:24)
[2023-01-06 09:49] LABS: Partial Thromboplastin Time 168.9 SECONDS (23.9-36.7)
[2023-01-06] MEDS: warfarin 5 mg Tablet PO (13:05)
--- NOTE | 2023-01-06 13:46 | P.PN_ITS ---
Subjective Subjective: Patient was seen this morning, she is quite happy as she has increased mobility in her left hand, better coordination, her shoulder strength has improved, her family helped her up to the bathroom she has trouble coordinating, but has good strength in her left leg she tells me Vitals/I&O/Wt Last Vital Signs Temp 97.8 F 01/06/23 11:54 Pulse 71 01/06/23 11:54 Resp 16 01/06/23 13:05 BP 114/76 01/06/23 11:54 Pulse Ox 96 01/06/23 13:05 O2 Del Method 01/06/23 11:54 FiO2 21 01/05/23 00:15 01/05/23 01/06/23 01/06/23 22:59 06:59 14:59 Intake Total 740 / 980 515.25 / 515.25 Balance 740 / 780 515.25 / 515.25 Weight last 48 hrs Weight 98.747 kg Weight 94.801 kg Weight 49.045 kg Weight 94.546 kg Physical Exam Const: COMMON NORMALS: no acute distress and patient oriented x3 Resp: COMMON NORMALS: normal respiratory effort, No retractions, No use of accessory muscles and clear to auscultation bilaterally AUSCULTATION: clear to auscultation bilaterally Cardio: COMMON NORMALS: regular rate, regular rhythm, S1 normal heart sound present and S2 normal heart sound present RATE: regular rate RHYTHM: regular rhythm HEART SOUNDS: S1 normal heart sound present and S2 normal heart sound present GI: COMMON NORMALS: Normal to inspection, nondistended, normoactive bowel sounds present and non-tender Extremity: COMMON NORMALS: no pedal edema Neuro: COMMON NORMALS: patient oriented x3 OTHER: Left hand hand, strength 3 out of 5, still trouble coordinating, but improving, left shoulder strength 3 out of 5 Psych: COMMON NORMALS: mental status grossly normal Data 01/06/23 01:45 01/06/23 01:45 A&P Assessment and plan (1) CVA (cerebral vascular accident): \This is patient's third recurrence of CVA, since being on anticoagulation, seems as if this 1 was due to subtherapeutic INR She has restarted her warfarin, but has been subtherapeutic, she checked her INR yesterday and it was 1, similarly today INR is 1.15. She stopped bridging Lovenox for for surgery, resuming only warfarin afterward as per her discharge instructions. At risk of recurrence or progression of CVA due to APS. Discussed with her risk of bleeding with initiation of anticoagulation versus bleeding of further progression or recurrence of stroke. She and family are agreeable with initiation of with heparin drip as well as warfarin. Pharmacy to dose Coumadin. Monitoring of INR. Plan for today heparin drip due to persistent elevated PTTs, switch to therapeutic Lovenox, INR 1.45, pharmacy Coumadin dosing Requesting follow-up blood counts. Completed permissive hypertension, start metoprolol 25 twice daily. Monitor blood pressures. Neurochecks. Requires close monitoring of INR, PTT, or any bleeding with recent hemorrhoid surgery. MRI of the brain ordered No increased statin to high intensity. PT, OT, ST. Case management. Will Follow-up with neurology after discharge. (2) Antiphospholipid syndrome: Continue anticoagulation, she normally takes warfarin, goal INR 2-3. She has an INR machine at home. Current INR reviewed, will consult pharmacy for Coumadin dosing, monitor INR continue heparin drip (3) S/P hemorrhoidectomy: Continue stool softener. Monitor for bleeding with resumption of ant icoagulation. She has had some minimal spotting. (4) Intracranial carotid stenosis: Continue optimization of cardiovascular risk factors. Currently permissive hypertension, long-term would benefit from transition of hypertension. (5) Left arm weakness: Plan Confirmed her medications with her and her son. Atrial fibrillation: Anticoagulation as above. Currently in sinus rhythm. Attestations Medical Necessity Statement*: Patient requires hospitalization for acute CVA, with left-sided deficits, working alf placement plan for today stop heparin drip due to persistent elevated PTT switch to therapeutic Lovenox, continue PT OT, metoprolol started yesterday 25 twice daily monitor blood pressures MRI of the head ordered Coding Level of Care Code 06956 Diagnoses CVA (cerebral vascular accident) I63.9 Antiphospholipid syndrome D68.61 S/P hemorrhoidectomy Z98.890; Z87.19 Intracranial carotid stenosis I65.29 Left arm weakness R29.898
[2023-01-06] MEDS: acetaminophen 325 mg Tablet 650 MG PO (16:18)
[2023-01-06] MEDS: ALPRAZolam 0.5 mg Tablet PO (18:01)
[2023-01-06] MEDS: atorvastatin 40 mg Tablet PO (19:55)
[2023-01-06] MEDS: ropinirole 0.25 mg Tablet 0.5 MG PO (19:56)
[2023-01-06] MEDS: duloxetine 20 mg Capsule PO (19:56)
[2023-01-06 22:09] LABS: Glucose Point of Care 109 mg/dL (70-110)
[2023-01-07] VITALS (11 sets, daily range): BP systolic 135–159; BP diastolic 76–99; PULSE 77–99; RESP 16–21; TEMP 36.8–37.4; O2SAT 90–98
[2023-01-07] MEDS: oxyCODONE 5 mg IR Tab/Cap PO (02:55)
[2023-01-07 05:43] LABS: Basophils % 0.2 %; Eosinophils # 0.1 10^3/uL (0.0-0.8); Eosinophils % 0.6 %; Hematocrit 41.1 % (37.0-47.0); Hemoglobin 12.9 g/dL (11.5-15.3); Lymphocytes # 1.4 10^3/uL (0.8-4.8); Lymphocytes % 13.1 %; Mean Corpuscular HGB Conc 31.4 g/dL (30.0-36.0); Mean Corpuscular Hemoglobin 28.9 pg (28.0-34.0); Mean Corpuscular Volume 92.2 fl (81-99); Mean Platelet Volume 11.2 fL (7.4-10.4); Monocytes % 9.3 %; Neutrophils # 7.87 10^3/uL (1.8-7.7); Neutrophils % 76.5 %; Nucleated Red Blood Cells % 0 %; Platelet Count 215 10^3/cmm (130-400); Red Blood Count 4.46 10^6/uL (4.1-5.3); Red Cell Distribution Width 12.2 % (12.1-15.1); White Blood Count 10.3 10^3/uL (4.0-10.0)
[2023-01-07 05:58] LABS: INR 1.88 (0.8-1.2)
[2023-01-07 06:05] LABS: Anion Gap 15.5 (5-19); Blood Urea Nitrogen 13 mg/dL (8-23); Calcium 9.3 mg/dL (8.5-10.5); Carbon Dioxide 28 mmol/L (22-29); Chloride 100 mmol/L (98-107); Glomerular Filtration Rate 125.9 mL/min (90-130); Glucose 114 mg/dL (65-115); Osmolality Calculated 291 mOsm/kg (285-295); Potassium 3.5 mmol/L (3.5-5.1); Sodium 140 mmol/L (136-145)
[2023-01-07 07:37] LABS: Glucose Point of Care 99 mg/dL (70-110)
[2023-01-07] MEDS: enoxaparin 100 mg/mL Syringe SUBCUT ×2 (08:58→21:38)
[2023-01-07] MEDS: aspirin 81 mg EC Tablet PO (08:58)
[2023-01-07] MEDS: docusate sodium 100 mg Capsule PO ×2 (08:58→17:43)
[2023-01-07] MEDS: metoprolol tartrate 25 mg Tablet PO ×2 (08:58→21:38)
[2023-01-07] MEDS: amlodipine 10 mg Tablet PO (10:00)
--- NOTE | 2023-01-07 11:17 | PC.SOCIAL ---
IMM Update pg 2 of IMM updated and reviewed w/ patient. Copy provided and Copy dated, initialed and placed in chart.
[2023-01-07 12:13] LABS: Glucose Point of Care 115 mg/dL (70-110)
--- NOTE | 2023-01-07 12:27 | P.PN_ITS ---
Subjective Subjective: Patient was seen this morning, she is quite happy as her INR is 1.88, she has more mobility in her left arm, left hand, she was able to ambulate, she does feel unbalanced Vitals/I&O/Wt Last Vital Signs Temp 98.2 F 01/07/23 08:00 Pulse 93 01/07/23 08:00 Resp 18 01/07/23 08:00 BP 152/99 01/07/23 08:00 Pulse Ox 90 01/07/23 08:00 O2 Del Method 01/07/23 08:00 FiO2 21 01/05/23 00:15 01/06/23 01/07/23 01/07/23 22:59 06:59 14:59 Intake Total 360 / 875.25 120 / 995.25 0 / 0 Balance 360 / 875.25 120 / 995.25 0 / 0 Weight last 48 hrs Weight 98.747 kg Weight 94.801 kg Physical Exam Const: COMMON NORMALS: no acute distress and patient oriented x3 Neck/C-Spine: COMMON NORMALS: no JVD Resp: COMMON NORMALS: normal respiratory effort, No retractions, No use of accessory muscles and clear to auscultation bilaterally AUSCULTATION: clear to auscultation bilaterally Cardio: COMMON NORMALS: no JVD, regular rate, regular rhythm, S1 normal heart sound present and S2 normal heart sound present RATE: regular rate RHYTHM: regular rhythm HEART SOUNDS: S1 normal heart sound present and S2 normal heart sound present GI: COMMON NORMALS: Normal to inspection, nondistended, normoactive bowel sounds present and non-tender Extremity: COMMON NORMALS: no pedal edema NARRATIVE EXTREMITY EXAM: Left hand, strength 3 out of 5 left arm strength 3 out of 5, compared to the right, has increased mobility of the hand, increase mobility, increase coordination Neuro: COMMON NORMALS: patient oriented x3 Psych: COMMON NORMALS: mental status grossly normal Data 01/07/23 05:36 01/07/23 05:36 A&P Assessment and plan (1) CVA (cerebral vascular accident): This is patient's third recurrence of CVA, since being on anticoagulation, seems as if this 1 was due to subtherapeutic INR She has restarted her warfarin, but has been subtherapeutic, she checked her INR yesterday and it was 1, similarly today INR is 1.15. She stopped bridging Lovenox for for surgery, resuming only warfarin afterward as per her discharge instructions. At risk of recurrence or progression of CVA due to APS. Discussed with her risk of bleeding with initiation of anticoagulation versus bleeding of further progression or recurrence of stroke. She and family are agreeable with initiation of with heparin drip as well as warfarin. Pharmacy to dose Coumadin. Monitoring of INR. Continue to take Lovenox, INR 1.88, would bridge for 48 hours of therapeutic INR before taking off Lovenox pharmacy Coumadin dosing Requesting follow-up blood counts. Completed permissive hypertension, remains hypertensive, start metoprolol 25 twice daily. Add Norvasc 10 mg once daily monitor blood pressures. Neurochecks. Requires close monitoring of INR, PTT, or any bleeding with recent hemorrhoid surgery. MRI of the brain ordered No increased statin to high intensity. Currently on clear liquids, speech therapy evaluating, advance as per recommendations PT, OT, ST. Case management. Will Follow-up with neurology after discharge. (2) Antiphospholipid syndrome: Continue anticoagulation, she normally takes warfarin, goal INR 2-3. She has an INR machine at home. Current INR reviewed, will consult pharmacy for Coumadin dosing, monitor INR continue heparin drip (3) S/P hemorrhoidectomy: Continue stool softener. Monitor for bleeding with resumption of anticoagulation. She has had some minimal spotting. (4) Intracranial carotid stenosis: Continue optimization of cardiovascular risk factors. Currently permissive hy pertension, long-term would benefit from transition of hypertension. (5) Left arm weakness: Plan Confirmed her medications with her and her son. Atrial fibrillation: Anticoagulation as above. Currently in sinus rhythm. Attestations Medical Necessity Statement*: Patient requires hospitalization for acute CVA, subtherapeutic INR, requiring bridging with Lovenox and Coumadin Diagnoses CVA (cerebral vascular accident) I63.9 Antiphospholipid syndrome D68.61 S/P hemorrhoidectomy Z98.890; Z87.19 Intracranial carotid stenosis I65.29 Left arm weakness R29.898
[2023-01-07] MEDS: acetaminophen 325 mg Tablet 650 MG PO ×2 (12:32→23:53)
[2023-01-07] MEDS: warfarin 5 mg Tablet PO (14:19)
[2023-01-07] MEDS: duloxetine 20 mg Capsule PO (21:38)
[2023-01-07] MEDS: atorvastatin 40 mg Tablet PO (21:38)
[2023-01-07] MEDS: ropinirole 0.25 mg Tablet 0.5 MG PO (21:38)
[2023-01-07] MEDS: ALPRAZolam 0.5 mg Tablet PO (21:40)
[2023-01-08] VITALS (10 sets, daily range): BP systolic 126–163; BP diastolic 75–93; PULSE 86–107; RESP 16–18; TEMP 36.7–37.2; O2SAT 93–97; BMI 37.3
[2023-01-08 06:59] LABS: Basophils % 0.2 %; Eosinophils # 0.1 10^3/uL (0.0-0.8); Hematocrit 41.1 % (37.0-47.0); Hemoglobin 13.3 g/dL (11.5-15.3); Lymphocytes # 1.4 10^3/uL (0.8-4.8); Lymphocytes % 14.1 %; Mean Corpuscular HGB Conc 32.4 g/dL (30.0-36.0); Mean Corpuscular Hemoglobin 28.9 pg (28.0-34.0); Mean Corpuscular Volume 89.3 fl (81-99); Mean Platelet Volume 11.2 fL (7.4-10.4); Monocytes % 10.6 %; Neutrophils # 7.23 10^3/uL (1.8-7.7); Neutrophils % 73.8 %; Nucleated Red Blood Cells % 0 %; Platelet Count 243 10^3/cmm (130-400); Red Cell Distribution Width 12.2 % (12.1-15.1); White Blood Count 9.8 10^3/uL (4.0-10.0)
[2023-01-08 07:19] LABS: Anion Gap 14.6 (5-19); Blood Urea Nitrogen 11 mg/dL (8-23); Carbon Dioxide 28 mmol/L (22-29); Chloride 99 mmol/L (98-107); Glucose 114 mg/dL (65-115); Osmolality Calculated 286 mOsm/kg (285-295); Potassium 3.6 mmol/L (3.5-5.1); Sodium 138 mmol/L (136-145)
[2023-01-08] MEDS: acetaminophen 325 mg Tablet 650 MG PO ×3 (07:19→19:41)
[2023-01-08 07:22] LABS: INR 2.01 (0.8-1.2)
[2023-01-08] MEDS: metoprolol tartrate 25 mg Tablet PO ×2 (08:05→19:41)
[2023-01-08] MEDS: enoxaparin 100 mg/mL Syringe SUBCUT (08:05)
[2023-01-08] MEDS: docusate sodium 100 mg Capsule PO ×2 (08:05→17:34)
[2023-01-08] MEDS: polyethylene glycol 3350 Pkt 17 gm PO (08:05)
[2023-01-08] MEDS: aspirin 81 mg EC Tablet PO (08:05)
[2023-01-08] MEDS: amlodipine 10 mg Tablet PO (08:06)
--- NOTE | 2023-01-08 09:30 | MR_ITS ---
WS: [id number] MRI HEAD WITHOUT CONTRAST TECHNIQUE: Sagittal T1, T2 axial, T2 axial FLAIR, axial and coronal T1 images, axial susceptibility w eighted imaging, axial diffusion weighted images, and coronal T2 images were obtained. CLINICAL INFORMATION: cva COMPARISON: CT January 04, 2023 FINDINGS: Multiple patchy punctate foci of restricted diffusion involving the deep frontal and parietal white m atter bilaterally. Additional foci of restricted diffusion involving the RIGHT cortical pericentral o ccipital lobe measuring 1.1 x 0.9 CM. Mild associated edema in the areas of acute ischemia. No signif icant mass effect or midline shift. Recommend correlation with embolic or watershed infarcts. Chronic RIGHT MCA territory infarct with encephalomalacia. Ex vacuo dilatation RIGHT lateral ventricl e. 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 4th ventricle is normal. Normal posterior fossa. Normal vascular flow voids at the skull base. No extra-axial fluid collections. Mild mucosal thickening in the parana elnaa sinuses. Normal posterior nasopharynx. Normal parapharyngeal fat. Normal optic chiasm and pituita ry infundibulum. Normal cavernous sinuses and Meckel's cave. Mild symmetric atrophy RIGHT greater laz n LEFT temporal lobes and hippocampal formations. MR/MR head wo con* [id number] IMPRESSION: 1. Multiple punctate foci of restricted diffusion involving the RIGHT frontal and parietal deep white matter and RIGHT parasagittal occipital lobe consistent with acute ischemia. Findings suspicious for embolic or watershed infarcts. 2. Mild edema associated with the areas of acute ischemia. No significant mass effect or midline shift. 3. RIGHT MCA territory chronic infarct with encephalomalacia and gliosis. 4. No hemosiderin on the susceptibly weighted images. 5. No other suspicious findings. Message LEFT for Dr. Melida RENE at 01/08/2023 12:49 PM.
--- NOTE | 2023-01-08 11:14 | PC.NURSE ---
Patient had a moderate amount of blood in commode and in pull-up. Dr. Montez notified. No orders given.
[2023-01-08 11:20] LABS: Glucose Point of Care 176 mg/dL (70-110)
--- NOTE | 2023-01-08 11:53 | PC.CHAP ---
Pastoral Care Encounter/Spiritual Assessment Type of Contact [] Declined landscape engineer visit [] Patient/Family/Request visit [] Outpatient visit [] Follow-up visit [] Physician referral [] Code/Alert [x] Routine visit [] Staff referral [] Actively dying [] Patient sleeping [x] Family support [] [] Out of room [] Palliative care [] [] Receiving care in room [] Pre-surgical visit [] Trauma [] Long length of stay [] ICU visit [] Other: Relational/Emotional Strength [x] Patient feels connected with others/family/visitors/staff [] Distress [] Loneliness/isolation [] Abandonment Spirituality of Patient [x] Person of Viry [] Attends Baptism of their Viry [x] Believes in Prayer [x] Reads Bible or Catholic materials [] There are Spiritual issues to be addressed Wood Cabinetmaker Interventions [x] Prayer [x] Active listening [x] Non-anxious presence [x] Spiritual/emotional support [] Crisis/trauma care [] Spiritual counseling [] Bereavement support [] Provided bereavement packet [] Provided Bible/devotional materials [] Provided toy/stuffed animal, coloring book to patient or family member [] Provided Communion [] Anointing/Searcy [] Salvation [x] Completed spiritual assessment [] Other: Impact on Illness or Injury [] Angry [] Fearful [] Anxious [] Often cries [] Exhaustion [] Unable to work [] Unable to attend nondenominational [] Unable to walk/stand [] Unable to read [] Unable to drive [] Unable to eat/drink [] Unable to sleep [] Unable to be with family [] Patient intubated [] Other: Summary Time spent with patient 1`0 min
[2023-01-08] MEDS: warfarin 5 mg Tablet PO (13:23)
--- NOTE | 2023-01-08 16:06 | PM.PN ---
Subjective Subjective: This morning she reported she is doing well. Left upper and lower extremities still weak, but strength gradually improving. She is able to lift her left arm slightly better. Still does not have the strength or dexterity in it that she used to. She is trying to walk with therapy. Vitals/I&O/Wt Last Vital Signs Temp 98.3 F 01/08/23 15:46 Pulse 99 01/08/23 15:46 Resp 17 01/08/23 15:46 BP 128/75 01/08/23 15:46 Pulse Ox 97 01/08/23 15:46 O2 Del Method 01/08/23 15:46 FiO2 21 01/05/23 00:15 01/08/23 01/08/23 01/08/23 06:59 14:59 22:59 Intake Total 120 / 720 480 / 480 Balance 120 / 720 480 / 480 Weight last 48 hrs Weight 95.736 kg Physical Exam Narrative: Accompanied by and son at bedside. Const: COMMON NORMALS: patient oriented x3 and alert GENERAL APPEARANCE: cooperative ORIENTATION/CONSCIOUSNESS: Yes awake HENMT: COMMON NORMALS: oropharynx normal Neck/C-Spine: COMMON NORMALS: no meningeal signs and no JVD Resp: COMMON NORMALS: normal respiratory effort and clear to auscultation bilaterally AUSCULTATION: clear to auscultation bilaterally Cardio: COMMON NORMALS: no JVD, regular rhythm, S1 normal heart sound present, S2 normal heart sound present and No murmurs present (Cardio) RHYTHM: regular rhythm HEART SOUNDS: S1 normal heart sound present and S2 normal heart sound present GI: COMMON NORMALS: Normal to inspection, nondistended, normoactive bowel sounds present, Soft to palpation and non-tender PALPATION: Yes Soft to palpation Extremity: COMMON NORMALS: no joint enlargement and no pedal edema Neuro: COMMON NORMALS: patient oriented x3 and moves all extremities SENSORIUM/ORIENTATION: Yes alert MENINGEAL SIGNS: Yes no meningeal signs SPEECH: abnormal speech and expressive aphasia (Mild) SENSORY EXAM: Yes sensory level loss detected (Left-sided facial. Left upper and lower, chronic, unchanged.) MOTOR EXAM: Pronator motor function not present (On the right upper and lower.), Pronator motor function present (LUE drops but does not hit the bed.) pronator drift of left upper extremity and Other motor observations present (Drift left lower extremity.) Skin: COMMON NORMALS: no rashes or lesions noted GENERAL SKIN EXAM: no rashes or lesions noted Data 01/08/23 06:53 01/08/23 06:53 A&P Assessment and plan (1) CVA (cerebral vascular accident): INR result reviewed, 2.01. Stop any additional Lovenox. Follow-up INR requested for tomorrow as she is also having bright red blood per rectum today. Reviewed results of MRI, multifocal CVA, discussed with radiology, embolic or watershed infarct suspected, likely secondary to atrial fibrillation. Blood pressure is doing better on review of vitals. Continue metoprolol 25 twice daily. Norvasc 10 mg once daily monitor blood pressures. Neurochecks. Requires close monitoring due to risk of severe bleeding with need for anticoagulation, with bright red blood per rectum, with recent hemorrhoid surgery. MRI of the brain ordered No increased statin to high intensity. Currently on clear liquids, speech therapy evaluating, advance as per recommendations PT, OT, ST. Case management. Will Follow-up with neurology after discharge. Prior hospitalist notes reviewed. (2) BRBPR (bright red blood per rectum): Later in the morning moderate amount of blood in commode and pull-up. Requested with nursing staff to notify me of further bleeding. Discussed that we are holding any further Lovenox. Warfarin has reached therapeutic INR. Discussed we will recheck hemoglobin tonight. (3) Antiphospholipid syndrome: Continue anticoagulation, she normally takes warfarin, goal INR 2-3. She has an INR machine at home. Pharmacy for Coumadin dosing, monitor INR. Discontinue Lovenox. (4) S/P hemorrhoidectomy: Continue stool softener. Monitor for bleeding with resumption of anticoagulation. She has had some minimal spotting. (5) Intracranial carotid stenosis: Continue optimization of cardiovascular risk factors. Currently permissive hypertension, long-term would benefit from transition of hypertension. (6) Left arm weakness: Plan Confirmed her medications with her and her son. Atrial fibrillation: Anticoagulation as above. Currently in sinus rhythm. Attestations Medical Necessity Statement*: Continue admission for cyst management of acute bleeding following hemorrhoidectomy surgery on anticoagulation due to CVA with atrial fibrillation, antiphospholipid syndrome, and lady at risk of disabling or life-threatening bleeding or clotting. Diagnoses CVA (cerebral vascular accident) I63.9 BRBPR (bright red blood per rectum) K62.5 Antiphospholipid syndrome D68.61 S/P hemorrhoidectomy Z98.890; Z87.19 Intracranial carotid stenosis I65.29 Left arm weakness R29.898
[2023-01-08 16:38] LABS: Glucose Point of Care 127 mg/dL (70-110)
[2023-01-08 18:03] LABS: SARS Covid-2 Antigen negative (Negative)
[2023-01-08] MEDS: ropinirole 0.25 mg Tablet 0.5 MG PO (19:40)
[2023-01-08] MEDS: ALPRAZolam 0.5 mg Tablet PO (19:40)
[2023-01-08] MEDS: duloxetine 20 mg Capsule PO (19:41)
[2023-01-08] MEDS: atorvastatin 40 mg Tablet PO (19:41)
--- NOTE | 2023-01-08 21:56 | PC.NURSE ---
Patient had large amount of red blood in bedside commode (300 ml) with large clots. Dr. Horton notified. Blood pressure 127/87 and heart rate 89. Every 4 hour H & H ordered.
[2023-01-08 22:42] LABS: Hematocrit 37.3 % (37.0-47.0); Hemoglobin 12.2 g/dL (11.5-15.3)
[2023-01-08] MEDS: oxyCODONE 5 mg IR Tab/Cap PO (23:02)
[2023-01-09] VITALS (10 sets, daily range): BP systolic 114–132; BP diastolic 66–92; PULSE 67–111; RESP 16–18; TEMP 36.4–37.2; O2SAT 93–97
[2023-01-09] MEDS: acetaminophen 325 mg Tablet 650 MG PO ×4 (01:52→23:34)
[2023-01-09 02:06] LABS: Basophils % 0.3 %; Eosinophils # 0.1 10^3/uL (0.0-0.8); Hematocrit 37.6 % (37.0-47.0); Lymphocytes % 16.8 %; Mean Corpuscular HGB Conc 31.9 g/dL (30.0-36.0); Mean Corpuscular Hemoglobin 28.8 pg (28.0-34.0); Mean Corpuscular Volume 90.2 fl (81-99); Mean Platelet Volume 11.2 fL (7.4-10.4); Monocytes # 1.5 10^3/uL (0.2-0.9); Monocytes % 13.1 %; Neutrophils # 8.03 10^3/uL (1.8-7.7); Neutrophils % 68.4 %; Nucleated Red Blood Cells % 0 %; Platelet Count 321 10^3/cmm (130-400); Red Blood Count 4.17 10^6/uL (4.1-5.3); Red Cell Distribution Width 12.5 % (12.1-15.1); White Blood Count 11.7 10^3/uL (4.0-10.0)
[2023-01-09 02:19] LABS: INR 2.15 (0.8-1.2)
[2023-01-09] MEDS: oxyCODONE 5 mg IR Tab/Cap PO (05:43)
[2023-01-09 06:19] LABS: Hematocrit 41.1 % (37.0-47.0)
[2023-01-09 06:33] LABS: Glucose Point of Care 134 mg/dL (70-110)
--- NOTE | 2023-01-09 08:40 | PC.SOCIAL ---
IMM update IMM updated with patient. Verbalized an understanding. Copy Pg 2 provided. Initialled, dated, timed, and placed in chart.
[2023-01-09] MEDS: amlodipine 10 mg Tablet PO (09:42)
[2023-01-09] MEDS: docusate sodium 100 mg Capsule PO ×2 (09:42→17:39)
[2023-01-09] MEDS: metoprolol tartrate 25 mg Tablet PO ×2 (09:43→21:39)
[2023-01-09] MEDS: aspirin 81 mg EC Tablet PO (09:44)
[2023-01-09 10:07] LABS: Hemoglobin 11.6 g/dL (11.5-15.3)
[2023-01-09] MEDS: warfarin 5 mg Tablet PO (14:06)
[2023-01-09 14:25] LABS: Hematocrit 34.7 % (37.0-47.0); Hemoglobin 11.3 g/dL (11.5-15.3)
--- NOTE | 2023-01-09 17:32 | P.CONIM_ITS ---
Providers/Reason For Consult Consulting Physician/Specialty*: Dr. Drake Larose, DO/General surgery Reason for Consult*: Postop hemorrhoidectomy bleeding in the setting of anticoagulation Attending Physician: Adama Montez Primary Care Provider: Missy Santana MD History of Present Illness History of Present Illness Nai Mancilla is a 62 year old female presented to the hospital with an acute stroke. She had a hemorrhoidectomy a week ago at an outside hospital and was taken off of her warfarin for the surgery. She restarted her warfarin postoperatively but unfortunately had a stroke. She is requiring anticoagulation to treat the stroke and has started having hematochezia related to her recent hemorrhoidectomy. Patient reports pain at the anus related to her hemorrhoidectomy. She has no other complaints at this time. Review of Systems General: Reports: 10 or more systems reviewed and unremarkable except in HPI and below Medications/Allergies Home Medications Medication Instructions Recorded Confirmed Last Taken Type duloxetine 20 mg capsule,delayed 20 mg PO DAILY@21 05/20/20 01/04/23 01/03/23 History release (Cymbalta) simvastatin 10 mg tablet (Zocor) 10 mg PO QPM 05/20/20 01/04/23 01/03/23 History alprazolam 0.5 mg tablet 0.5 mg PO Q6H PRN Anxiety 11/17/20 01/04/23 01/03/23 Hi story pseudoephedrine HCl 30 mg tablet 30 mg PO Q6H PRN Nasal Congestion 11/17/20 01/04/23 11/17/20 History (Sudogest) aspirin 81 mg tablet,delayed 81 mg PO DAILY #30 tabs 11/19/20 01/04/23 01/03/23 Rx release hydrocodone 7.5 mg-acetaminophen 1 tab PO BID PRN Pain 01/04/23 01/04/23 Unknown History 325 mg tablet oxycodone 5 mg tablet 5 mg PO Q6H PRN Pain 01/04/23 01/04/23 Unknown History ropinirole 0.25 mg tablet 0.5 mg PO BEDTIME 01/04/23 01/04/23 01/03/23 History warfarin 5 mg tablet See Rx Instructions .Route .COMPLEX 01/04/23 01/04/23 01/03/23 History Allergies Allergy/AdvReac Type Severity Reaction Status Date / Time aspirin [From Percodan] Allergy ADR-Halluci Verified 01/04/23 14:47 nating oxycodone [From Percodan] Allergy ADR-Halluci Verified 01/04/23 14:47 nating Current Medications Generic Name Dose Route Start Last Admin Trade Name Freq PRN Reason Stop Dose Admin Acetaminophen 650 mg 01/04/23 20:47 01/09/23 09:42 Acetaminophen 325 Mg Tablet PO 650 mg Q6H PRN Administration Mild/Mod Pain Or Temp >/= 101 Alprazolam 0.5 mg 01/04/23 20:47 01/08/23 19:40 Alprazolam 0.5 Mg Tablet PO 0.5 mg Q6H PRN Administration Anxiety Amlodipine Besylate 10 mg 01/07/23 09:15 01/09/23 09:42 Amlodipine 10 Mg Tablet PO 10 mg DAILY MICHAEL Administration Aspirin 81 mg 01/05/23 09:00 01/09/23 09:44 Aspirin 81 Mg Ec Tablet PO 81 mg DAILY MICHAEL Administration Atorvastatin Calcium 40 mg 01/04/23 21:00 01/08/23 19:41 Atorvastatin 40 Mg Tablet PO 40 mg BEDTIME MICHAEL Administration Docusate Sodium 100 mg 01/05/23 09:00 01/09/23 09:42 Docusate Sodium 100 Mg Capsule PO 100 mg BID MICHAEL Administration Duloxetine HCl 20 mg 01/04/23 21:00 01/08/23 19:41 Duloxetine 20 Mg Capsule PO 20 mg DAILY@21 MICHAEL Administration Metoprolol Tartrate 25 mg 01/06/23 09:00 01/09/23 09:43 Metoprolol Tartrate 25 Mg Tablet PO 25 mg BID@0900,2100 MICHAEL Administration Oxycodone HCl 5 mg 01/04/23 20:47 01/09/23 05:43 Oxycodone 5 Mg Ir Tab/Cap PO 5 mg Q6H PRN Administration Pain Polyethylene Glycol 17 gm 01/05/23 14:20 01/09/23 09:49 Polyethylene Glycol 3350 Pkt 17 Gm PO Not Given DAILY MICHAEL Ropinirole HCl 0.5 mg 01/04/23 21:00 01/08/23 19:40 Ropinirole 0.25 Mg Tablet PO 0.5 mg BEDTIME MICHAEL Administration Warfarin Sodium 5 mg 01/06/23 14:00 01/09/23 14:06 Warfarin 5 Mg Tablet PO 5 mg 1400 MICHAEL Administration PFSH Acute PFSH: Medical History Antiphospholipid syndrome Atrial fibrillation Left acute arterial ischemic stroke, MCA (middle cerebral artery) Transient cerebral ischemia Social History Smoking and tobacco status: never smoked Alcohol intake: never Vitals/I&O/Wt Last Vital Signs Temp 97.8 F 01/09/23 16:00 Pulse 67 01/09/23 16:00 Resp 16 01/09/23 16:00 BP 124/79 01/09/23 16:00 Pulse Ox 97 01/09/23 16:00 O2 Del Method 01/09/23 07:24 FiO2 21 01/09/23 07:50 01/09/23 01/09/23 01/09/23 06:59 14:59 22:59 Output Total 400 / 700 300 / 300 Balance -400 / -20 -300 / -300 Weight last 48 hrs Weight 217 lb 11.2 oz Weight 211 lb 1 oz Physical Exam Narrative: General : Patient is well developed , no acute distress, oriented x3 Head : Normal cephalic, a-traumatic. Ears : Pinnae and external canal are normal. Hearing is normal. Eyes : PERRLA, Sclera and injection are normal. No conjunctival discharge. Nose : Mucous membranes are without erythema. Throat : buccal mucosa is normal, gums are without significant recession or hypertrophy. Lungs : Equal chest rise bilaterally, no use of accessory muscles, trachea is midline. Cor : Rate and rhythm are normal. Abdomen : Soft, ND, NT, no g/r/m Rectal: There is active slow red oozing from her anus Extremities : No edema, no cyanosis or clubbing, dorsalis pedis pulses are present bilaterally, non-tender to palpation of calves. Upper extremities are normal bilaterally. Back : non-tender to palpation, no CVA tenderness. Neuro : CN II - XII intact, Upper and lower extremities have equal and full strength Data 01/09/23 14:08 01/08/23 06:53 A&P Assessment and plan (1) BRBPR (bright red blood per rectum): (2) CVA (cerebral vascular accident): (3) S/P hemorrhoidectomy: Plan Continue anticoagulation Gelfoam soaked in thrombin was placed into the anus and then covered by gauze and an ABD Hopefully this will stop her bleeding. Gelfoam and dressing will come off with her first bowel movement. No further acute surgical intervention Medical management per primary Coding Level of Care Code Acute Code for Chg Fwd Diagnoses BRBPR (bright red blood per rectum) K62.5 CVA (cerebral vascular accident) I63.9 S/P hemorrhoidectomy Z98.890; Z87.19
[2023-01-09 19:09] LABS: Hematocrit 32.3 % (37.0-47.0); Hemoglobin 10.6 g/dL (11.5-15.3)
--- NOTE | 2023-01-09 20:33 | P.PN_ITS ---
Subjective Subjective: Denies abdominal pain. Had small mount of diarrhea yesterday. Blood found in commode afternoon, large amount in the evening. Vitals/I&O/Wt Last Vital Signs Temp 97.8 F 01/09/23 16:00 Pulse 67 01/09/23 16:00 Resp 16 01/09/23 16:00 BP 124/79 01/09/23 16:00 Pulse Ox 97 01/09/23 16:00 O2 Del Method 01/09/23 07:24 FiO2 21 01/09/23 07:50 01/09/23 01/09/23 01/09/23 06:59 14:59 22:59 Output Total 400 / 700 300 / 300 Balance -400 / -20 -300 / -300 Weight last 48 hrs Weight 98.747 kg Weight 95.736 kg Physical Exam Narrative: Accompanied by and son at bedside. Const: COMMON NORMALS: patient oriented x3 and alert GENERAL APPEARANCE: cooperative ORIENTATION/CONSCIOUSNESS: Yes awake HENMT: COMMON NORMALS: oropharynx normal Neck/C-Spine: COMMON NORMALS: no meningeal signs and no JVD Resp: COMMON NORMALS: normal respiratory effort and clear to auscultation bilaterally AUSCULTATION: clear to auscultation bilaterally Cardio: COMMON NORMALS: no JVD, regular rhythm, S1 normal heart sound present, S2 normal heart sound present and No murmurs present (Cardio) RHYTHM: regular rhythm HEART SOUNDS: S1 normal heart sound present and S2 normal heart sound present GI: COMMON NORMALS: Normal to inspection, nondistended, normoactive bowel sounds present, Soft to palpation and non-tender PALPATION: Yes Soft to palpation Extremity: COMMON NORMALS: no joint enlargement and no pedal edema Neuro: COMMON NORMALS: patient oriented x3 and moves all extremities SENSORIUM/ORIENTATION: Yes alert MENINGEAL SIGNS: Yes no meningeal signs COORDINATION/BALANCE: [id number]-[id number] test normal (On the right), cvzu-[id number] test normal (On the right) and other (Minimal difficulty with rspg-oh-yfat on the left.) SPEECH: abnormal speech and expressive aphasia (Mild) SENSORY EXAM: Yes sensory level loss detected (Left-sided facial. Left upper and lower, chronic, unchanged.) MOTOR EXAM: Pronator motor function not present (On the right upper and lower.), Pronator motor function present (LUE drops but does not hit the bed.) pronator drift of left upper extremity and Other motor obs ervations present (Drift left lower extremity.) COORDINATION: [id number]-[id number] test normal (On the right), hals-ma-vfhx test normal (On the right) and other (Minimal difficulty with hizw-xc-uuye on the left.) Skin: COMMON NORMALS: no rashes or lesions noted GENERAL SKIN EXAM: no rashes or lesions noted Data 01/09/23 18:40 01/08/23 06:53 A&P Assessment and plan (1) BRBPR (bright red blood per rectum): Additional hematochezia noted last night per review of nursing notes. Report is much as 300 mL in the commode. Discussed with surgery, consultation requested. Gelfoam soaked in thrombin placed in anus. Hemoglobin reviewed this evening down to 10.6. Reassessment blood count requested for the morning. She is very wary of discontinuing warfarin especially in setting of finding of prior strokes on MRI she is very concerned about additional CVA. Follow-up INR. Surgery documentation appreciated. (2) CVA (cerebral vascular accident): Repeat INR. Switch over to her usual warfarin schedule. Follow-up INR requested for tomorrow as she is also having bright red blood per rectum today. Reviewed results of MRI, multifocal CVA, discussed with radiology, embolic or watershed infarct suspected, likely secondary to atrial fibrillation. Blood pressure soft, systolic 114. Decrease amlodipine to 5 mg. Continue to m onitor blood pressures. MRI results appreciated. Discussed with her. Continue statin. Currently on clear liquids, speech therapy evaluating, advance as per recommendations PT, OT, ST. Case management. Will Follow-up with neurology after discharge. Prior hospitalist notes reviewed. (3) Antiphospholipid syndrome: Continue anticoagulation, she normally takes warfarin, goal INR 2-3. She has an INR machine at home. Pharmacy for Coumadin dosing, monitor INR. Discontinue Lovenox. (4) S/P hemorrhoidectomy: Continue stool softener. Monitor for bleeding with resumption of anticoagulation. She has had some minimal spotting. (5) Intracranial carotid stenosis: Continue optimization of cardiovascular risk factors. Currently permissive hypertension, long-term would benefit from transition of hypertension. (6) Left arm weakness: Plan Confirmed her medications with her and her son. Atrial fibrillation: Anticoagulation as above. Currently in sinus rhythm. Attestations Medical Necessity Statement*: Continue admission for assessment management following CVA, reinitiation of anticoagulation with atrial fibrillation, antiphospholipid syndrome, acute bleeding following hemorrhoidectomy with acute anemia, requiring close monitoring due to risk of deterioration. Diagnoses BRBPR (bright red blood per rectum) K62.5 CVA (cerebral vascular accident) I63.9 Antiphospholipid syndrome D68.61 S/P hemorrhoidectomy Z98.890; Z87.19 Intracranial carotid stenosis I65.29 Left arm weakness R29.898
[2023-01-09] MEDS: ALPRAZolam 0.5 mg Tablet PO (21:39)
[2023-01-09] MEDS: ropinirole 0.25 mg Tablet 0.5 MG PO (21:39)
[2023-01-09] MEDS: atorvastatin 40 mg Tablet PO (21:39)
[2023-01-09] MEDS: duloxetine 20 mg Capsule PO (21:39)
[2023-01-10] VITALS (14 sets, daily range): BP systolic 99–146; BP diastolic 66–82; PULSE 80–119; RESP 15–20; TEMP 36.4–36.9; O2SAT 94–97
--- NOTE | 2023-01-10 01:18 | PC.NURSE ---
Three phlebotomists attempt blood draw for H & H with all unsuccessful. wastewater treatment plant supervisor started IV US on patient, but took several attempts. IV now in place to draw blood from.
[2023-01-10 01:40] LABS: Basophils % 0.3 %; Eosinophils # 0.3 10^3/uL (0.0-0.8); Eosinophils % 3.3 %; Hematocrit 29.4 % (37.0-47.0); Hemoglobin 9.6 g/dL (11.5-15.3); Lymphocytes % 23.2 %; Mean Corpuscular HGB Conc 32.7 g/dL (30.0-36.0); Mean Corpuscular Hemoglobin 28.7 pg (28.0-34.0); Mean Platelet Volume 11.3 fL (7.4-10.4); Monocytes % 11.3 %; Neutrophils # 5.27 10^3/uL (1.8-7.7); Neutrophils % 61.3 %; Nucleated Red Blood Cells % 0 %; Platelet Count 277 10^3/cmm (130-400); Red Blood Count 3.34 10^6/uL (4.1-5.3); Red Cell Distribution Width 12.3 % (12.1-15.1); White Blood Count 8.6 10^3/uL (4.0-10.0)
[2023-01-10 01:52] LABS: INR 2.33 (0.8-1.2)
--- NOTE | 2023-01-10 05:04 | PC.NURSE ---
Approximately 2100 last night, bleeding on patient's brief approximately the length and width of a finger. Approximately 0500 this morning, patient had small spots of blood on gown and on linens. Guaze in brief saturated. What appeared to be the sponge was in brief. Patient had not been up to commode and had not voided or had a bowel movement between time sponge was placed by physician and the time what appears to be the sponge was found in brief.
--- NOTE | 2023-01-10 05:09 | PC.NURSE ---
Patient hadn't urinated all night. Bladder scan showed 526 ml. Had her get up to commode to try to pee and she voided 125 ml. Post-void bladder scan showed [address] Horton notified. Nicole ordered.
[2023-01-10] MEDS: acetaminophen 325 mg Tablet 650 MG PO ×2 (05:55→14:26)
[2023-01-10 06:08] LABS: Hematocrit 28.9 % (37.0-47.0); Hemoglobin 9.6 g/dL (11.5-15.3)
[2023-01-10] MEDS: aspirin 81 mg EC Tablet PO (08:34)
[2023-01-10] MEDS: metoprolol tartrate 25 mg Tablet PO ×2 (08:34→21:19)
[2023-01-10] MEDS: docusate sodium 100 mg Capsule PO ×2 (08:34→17:27)
[2023-01-10] MEDS: amlodipine 10 mg Tablet 5 MG PO (08:35)
[2023-01-10 10:06] LABS: Hematocrit 32.9 % (37.0-47.0)
[2023-01-10 14:12] LABS: Hematocrit 27.6 % (37.0-47.0)
--- NOTE | 2023-01-10 15:31 | PM.PN ---
Subjective Subjective: Patient seen and examined. She continues to have bleeding from her rectum status post hemorrhoidectomy at an outside facility Vitals/I&O/Wt Last Vital Signs Temp 98.3 F 01/11/23 03:50 Pulse 110 H 01/11/23 06:00 Resp 18 01/11/23 03:50 BP 117/81 01/11/23 03:50 Pulse Ox 93 01/11/23 03:50 O2 Del Method 01/11/23 03:50 FiO2 21 01/10/23 01:00 01/10/23 01/10/23 01/11/23 14:59 22:59 06:59 Intake Total 120 / 120 Balance 120 / 120 Weight last 48 hrs Weight 211 lb 11.2 oz Physical Exam Narrative: General : Patient is well developed , no acute distress, oriented x3 Head : Normal cephalic, a-traumatic. Ears : Pinnae and external canal are normal. Hearing is normal. Eyes : PERRLA, Sclera and injection are normal. No conjunctival discharge. Nose : Mucous membranes are without erythema. Throat : buccal mucosa is normal, gums are without significant recession or hypertrophy. Lungs : Equal chest rise bilaterally, no use of accessory muscles, trachea is midline. Cor : Rate and rhythm are normal. Abdomen : Soft, ND, NT, no g/r/m Rectal: There is active slow red oozing from her anus Extremities : No edema, no cyanosis or clubbing, dorsalis pedis pulses are present bilaterally, non-tender to palpation of calves. Upper extremities are normal bilaterally. Back : non-tender to palpation, no CVA tenderness. Neuro : CN II - XII intact, Upper and lower extremities have equal and full strength Urinary Catheter Management: Nicole: Cath Placed During This Visit: yes Reason for Continuing Indwelling Catheter: Acute Urinary Retention or Obstruction Urinary Catheter Date of Insertion: 01/10/23 Urinary Catheter Time of Insertion: 05:30 Data 01/11/23 02:12 01/08/23 06:53 A&P Assessment and plan (1) BRBPR (bright red blood per rectum): (2) CVA (cerebral vascular accident): (3) S/P hemorrhoidectomy: Plan Continue anticoagulation Gelfoam soaked in thrombin was again placed into the anus and then covered by gauze and an ABD Hopefully this will stop her bleeding. Gelfoam and dressing will come off with her first bowel movement. Medical management per primary Attestations Medical Necessity Statement*: Per primary Coding Level of Care Code Acute Code for Chg Fwd Diagnoses BRBPR (bright red blood per rectum) K62.5 CVA (cerebral vascular accident) I63.9 S/P hemorrhoidectomy Z98.890; Z87.19
--- NOTE | 2023-01-10 15:37 | PC.OT ---
OT TREATMENT ATTEMPTED IN A.M. AND P.M. PATIENT REPORTS SHE WOULD LIKE TO REST TODAY ON BOTH OCCASIONS. WILL ATTEMPT AGAIN TOMORROW.
[2023-01-10] MEDS: thrombin 5,000 unit SDV 5000 UNIT XX (16:02)
--- NOTE | 2023-01-10 16:05 | PC.NURSE ---
1600 Dr. Larose came to OR to get gelfoam and thrombin for patient to be placed in rectal wound.Large Gelfoam Lot # [id number] expiration date 03/27/26 mixed with thrombin 5000 units lot# [id number] exp. 12/26/[address] Larose
[2023-01-10] MEDS: HYDROmorphone 1 mg/mL INJ 1 mL IVP (16:47)
[2023-01-10 17:49] LABS: Hematocrit 28.4 % (37.0-47.0); Hemoglobin 9.3 g/dL (11.5-15.3)
--- NOTE | 2023-01-10 19:19 | P.PN_ITS ---
Subjective Subjective: Some additional blood found in brief this morning, sponge found dislodged. Bothered by anal pain. She states otherwise had some trouble with IV and wanted to be placed and had some difficulty with blood draw. Vitals/I&O/Wt Last Vital Signs Temp 97.5 F L 01/10/23 11:22 Pulse 90 01/10/23 14:00 Resp 18 01/10/23 17:46 BP 99/70 01/10/23 11:22 Pulse Ox 96 01/10/23 11:22 O2 Del Method 01/10/23 11:22 FiO2 21 01/10/23 01:00 01/10/23 01/10/23 01/10/23 06:59 14:59 22:59 Intake Total 120 / 120 Output Total 525 / 825 Balance -525 / -825 120 / 120 Weight last 48 hrs Weight 96.026 kg Weight 98.747 kg Physical Exam Narrative: Accompanied by and son at bedside. Const: COMMON NORMALS: patient oriented x3 and alert GENERAL APPEARANCE: cooperative ORIENTATION/CONSCIOUSNESS: Yes awake HENMT: COMMON NORMALS: oropharynx normal Neck/C-Spine: COMMON NORMALS: no meningeal signs and no JVD Resp: COMMON NORMALS: normal respiratory effort and clear to auscultation bilaterally AUSCULTATION: clear to auscultation bilaterally Cardio: COMMON NORMALS: no JVD, regular rhythm, S1 normal heart sound present, S2 normal heart sound present and No murmurs present (Cardio) RHYTHM: regular rhythm HEART SOUNDS: S1 normal heart sound present and S2 normal heart sound present GI: COMMON NORMALS: Normal to inspection, nondistended, normoactive bowel sounds present, Soft to palpation and non-tender PALPATION: Yes Soft to palpation Extremity: COMMON NORMALS: no joint enlargement and no pedal edema Neuro: COMMON NORMALS: patient oriented x3 and moves all extremities SENSORIUM/ORIENTATION: Yes alert MENINGEAL SIGNS: Yes no meningeal signs SPEECH: abnormal speech and expressive aphasia (Mild) MOTOR EXAM: Pronator motor function present (LUE drops but does not hit the bed.) pronator drift of left upper extremity Skin: COMMON NORMALS: no rashes or lesions noted GENERAL SKIN EXAM: no rashes or lesions noted Urinary Catheter Management: Nicole: Cath Placed During This Visit: yes Reason for Continuing Indwelling Catheter: Acute Urinary Retention or Obstruction Urinary Catheter Date of Insertion: 01/10/23 Urinary Catheter Time of Insertion: 05:30 Data 01/10/23 17:33 01/08/23 06:53 A&P Assessment and plan (1) BRBPR (bright red blood per rectum): Additional BRBPR, although smaller amount than yesterday. Still having bleeding. Thrombin-soaked sponge dislodged overnight. Having anal pain. Discussed again with surgery. Appreciate further assessment. Additional sponge replaced for local bleeding control. Risk of further bleeding severe bleeding in the setting of therapeutic anticoagulation which is necessary due to recurrence of CVA with atrial fibrillation and APS. Requires close monitoring of INR, blood counts while on anticoagulation. INR reviewed, 2.33. She was resumed on usual dose of warfarin 5 mg MWF, 2.5 mg STTS. Follow-up INR requested. Follow-up blood counts requested. She is very wary of discontinuing warfarin especially in setting of finding of prior strokes on MRI she is very concerned about additional CVA. (2) CVA (cerebral vascular accident): Continue warfarin. Repeat INR, blood counts requested. Reviewed results of MRI, multifocal CVA, discussed with radiology, embolic or watershed infarct suspected, likely secondary to atrial fibrillation. Blood pressure soft, systolic variable, but some values again soft, as low as 99/70 this afternoon. Hold amlodipine. Continue to monitor blood pressures. Continue statin. Currently on clear liquids, speech therapy evaluating, advance as per recomm endations PT, OT, ST. Case management, arrangements for rehabilitation. Follow-up with neurology after discharge. (3) Antiphospholipid syndrome: Continue anticoagulation, she normally takes warfarin, goal INR 2-3. She has an INR machine at home. Pharmacy for Coumadin dosing, monitor INR. Discontinue Lovenox. (4) S/P hemorrhoidectomy: With BRBPR as above. Continue stool softener. (5) Intracranial carotid stenosis: Continue optimization of cardiovascular risk factors. Currently permissive hypertension, long-term would benefit from transition of hypertension. (6) Left arm weakness: Plan Acute blood loss anemia: Hemoglobin down to 9.3. Anal bleeding after hemorrhoidectomy while on anticoagulation as above. Requires close monitoring. Atrial fibrillation: Anticoagulation as above. Attestations Medical Necessity Statement*: Continue admission for assessment management of anal bleeding after hemorrhoidectomy, chronic therapeutic anticoagulation with CVA with atrial fibrillation, APS, at risk of life-threatening deterioration with worsening bleeding, versus additional CVA Diagnoses BRBPR (bright red blood per rectum) K62.5 CVA (cerebral vascular accident) I63.9 Antiphospholipid syndrome D68.61 S/P hemorrhoidectomy Z98.890; Z87.19 Intracranial carotid stenosis I65.29 Left arm weakness R29.898
[2023-01-10] MEDS: ropinirole 0.25 mg Tablet 0.5 MG PO (21:19)
[2023-01-10] MEDS: atorvastatin 40 mg Tablet PO (21:19)
[2023-01-10] MEDS: duloxetine 20 mg Capsule PO (21:19)
[2023-01-10] MEDS: ALPRAZolam 0.5 mg Tablet PO (21:19)
[2023-01-10] MEDS: warfarin 2 mg Tablet PO (21:19)
[2023-01-10 21:57] LABS: Hematocrit 27.2 % (37.0-47.0)
[2023-01-11] VITALS (9 sets, daily range): BP systolic 116–127; BP diastolic 71–94; PULSE 93–110; RESP 16–18; TEMP 36.8–37.4; O2SAT 93–98; BMI 37.8
[2023-01-11 02:19] LABS: Basophils % 0.3 %; Eosinophils # 0.2 10^3/uL (0.0-0.8); Hematocrit 26.8 % (37.0-47.0); Hemoglobin 8.6 g/dL (11.5-15.3); Lymphocytes # 1.8 10^3/uL (0.8-4.8); Mean Corpuscular HGB Conc 32.1 g/dL (30.0-36.0); Mean Corpuscular Hemoglobin 28.5 pg (28.0-34.0); Mean Corpuscular Volume 88.7 fl (81-99); Mean Platelet Volume 11.1 fL (7.4-10.4); Monocytes # 1.2 10^3/uL (0.2-0.9); Monocytes % 12.6 %; Neutrophils # 6.16 10^3/uL (1.8-7.7); Neutrophils % 65.8 %; Nucleated Red Blood Cells % 0 %; Platelet Count 323 10^3/cmm (130-400); Red Blood Count 3.02 10^6/uL (4.1-5.3); Red Cell Distribution Width 12.2 % (12.1-15.1); White Blood Count 9.4 10^3/uL (4.0-10.0)
[2023-01-11 02:42] LABS: INR 2.45 (0.8-1.2)
[2023-01-11 03:15] LABS: Charge for UA Resulting for Rev
[2023-01-11 03:48] LABS: Bilirubin Urine 1+ (Negative); Ketones Urine 1+ (Negative); Specific Gravity, Urine 1.025 (1.005-1.030); Urine Appearance Clear (CLEAR); Urine Color Yellow (Yellow); Urobilinogen Urine 1 mg/dL (Negative); pH Urine 5 (5-7)
[2023-01-11 03:49] LABS: Add Urine Microscopic? YES; Leukocyte Esterase Urine 1+ (Negative)
[2023-01-11 03:54] LABS: Add Urine Culture? Yes; Bacteria Urine 1+ /hpf; Squamous Epithelial Cell Urine 0-4 /hpf (0-5)
[2023-01-11 06:27] LABS: Hematocrit 27.5 % (37.0-47.0); Hemoglobin 8.8 g/dL (11.5-15.3)
--- NOTE | 2023-01-11 08:55 | PC.SOCIAL ---
IMM update IMM updated with patient. Verbalized an understanding. Copy PG 2 provided. Initialled, dated, timed, and placed in chart.
[2023-01-11] MEDS: polyethylene glycol 3350 Pkt 17 gm PO (09:59)
[2023-01-11] MEDS: metoprolol tartrate 25 mg Tablet PO (09:59)
[2023-01-11] MEDS: aspirin 81 mg EC Tablet PO (09:59)
[2023-01-11] MEDS: docusate sodium 100 mg Capsule PO (10:00)
[2023-01-11 10:10] LABS: Hematocrit 27.4 % (37.0-47.0); Hemoglobin 8.9 g/dL (11.5-15.3)
[2023-01-11] MEDS: warfarin 2.5 mg Tablet PO (15:31)
--- NOTE | 2023-01-11 15:42 | P.DS_ITS ---
Discharge Providers Date of Admission: 01/04/23 17:42 Date of Discharge: January 11, 2023 Attending Provider at Admission: Adama Montez Attending Provider at Discharge: Adama Montez Primary Care Provider: Missy Santana MD Diagnoses at Discharge Discharge Diagnosis (1) BRBPR (bright red blood per rectum): Status: Acute (2) CVA (cerebral vascular accident): Status: Acute (3) S/P hemorrhoidectomy: Status: Acute Reason for Visit Reason for Visit: Possible stroke Brief History: Pleasant 62-year-old lady with remote history of right MCA CVA, APS, A-fib chronically on anticoagulation with warfarin target INR 2-3 underwent hemorrhoidectomy earlier this week, discontinued her warfarin, was bridged with Lovenox before the surgery.? She states she resumed warfarin and aspirin after surgery as per instructions. She has chronic residual left-sided facial droop, as well as chronic residual sensory deficits on the left.? She presented to ER for evaluation due to waking up with left-sided weakness both upper and lower, worse in upper extremity.? She did not notice any worsening in sensation.? She had difficulty ambulating with weakness in the left lower extremity.? Last known normal was last night.? In ER she was assessed for acute CVA.? No bleeding noted on CT head with visualized old large right MCA CVA with encephalomalacia.? She was outside the window for tPA.? CT angiogram head and neck was obtained without any large thrombosis, with noted 60% left-sided ICA stenosis. During her stay in ER she has been showing improvement in her symptoms.? She is able to start closing her left hand and is able to lift the left arm, with persistent weakness and drift but much better than this morning. Hospital Course Hospital Course She was started on anticoagulation with heparin drip bridging to therapeutic warfarin. Was resumed initially on 7 mg of warfarin with follow-up INR. Subsequently dose changed to 5 mg daily with gradual increase in INR. Bridging subsequently changed to Lovenox. Statin changed to high intensity with atorvastatin. Continued on aspirin. MRI brain with multiple punctate foci of restricted diffusion involving right frontal and parietal deep white matter and right parasagittal occipital lobe consistent with acute ischemia. Findings suspicious for embolic or watershed infarcts. Mild edema associated with areas of acute ischemia. No significant mass effect or midline shift. Chronic right MCA CVA with encephalomalacia and gliosis. No hemosiderin on deceptively weighted images. Left-sided weakness gradually improving. Initially on permissive hypertension, hypertensive, subsequently started on amlodipine, metoprolol. Blood blood pressures later noted soft and 100 teens, intermittently low 100s, amlodipine discontinued. Overnight on 01/08 developed bright red blood per rectum with multiple episodes of bleeding. INR noted at that point therapeutic 2.01. Lovenox discontinued. Still with additional episodes of bleeding was assessed by surgery with placement of Gelfoam soaked in thrombin with slight improvement, but with dislodgment and additional bleeding. Replaced again on 01/10. Subsequently with passage of some clots, no further fresh blood. Will need follow-up with regards to anemia, hemoglobin of 9, 12 on admission. She is asked to follow-up with surgery for reassessment after hemorrhoidectomy with anal bleeding while requiring anticoagulation after CVA with atrial fibrillation and antiphospholipid syndrome. Is asked to follow-up with neurology. She is asked to continue monitoring blood pressure. Continue high intensity statin. Continue to optimize cardiovascular risk factors which will also benefit intracranial carotid artery stenosis. Discharge to SNF was considered initially, however, she has been improving well with physical therapy and is returning home with home health instead. Physical Exam Narrative: Reports she is feeling well. Strength in left upper and lower extremity continues to improve. Some chronic residual dexterity difficulty L hand. Const: COMMON NORMALS: patient oriented x3 and alert GENERAL APPEARANCE: cooperative ORIENTATION/CONSCIOUSNESS: Yes awake HENMT: COMMON NORMALS: oropharynx normal Neck/C-Spine: COMMON NORMALS: no JVD Resp: COMMON NORMALS: normal respiratory effort and clear to auscultation bilaterally AUSCULTATION: clear to auscultation bilaterally Cardio: COMMON NORMALS: no JVD, regular rhythm, S1 normal heart sound present, S2 normal heart sound present and No murmurs present (Cardio) RHYTHM: regular rhythm HEART SOUNDS: S1 normal heart sound present and S2 normal heart sound present GI: COMMON NORMALS: Normal to inspection, nondistended, normoactive bowel sounds present, Soft to palpation and non-tender PALPATION: Yes Soft to palpation Extremity: COMMON NORMALS: no joint enlargement and no pedal edema Neuro: COMMON NORMALS: patient oriented x3 and moves all extremities SENSORIUM/ORIENTATION: Yes alert OTHER: Chronic residual left-sided sensory deficit. Residual left upper and lower weakness. Improved pronator drift. Some residual diminished dexterity left upper extremity. Skin: COMMON NORMALS: no rashes or lesions noted GENERAL SKIN EXAM: no rashes or lesions noted Urinary Catheter Management: Nicole: Cath Placed During This Visit: no Discharge Data Studies Completed and Pending Completed Studies During Hospitalization Category Date Time Status CT head wo con* [id number] Stat Cat Scan 01/04/23 13:02 Completed CTA head neck [CT angio headneck* [id number]] Stat Cat Scan 01/04/23 13:03 Completed XR KUB portable [id number] Routine Exams 01/05/23 11:06 Completed MR head wo con* [id number] Routine MRI 01/08/23 09:30 Completed Pending at discharge Category Date Time Status Urine Culture Routine Lab 01/11/23 03:00 Received Radiology Impressions Head CT 01/04/23 13:02 IMPRESSION: 1. No evidence of intracranial hemorrhage or mass effect. 2. Chronic large RIGHT MCA territory infarct with encephalomalacia appears unchanged since 2019. 3. Mild small vessel changes with mild parenchymal 4. Loss. 5. Chiari I malformation appears unchanged since 2019. No hydrocephalus. 6. No other suspicious findings. Head/Neck CTA 01/04/23 13:03 IMPRESSION: 1. Filling defect in the RIGHT mid cervical ICA at the C2 level likely soft eccentric plaque is new from previous. This results in approximately 60% ICA stenosis. There is some slight irregularity and ulceration in this area previously 2020. ICA remains patent to the skull base. 2. No significant ICA stenosis at the bifurcations bilaterally. 3. Both vertebral arteries are patent. Proximal basilar artery is patent. Persistent LEFT REFERRAL AGENT. 4. Absent LEFT A1 segment with azygos HAILE territory supplied. 5. Normal vascularity to the proximal MCA territories bilaterally. 6. Chronic large RIGHT MCA territory infarct with encephalomalacia was present in 2019. 7. No other suspicious findings. Notified Raj Matias MD at 01/04/2023 3:11 PM. KUB X-Ray 01/05/23 11:06 IMPRESSION: No acute abnormality. Head MRI 01/08/23 09:30 IMPRESSION: 1. Multiple punctate foci of restricted diffusion involving the RIGHT frontal and parietal deep white matter and RIGHT parasagittal occipital lobe consistent with acute ischemia. Findings suspicious for embolic or watershed infarcts. 2. Mild edema associated with the areas of acute ischemia. No significant mass effect or midline shift. 3. RIGHT MCA territory chronic infarct with encephalomalacia and gliosis. 4. No hemosiderin on the susceptibly weighted images. 5. No other suspicious findings. Message LEFT for Dr. Melida RENE at 01/08/2023 12:49 PM. Laboratory Results WBC 9.4 10^3/uL (4.0-10.0) 01/11/23 02:12 RBC 3.02 10^6/uL (4.1-5.3) L 01/11/23 02:12 Hgb 8.9 g/dL (11.5-15.3) L 01/11/23 10:01 Hct 27.4 % (37.0-47.0) L 01/11/23 10:01 MCV 88.7 fl (81-99) 01/11/23 02:12 MCH 28.5 pg (28.0-34.0) 01/11/23 02:12 MCHC 32.1 g/dL (30.0-36.0) 01/11/23 02:12 RDW 12.2 % (12.1-15.1) 01/11/23 02:12 Plt Count 323 10^3/cmm (130-400) 01/11/23 02:12 MPV 11.1 fL (7.4-10.4) H 01/11/23 02:12 Neut % (Auto) 65.8 % 01/11/23 02:12 Lymph % (Auto) 19.0 % 01/11/23 02:12 Isabela % (Auto) 12.6 % 01/11/23 02:12 Eos % (Auto) 2.0 % 01/11/23 02:12 Baso % (Auto) 0.3 % 01/11/23 02:12 Neut # (Auto) 6.16 10^3/uL (1.8-7.7) 01/11/23 02:12 Lymph # (Auto) 1.8 10^3/uL (0.8-4.8) 01/11/23 02:12 Isabela # (Auto) 1.2 10^3/uL (0.2-0.9) H 01/11/23 02:12 Eos # (Auto) 0.2 10^3/uL (0.0-0.8) 01/11/23 02:12 Baso # (Auto) 0.0 10^3/uL (0.0-0.1) 01/11/23 02:12 Nucleated RBC % (auto) 0 % 01/11/23 02:12 Nucleated RBCs # 0.0 /100WBC 01/11/23 02:12 PT 27.50 SECONDS (12.1-14.9) H 01/11/23 02:12 INR 2.45 (0.8-1.2) H 01/11/23 02:12 APTT 168.9 SECONDS (23.9-36.7) H* D 01/06/23 08:59 Sodium 138 mmol/L (136-145) 01/08/23 06:53 Potassium 3.6 mmol/L (3.5-5.1) 01/08/23 06:53 Chloride 99 mmol/L (98-107) 01/08/23 06:53 Carbon Dioxide 28 mmol/L (22-29) 01/08/23 06:53 Anion Gap 14.6 (5-19) 01/08/23 06:53 BUN 11 mg/dL (8-23) 01/08/23 06:53 Creatinine 0.6 mg/dL (0.5-0.9) 01/08/23 06:53 GFR Calculation 102.0 mL/min (90-130) 01/08/23 06:53 Glucose 114 mg/dL (65-115) 01/08/23 06:53 POC Glucose 134 mg/dL (70-110) H 01/09/23 06:24 Calculated Osmolality 286 mOsm/kg (285-295) 01/08/23 06:53 Calcium 9.0 mg/dL (8.5-10.5) 01/08/23 06:53 Total Bilirubin 0.3 mg/dL (0.15-1.2) 01/04/23 13:45 AST 23 U/L (0-32) 01/04/23 13:45 ALT 28 U/L (0-33) 01/04/23 13:45 Alkaline Phosphatase 116 U/L (35-105) H 01/04/23 13:45 Total Protein 6.7 g/dL (6.6-8.7) 01/04/23 13:45 Albumin 4.3 g/dL (3.5-5.2) 01/04/23 13:45 Globulin 2.4 g/dL (1.3-4.6) 01/04/23 13:45 TSH 0.26 uIU/mL (0.27-4.20) L 01/04/23 13:45 Urine Color Yellow (Yellow) 01/11/23 03:00 Urine Appearance Clear (CLEAR) 01/11/23 03:00 Urine pH 5 (5-7) 01/11/23 03:00 Ur Specific [place] 1.025 (1.005-1.030) 01/11/23 03:00 Urine Protein Not Reportable 01/11/23 03:00 Urine Glucose (UA) Not Reportable 01/11/23 03:00 Urine Ketones 1+ (Negative) H 01/11/23 03:00 Urine Blood Not Reportable 01/11/23 03:00 Urine Nitrate Not Reportable 01/11/23 03:00 Urine Bilirubin 1+ (Negative) H 01/11/23 03:00 Urine Urobilinogen 1 mg/dL (Negative) H 01/11/23 03:00 Ur Leukocyte Esterase 1+ (Negative) H 01/11/23 03:00 Urine RBC Not Reportable 01/11/23 03:00 Urine WBC 5-10 /hpf (0-5) H 01/11/23 03:00 Ur Squamous Epith Cells 0-4 /hpf (0-5) H 01/11/23 03:00 Amorphous Sediment Not Reportable 01/11/23 03:00 Urine Bacteria 1+ /hpf (NONE) H 01/11/23 03:00 SARS-CoV-2 Ag (Rapid) negative (Negative) 01/08/23 16:20 Vitals Last Vital Signs Temp 99.3 F 01/11/23 14:22 Pulse 96 01/11/23 14:22 Resp 18 01/11/23 14:22 BP 117/71 01/11/23 14:22 Pulse Ox 98 01/11/23 14:22 O2 Del Method 01/11/23 08:00 FiO2 21 01/10/23 01:00 Discharge Plan Discharge Patient Disposition: Home Health Service Condition: Stable Prescriptions: New atorvastatin 40 mg Tablet 40 mg PO BEDTIME Qty: 90 0RF metoprolol tartrate 25 mg Tablet 12.5 mg PO BID@0900,2100 Qty: 90 0RF Continued duloxetine [Cymbalta] 20 mg capsule,delayed release(DR/EC) 20 mg PO DAILY@21 alprazolam 0.5 mg tablet 0.5 mg PO Q6H PRN (Reason: Anxiety) pseudoephedrine HCl [Sudogest] 30 mg tablet 30 mg PO Q6H PRN (Reason: Nasal Congestion) aspirin 81 mg tablet,delayed release (DR/EC) 81 mg PO DAILY Qty: 30 0RF ropinirole 0.25 mg tablet 0.5 mg PO BEDTIME warfarin 5 mg tablet See Rx Instructions .ROUTE .COMPLEX Rx Instructions: 5 mg on SUNDAY- SUNDAY-SUNDAY 2.5 mg on SUNDAY- SUNDAY- SUNDAY AND SUNDAY hydrocodone-acetaminophen 7.5-325 mg tablet 1 tab PO BID PRN (Reason: Pain) oxycodone 5 mg tablet 5 mg PO Q6H PRN (Reason: Pain) Discontinued simvastatin [Zocor] 10 mg tablet 10 mg PO QPM Discharge Orders: Discharge Order (Routine); Ordered 01/11/23 Ordered By: Adama Montez [place] [facility] [facility] [place] [Outside] Lory Bennett MD [Physician] - 04/16/23 10:00 am (cva) Missy Santana MD [Primary Care Provider] - 4-7 days (dr office will call with appointment) Discharge Diet: Cardiac Discharge Activity: Limit activity as instructed and As per PT/OT instructions Patient Instructions: Metoprolol (By mouth), Atorvastatin (By mouth), A-fib (Atrial Fibrillation) (GEN), Ischemic Stroke (GEN), Hypercoagulation (GEN), Opioid Safety Activity Restrictions/Additional Instructions: Continue to monitor INR at home. Contact your primary provider in case adjustment is needed. Follow-up with your surgery provider regarding bleeding after hemorrhoidectomy surgery which is now subsided. Medical attention in case of recurrent/persistent bleeding. Follow-up with neurology for assessment of management after CVA. Continue to monitor blood pressures at home 3 times daily, write down values. Continue to work with your primary doctor to optimize blood pressure control and to work on optimizing other cardiovascular risk factors including for intracrani al carotid artery stenosis. Your cholesterol medication is changed to higher intensity statin. Maintain fall precautions. Increase physical activity. Discussed with your primary doctor regarding options to assist you with weight loss. Have your primary doctor follow-up your blood count at next visit for anemia. Discharge Attestations Time Spent in Discharge Care*: greater than 30 min Status at Discharge: Cognitive status at discharge: cognitively intact , Behavioral status at discharge: cooperative , Quality Metrics Clinical Quality Measures [ Cerebrovascular Accident { Contraindication to Antithrombotic: None; antithrombotic prescribed; Contraindication to Anticoagulation: None; anticoagulation prescribed; Contraindication to Statin: None; Statin prescribed;}] Coding Level of Care Code Acute Code for Chg Fwd Diagnoses BRBPR (bright red blood per rectum) K62.5 CVA (cerebral vascular accident) I63.9 S/P hemorrhoidectomy Z98.890; Z87.19
--- NOTE | 2023-01-11 16:26 | PC.NURSE ---
PT REFUSED VITALS DUE TO BEING DISCHARGED. RESPIRATIONS WERE OBTAINED AT 17. PT DID NOT LOOK TO BE IN DISTRESS.
== END 2023-01-11 16:40 | disposition home health service (06) | DRG 65 ==
LOC: ER 17:13 → MEDSURG 19:54
PROVIDERS: Emergency Medicine; Family Medicine; Internal Medicine; Student in an Organized Health Care Education/Training Program; Surgery; Admitting Provider Internal Medicine; Emergency Provider Family Medicine; PCP Family Medicine; Visit Provider Internal Medicine
DX: I63.40 Cerebral infarction due to embolism of unspecified cerebral artery (principal); D62 Acute posthemorrhagic anemia; G81.94 Hemiplegia, unspecified affecting left nondominant side; K92.1 Melena; D68.61 Antiphospholipid syndrome; R29.705 NIHSS score 5; I69.992 Facial weakness following unspecified cerebrovascular disease; I69.998 Other sequelae following unspecified cerebrovascular disease; R20.2 Paresthesia of skin; I48.91 Unspecified atrial fibrillation; G93.89 Other specified disorders of brain; Z79.82 Long term (current) use of aspirin; Z79.01 Long term (current) use of anticoagulants; Z79.891 Long term (current) use of opiate analgesic; I65.22 Occlusion and stenosis of left carotid artery; Z98.890 Other specified postprocedural states
CPT/HCPCS: 36415; 36416; 51702; 70450; 70496; 70498; 70551; 74018; 80048; 80053; 81001; 81003; 82962; 84443; 85014; 85018; 85025; 85610; 85730; 87086; 87426; 92507; 92523; 92526; 92610; 94660; 96372; 97110; 97116; 97161; 97166; 97530; 97535; 99285; J1170; J1644; J1650; Q9967

== ENCOUNTER 2023-01-19 10:29 | Inpatient (IN) | payer MEDICARE, SELFPAY ==
[2023-01-19] VITALS (56 sets, daily range): BP systolic 119–161; BP diastolic 70–111; PULSE 77–110; RESP 5–28; TEMP 36.7–36.8; O2SAT 90–98; BMI 36.8; BMI 36.6
--- NOTE | 2023-01-19 10:34 | CT_ITS ---
WS: [id number] CT HEAD TECHNIQUE: Noncontrast CT of the head obtained from the skullbase to the vertex. CLINICAL INFORMATION: l sided weakness COMPARISON: MRI January 08, [address] January 04, 2023 DLP: [address] scans at [facility] use at least one of these dose optimization techniques: automated e xposure control; mA and/or kV adjustment per patient size (includes targeted exams where dose is matc hed to clinical indication); or iterative reconstruction. FINDINGS: No evidence of intracranial hemorrhage or mass effect. Ventricular system and basal cisterns are cloud nt. Moderate small vessel changes with moderate parenchymal volume loss. Chronic infarct RIGHT MCA territory with encephalomalacia unchanged. Mild ex vacuo dilatation RIGHT l ateral ventricle. Recent scattered punctate infarcts previously described better seen on the recent M RI January 08, 2023. No new findings. Paranasal sinuses and mastoid air cells are well aerated. .Normal visualized soft tissues. Slight cer ebellar tonsillar ectopia unchanged CT/CT head wo con* [id number] IMPRESSION: 1. No evidence of intracranial hemorrhage or mass effect. 2. Chronic infarct RIGHT MCA territory with encephalomalacia unchanged. 3. Recent infarcts better seen on the MRI January 08, 2023. 4. No new findings today.
--- NOTE | 2023-01-19 10:34 | ECG_ITS ---
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 Measurements Intervals [place] Rate: 91 P: 41 [place]: 167 QRS: 33 QRSD: 101 T: 40 QT: 362 QTc: 446 Interpretive Statements SINUS RHYTHM LOW QRS VOLTAGE IN PRECORDIAL LEADS [QRS DEFLECTION < 1.0 mV IN CHEST LEADS] Compared to ECG 11/17/2020 10:53:07 Low QRS voltage now present Electronically Signed On 01-19-2023 16:49:26 [employer] by Richard Segura M.D. [email or web address]
[2023-01-19 10:57] LABS: Glucose Point of Care 118 mg/dL (70-110)
[2023-01-19 11:02] LABS: Basophils % 0.4 %; Eosinophils # 0.1 10^3/uL (0.0-0.8); Eosinophils % 1.5 %; Hematocrit 26.8 % (37.0-47.0); Hemoglobin 8.3 g/dL (11.5-15.3); Lymphocytes # 0.9 10^3/uL (0.8-4.8); Lymphocytes % 16.1 %; Mean Corpuscular Hemoglobin 28.4 pg (28.0-34.0); Mean Corpuscular Volume 91.8 fl (81-99); Mean Platelet Volume 9.9 fL (7.4-10.4); Monocytes # 0.4 10^3/uL (0.2-0.9); Neutrophils # 3.88 10^3/uL (1.8-7.7); Neutrophils % 73.6 %; Nucleated Red Blood Cells % 0 %; Platelet Count 347 10^3/cmm (130-400); Red Blood Count 2.92 10^6/uL (4.1-5.3); Red Cell Distribution Width 13.5 % (12.1-15.1); White Blood Count 5.3 10^3/uL (4.0-10.0)
[2023-01-19] MEDS: sodium chloride 0.9% 1,000 ML 100 ML IV ×3 (11:06→23:41)
[2023-01-19 11:25] LABS: Alanine Aminotransferase 10 U/L (0-33); Albumin Level 3.8 g/dL (3.5-5.2); Alkaline Phosphatase 114 U/L (35-105); Anion Gap 12.2 (5-19); Aspartate Amino Transferase 17 U/L (0-32); Blood Urea Nitrogen 9 mg/dL (8-23); Calcium 8.8 mg/dL (8.5-10.5); Carbon Dioxide 27 mmol/L (22-29); Chloride 104 mmol/L (98-107); Globulin 2.8 g/dL (1.3-4.6); Glucose 119 mg/dL (65-115); Osmolality Calculated 290 mOsm/kg (285-295); Potassium 3.2 mmol/L (3.5-5.1); Sodium 140 mmol/L (136-145); Total Bilirubin 0.2 mg/dL (0.15-1.2); Total Protein 6.6 g/dL (6.6-8.7)
--- NOTE | 2023-01-19 11:57 | PC.PHAR ---
PT VERIFIED HER MEDICATIONS-PT STATES SHE IS TAKING ZOCOR 40MG HS FILLED 12/27/22 90D/S PT HAD RX FILLED ON 01/11/23 90D/S FOR LIPITOR 40MG HS PT STATES NOT TAKING LIPITOR-PT STATES SHE HASNT STARTED TAKING METOPROLOL TART 12.5MG BID FILLED 01/11/23 90D/S-NOTES ARE MADE IN THE PHARMACY COMMENTS
--- NOTE | 2023-01-19 13:20 | ED_ITS ---
HPI - Neuro Symptoms/Deficit General: Chief Complaint: Neuro Symptoms/Deficit Stated Complaint: stroke like symptoms Time Seen by Provider: 01/19/23 10:34 Source: patient Mode of arrival: EMS History of Present Illness: 62-year-old female who presents emergency room via EMS complaining of sudden left-sided weakness she has a history of CVA with residual deficit on the left side which had its worsened. Initially she could not move her left leg and her left arm is very weak when I arrived she could lift her left arm still having some difficulty with a cannot lift the left leg at all. Her last known well was shortly before arriving here on however she is on Coumadin. Her speech is vision and swallowing are normal Onset (ago): minute(s) Location: left arm and left leg History of same: Yes Relieving factors: none Exacerbating factors: none Context: sudden onset Associated symptoms: Deny chest pain, cough, diaphoresis, fevers/chills, headache(s), anorexia, malaise, nausea, seizures, short of breath, syncope, tingling, vertigo, vomiting or weakness Treatments Prior to Arrival: none Review of Systems Const: Denies: fever(s), chills, fatigue, malaise or diaphoresis ENMT: Denies: throat pain, ear or mastoid pain, nasal discharge or nasal congestion Card: Denies: chest pain or syncope Resp: Denies: dyspnea, productive cough or non-productive cough GI: Denies: nausea or vomiting : Denies: flank pain, difficulty voiding, dysuria, urinary frequency or urinary urgency Skin/Breast: Denies: rash or pruritus Neuro: Denies: headache(s) or vertigo [facility] ED PFSH: Medical History (Updated 01/22/23 @ 07:25 by Kenterll Lazo DO) Antiphospholipid syndrome Atrial fibrillation Left acute arterial ischemic stroke, MCA (middle cerebral artery) Transient cerebral ischemia Surgical History (Updated 01/19/23 @ 16:17 by Arjun Hyatt MD) History of appendectomy History of mastectomy S/P hemorrhoidectomy Family History Other CAD (coronary artery disease) Social History Smoking and tobacco status: never smoked Alcohol intake: never NIH stroke score NIHSS: Level Of Consciousness - 1a: 0 Level Of Consciousness Questions - 1b: Both Correct Level Of Consciousness Commands - 1c: Both Correct Best Gaze - 2: Normal Visual B[place]amante - 3: No Visual Loss Facial Palsy - 4: Normal Motor Arm Right - 5: No Drift Motor Arm Left - 5: Drift Motor Leg Right - 6: No Drift Motor Leg Left - 6: No Effort Against Onsted Limb Ataxia - 7: Present In Two Limbs Sensory - 8: Normal Best Language - 9: No Aphasia Dysarthia - 10: Normal Extinction And Inattention - 11: 0 Score: Total Score: 6 Physical Exam Const: COMMON NORMALS: no acute distress GENERAL APPEARANCE: cooperative and comfortable ORIENTATION/CONSCIOUSNESS: Yes awake, Yes oriented to person, Yes oriented to place and Yes oriented to time HENMT: COMMON NORMALS: normocephalic, atraumatic and hearing grossly normal bilaterally HEAD & SCALP: normocephalic and atraumatic Resp: COMMON NORMALS: normal respiratory effort, No retractions, No use of accessory muscles and clear to auscultation bilaterally AUSCULTATION: clear to auscultation bilaterally Cardio: COMMON NORMALS: regular rate, regular rhythm and No murmurs present (Cardio) RATE: regular rate RHYTHM: regular rhythm GI: COMMON NORMALS: Soft to palpation and No hepatosplenomegaly present AUSCULTATION: Yes normoactive bowel sounds PALPATION: Yes Soft to palpation, No Tenderness to palpation present (GI), No Guarding due to palpation present (GI) and Yes No hepatosplenomegaly present Extremity: COMMON NORMALS: normal to inspection, capillary refill normal, no clubbing, cyanosis or edema, no calf tenderness and no pedal edema Neuro: SENSORIUM/ORIENTATION: Yes oriented to person, Yes oriented to place and Yes oriented to time Skin: COMMON NORMALS: no rashes or lesions noted GENERAL SKIN EXAM: no rashes or lesions noted Course Vital Signs: Vital signs: Vital Signs Temperature 97.6 F 01/22/23 04:00 Pulse Rate 87 01/22/23 06:00 Respiratory Rate 17 01/22/23 04:00 Blood Pressure 147/73 01/22/23 04:00 Pulse Oximetry 95 01/22/23 04:00 Oxygen Delivery Me thod 01/21/23 15:44 Fraction of Inspir ed Oxygen 21 01/20/23 00:15 MDM - Neuro Symptoms/Deficit Medical Decision Making NIH score is 6 however 2-3 of those points are due to her previous stroke. So an adjusted score would be 3-4 she did not be an candidate for embolism she is already noticed improvement. She is not a candidate for tPA because she is on Coumadin. Her score is too low for embolectomy and she is already improving. Discussed with hospitalist will admit. Additionally patient is anemic not at the level that she will need a transfusion, but she will need to be monitored closely. She is on Coumadin but she is subtherapeutic on her INR. Medical Records I reviewed the patient's medical records. Lab Data I reviewed the patient's lab results. 01/19/23 10:45 01/19/23 10:[address] 01/19/23 10:34 IMPRESSION: 1. No evidence of intracranial hemorrhage or mass effect. 2. Chronic infarct RIGHT MCA territory with encephalomalacia unchanged. 3. Recent infarcts better seen on the MRI January 08, 2023. 4. No new findings today. Laboratory Results WBC 5.3 10^3/uL (4.0-10.0) 01/19/23 10:45 RBC 2.92 10^6/uL (4.1-5.3) L 01/19/23 10:45 Hgb 8.3 g/dL (11.5-15.3) L 01/19/23 10:45 Hct 26.8 % (37.0-47.0) L 01/19/23 10:45 MCV 91.8 fl (81-99) 01/19/23 10:45 MCH 28.4 pg (28.0-34.0) 01/19/23 10:45 MCHC 31.0 g/dL (30.0-36.0) 01/19/23 10:45 RDW 13.5 % (12.1-15.1) 01/19/23 10:45 Plt Count 347 10^3/cmm (130-400) 01/19/23 10:45 MPV 9.9 fL (7.4-10.4) 01/19/23 10:45 Neut % (Auto) 73.6 % 01/19/23 10:45 Lymph % (Auto) 16.1 % 01/19/23 10:45 Winston % (Auto) 8.0 % 01/19/23 10:45 Eos % (Auto) 1.5 % 01/19/23 10:45 Baso % (Auto) 0.4 % 01/19/23 10:45 Neut # (Auto) 3.88 10^3/uL (1.8-7.7) 01/19/23 10:45 Lymph # (Auto) 0.9 10^3/uL (0.8-4.8) 01/19/23 10:45 Winston # (Auto) 0.4 10^3/uL (0.2-0.9) 01/19/23 10:45 Eos # (Auto) 0.1 10^3/uL (0.0-0.8) 01/19/23 10:45 Baso # (Auto) 0.0 10^3/uL (0.0-0.1) 01/19/23 10:45 Nucleated RBC % (auto) 0 % 01/19/23 10:45 Nucleated RBCs # 0.0 /100WBC 01/19/23 10:45 PT 19.50 SECONDS (12.1-14.9) H 01/19/23 10:45 INR 1.59 (0.8-1.2) H 01/19/23 10:45 Sodium 140 mmol/L (136-145) 01/19/23 10:45 Potassium 3.2 mmol/L (3.5-5.1) L 01/19/23 10:45 Chloride 104 mmol/L (98-107) 01/19/23 10:45 Carbon Dioxide 27 mmol/L (22-29) 01/19/23 10:45 Anion Gap 12.2 (5-19) 01/19/23 10:45 BUN 9 mg/dL (8-23) 01/19/23 10:45 Creatinine 0.6 mg/dL (0.5-0.9) 01/19/23 10:45 GFR Calculation 102.0 mL/min (90-130) 01/19/23 10:45 Glucose 119 mg/dL (65-115) H 01/19/23 10:45 POC Glucose 118 mg/dL (70-110) H 01/19/23 10:37 Calculated Osmolality 290 mOsm/kg (285-295) 01/19/23 10:45 Calcium 8.8 mg/dL (8.5-10.5) 01/19/23 10:45 Iron 29 ug/dL (37-145) L 01/19/23 10:45 TIBC 347 mcg/dl 01/19/23 10:45 % Saturation 8.3 % (20-50) L 01/19/23 10:45 Unsat Iron Binding 318 ug/dL (112-347) 01/19/23 10:45 Ferritin 37 ng/mL (15-150) 01/19/23 10:45 Total Bilirubin 0.2 mg/dL (0.15-1.2) 01/19/23 10:45 AST 17 U/L (0-32) 01/19/23 10:45 ALT 10 U/L (0-33) 01/19/23 10:45 Alkaline Phosphatase 114 U/L (35-105) H 01/19/23 10:45 Total Protein 6.6 g/dL (6.6-8.7) 01/19/23 10:45 Albumin 3.8 g/dL (3.5-5.2) 01/19/23 10:45 Globulin 2.8 g/dL (1.3-4.6) 01/19/23 10:45 Discharge Plan Discharge Patient Disposition: Admitted As Inpatient Admit Provider: Arjun Hyatt Clinical Impression: CVA (cerebral vascular accident), Acute anemia, Subtherapeutic anticoagulation Condition: Stable Coding Level of Care Code ED [employer] for Tracey Farrar
[2023-01-19 13:44] LABS: INR 1.59 (0.8-1.2)
[2023-01-19] MEDS: LORazepam 2 mg Tablet PO (14:01)
[2023-01-19 15:58] LABS: Ferritin 37 ng/mL (15-150); Iron 29 ug/dL (37-145); Percent Saturation 8.3 % (20-50); Total Iron Binding Capacity 347 mcg/dl; Unsaturated Iron Binding 318 ug/dL (112-347)
--- NOTE | 2023-01-19 16:07 | P.HP_ITS ---
Providers/Chief Complaint Admitting Physician: Arjun Hyatt MD Primary Care Provider: Missy Santana MD Chief Complaint: stroke like symptoms History of Present Illness Nai Mancilla is a 62 year old female with a history of breast or, CVA, recurrent CVA, antiphospholipid syndrome history of carotid artery stenosis, this is patient's seventh admission for recurrent CVA symptoms on her left side, since at least 2014. She has a chronic history of CVA, with left-sided residual deficits left-sided hand weakness she tells me on Sunday she hadleft-sided weakness, with urinary incontinence, she did not want to come to the hospital, and her symptoms resolved. Today, roughly at 930, she felt that her left side was weak, her left leg and her left hand were weak, her tells me that she had some left facial droop, upon arrival her NIH stroke scale was 6, she is not a tPA candidate as she was on Coumadin, her INR subtherapeutic at 1.56, she is not exactly sure why, currently she is alert oriented x3, no facial droop, no slurring of her words, no significant weakness in the legs she is still having some weakness in her left hand but it significant improved since she came here to the emergency room. CT of the head was negative for acute bleed. She is significantly feeling better doing better, she denies a history of seizures, but it is quite strange as if she had urinary incontinence on her strokes episode on Sunday. Denies any visual deficits, no headache, blurry vision, no productive or receptive aphasia, her only complaint is weakness in her left hand which is not back to normal I have her NIH stroke scale at roughly 3 Review of Systems Const: Denies: fever(s) Eyes: Denies: change in vision Card: Denies: chest pain Resp: Denies: dyspnea GI: Denies: abdominal pain : Denies: flank pain or difficulty voiding Musc: Denies: neck pain or back pain Skin/Breast: Denies: rash Neuro: Reports: numbness in extremities and weakness in extremities; Denies: headache(s) Psych: Denies: anxiety Medications/Allergies Home Medications Medication Instructions Recorded Confirmed Last Taken Type pseudoephedrine HCl 30 mg tablet 30 mg PO Q6H PRN Nasal Congestion 11/17/20 01/19/2320 History (Sudogest) aspirin 81 mg tablet,delayed 81 mg PO DAILY #30 tabs 11/19/20 01/19/23 01/03/23 Rx release hydrocodone 7.5 mg-acetaminophen 1 tab PO BID PRN Pain 01/04/23 01/19/23 Unknown History 325 mg tablet ropinirole 0.25 mg tablet 0.5 mg PO BEDTIME 01/04/23 01/19/23 01/03/23 History warfarin 5 mg tablet See Rx Instructions .Route .COMPLEX 01/04/23 01/19/23 01/03/23 History metoprolol tartrate 25 mg tablet 12.5 mg PO BID@0900,2100 #90 tabs 01/11/23 01/19/23 Unknown Rx alprazolam 1 mg tablet 1 mg PO BEDTIME 01/19/23 01/19/23 Unknown History docusate sodium 100 mg capsule 100 mg PO BID PRN Constipation 01/19/23 01/19/23 01/18/23 History (Colace) duloxetine 60 mg capsule,delayed 60 mg PO BEDTIME 01/19/23 01/19/23 01/18/23 History release simvastatin 40 mg tablet 40 mg PO BEDTIME 01/19/23 01/19/23 01/18/23 History Allergies Allergy/AdvReac Type Severity Reaction Status Date / Time aspirin [From Percodan] Allergy ADR-Halluci Verified 01/04/23 14:47 nating oxycodone [From Percodan] Allergy ADR-Halluci Verified 01/04/23 14:47 nating PFSH Acute PFSH: Medical History (Updated 01/19/23 @ 16:20 by Arjun Hyatt MD) Antiphospholipid syndrome Atrial fibrillation Left acute arterial ischemic stroke, MCA (middle cerebral artery) Transient cerebral ischemia Surgical History (Updated 01/19/23 @ 16:17 by Arjun Hyatt MD) History of appendectomy History of mastectomy S/P hemorrhoidectomy Family History Other CAD (coronary artery disease) Social History Smoking and tobacco status: never smoked Alcohol intake: never Vitals/I&O/Wt Last Vital Signs Temp 98.1 F 01/19/23 10:38 Pulse 99 01/19/23 16:04 Resp 5 L 01/19/23 16:04 BP 151/86 01/19/23 16:04 Pulse Ox 96 01/19/23 16:04 O2 Del Method 01/19/23 10:38 Weight last 48 hrs Weight 94.347 kg Physical Exam Const: COMMON NORMALS: no acute distress and patient oriented x3 HENMT: COMMON NORMALS: normocephalic Eye: COMMON NORMALS: Equal, round and reactive pupils present and EOMs intact bilaterally Neck/C-Spine: COMMON NORMALS: full ROM and no lymphadenopathy Lymph: LYMPHATIC: no lymphadenopathy noted Resp: COMMON NORMALS: normal respiratory effort, No retractions, No use of accessory muscles and clear to auscultation bilaterally AUSCULTATION: clear to auscultation bilaterally Cardio: COMMON NORMALS: no JVD, regular rate, regular rhythm, S1 normal heart sound present and S2 normal heart sound present RATE: regular rate RHYTHM: regular rhythm HEART SOUNDS: S1 normal heart sound present and S2 normal heart sound present GI: COMMON NORMALS: Normal to inspection, nondistended, normoactive bowel sounds present, Soft to palpation and non-tender : COMMON NORMALS: Yes no CVA tenderness Extremity: COMMON NORMALS: no pedal edema Neuro: COMMON NORMALS: patient oriented x3, CN's II-XII intact bilaterally and moves all extremities OTHER: Left hand strength, 3 out of 5 compared to 5 out of 5 on the right, trouble coordinating Left arm strength 3 out of 5 compared to 5 of 5 on the right Left shoulder strength 4 out of 5 go to 5 of 5 on the right Left leg strength 5 out of 5 No facial droop, no slurring of her words Psych: COMMON NORMALS: mental status grossly normal Skin: NARRATIVE SKIN EXAM: Has lupus-like rash, around eyes Data 01/19/23 10:45 01/19/23 10:45 A&P Assessment and plan (1) Left arm weakness: (2) CVA (cerebral vascular accident): (3) Antiphospholipid syndrome: (4) TIA (transient ischemic attack): (5) Thrombophilia: (6) Subtherapeutic anticoagulation: Plan Recurrent CVA -Since at least 2014 that I can see documented she has had recurrent CVA s ymptoms on the left -She continues to have intermittent symptoms at home -1 episode on Sunday that episode was associate with urinary incontinence -This episode was significant this morning at 930, with left-sided deficits which are resolving now has persistent left hand weakness -Recently hospitalized for CVA symptoms on the left -She is adamant she is taking her Coumadin but INR is subtherapeutic -Has a history of hypercoagulability with antiphospholipid syndrome Plan -Admit to general medical floors -Neurochecks, aspiration precautions, NIH stroke scale -As Coumadin is subtherapeutic, pharmacy consulted, bridged with heparin drip -Aspirin, statin, -We will monitor blood pressures closely, allow for permissive hypertension -Continue IV fluids -Continue Keppra for possible seizure-like episodes -Full code -Heparin drip for DVT prophylaxis Does have acute on chronic anemia, is on Coumadin, iron studies, Hemoccult stool, Protonix, Carafate -Monitor hemoglobin every 6 hours Urine studies, check INR, recheck hypercoagulability panel Attestations Medical Necessity Statement*: Patient requires hospitalization due to recurrent CVA symptoms, anemia, inpatient, greater than 2 midnights Diagnoses Left arm weakness R29.898 CVA (cerebral vascular accident) I63.9 Antiphospholipid syndrome D68.61 TIA (transient ischemic attack) G45.9 Thrombophilia D68.59 Subtherapeutic anticoagulation Z51.81; Z79.01
[2023-01-19] MEDS: potassium chloride ER 20 mEq Tablet 40 MEQ PO (17:00)
[2023-01-19] MEDS: pantoprazole 40 mg SDV IVP (17:31)
[2023-01-19] MEDS: sucralfate 1 gm Tablet PO (17:46)
[2023-01-19] MEDS: warfarin 5 mg Tablet PO (17:46)
[2023-01-19 18:32] LABS: INR 1.55 (0.8-1.2)
[2023-01-19 19:25] LABS: Partial Thromboplastin Time 43.5 SECONDS (23.9-36.7)
[2023-01-19] MEDS: heparin drip 25,000 UNIT/500 ML PREMIX 26 UNIT IV (20:26)
[2023-01-19] MEDS: heparin 5,000 unit/mL INJ 1 mL IV (20:41)
[2023-01-19] MEDS: ALPRAZolam 0.5 mg Tablet 1 MG PO (20:58)
[2023-01-19] MEDS: ropinirole 0.25 mg Tablet 0.5 MG PO (20:59)
[2023-01-19] MEDS: duloxetine 60 mg Capsule PO (20:59)
[2023-01-19] MEDS: atorvastatin 40 mg Tablet 20 MG PO (20:59)
[2023-01-19] MEDS: HYDROcodone-acetaminophen 7.5-325 mg Tablet 1 TAB PO (22:17)
[2023-01-20] VITALS (11 sets, daily range): BP systolic 119–142; BP diastolic 70–88; PULSE 82–112; RESP 16–17; TEMP 36.6–37.1; O2SAT 93–98
[2023-01-20 00:22] LABS: Basophils % 0.4 %; Eosinophils # 0.1 10^3/uL (0.0-0.8); Eosinophils % 2.2 %; Hematocrit 25.5 % (37.0-47.0); Hemoglobin 7.8 g/dL (11.5-15.3); Lymphocytes # 1.4 10^3/uL (0.8-4.8); Lymphocytes % 27.4 %; Mean Corpuscular HGB Conc 30.6 g/dL (30.0-36.0); Mean Corpuscular Hemoglobin 28.3 pg (28.0-34.0); Mean Corpuscular Volume 92.4 fl (81-99); Mean Platelet Volume 10.1 fL (7.4-10.4); Monocytes # 0.5 10^3/uL (0.2-0.9); Monocytes % 9.8 %; Neutrophils # 2.99 10^3/uL (1.8-7.7); Neutrophils % 59.8 %; Nucleated Red Blood Cells % 0.4 %; Platelet Count 338 10^3/cmm (130-400); Red Blood Count 2.76 10^6/uL (4.1-5.3); Red Cell Distribution Width 13.3 % (12.1-15.1)
[2023-01-20 00:54] LABS: Partial Thromboplastin Time > 250.0 SECONDS (23.9-36.7)
[2023-01-20 04:04] LABS: Add Urine Microscopic? YES; Bilirubin Urine Neg (Negative); Blood Urine Neg (Negative); Glucose Urine UA Norm (Normal); Ketones Urine Negative (Negative); Leukocyte Esterase Urine 1+ (Negative); Nitrate Urine Negative (Negative); Protein Urine Neg (Negative); Urine Appearance Clear (CLEAR); Urine Color Colorless (Yellow); Urobilinogen Urine Neg (Negative); pH Urine 5 (5-7)
[2023-01-20 04:13] LABS: Add Urine Culture? No; Bacteria Urine TRACE /hpf; Mucus Urine TRACE /hpf; RBC Urine 0-4 /hpf (0-2); Squamous Epithelial Cell Urine 0-4 /hpf (0-5)
[2023-01-20] MEDS: sucralfate 1 gm Tablet PO ×2 (04:58→17:56)
[2023-01-20] MEDS: acetaminophen 325 mg Tablet 650 MG PO ×2 (05:01→23:50)
[2023-01-20 05:34] LABS: Basophils % 0.4 %; Eosinophils # 0.1 10^3/uL (0.0-0.8); Eosinophils % 2.2 %; Hematocrit 26.4 % (37.0-47.0); Lymphocytes # 1.2 10^3/uL (0.8-4.8); Lymphocytes % 25.8 %; Mean Corpuscular HGB Conc 30.3 g/dL (30.0-36.0); Mean Corpuscular Hemoglobin 28.5 pg (28.0-34.0); Mean Platelet Volume 9.9 fL (7.4-10.4); Monocytes # 0.5 10^3/uL (0.2-0.9); Monocytes % 9.7 %; Neutrophils # 2.84 10^3/uL (1.8-7.7); Neutrophils % 61.5 %; Nucleated Red Blood Cells % 0 %; Platelet Count 332 10^3/cmm (130-400); Red Blood Count 2.81 10^6/uL (4.1-5.3); Red Cell Distribution Width 13.3 % (12.1-15.1); White Blood Count 4.6 10^3/uL (4.0-10.0)
[2023-01-20 05:50] LABS: Partial Thromboplastin Time 43.7 SECONDS (23.9-36.7)
[2023-01-20] MEDS: pantoprazole 40 mg SDV IVP ×2 (05:52→17:55)
[2023-01-20 05:59] LABS: Estmated Average Glucose 97
[2023-01-20 06:03] LABS: INR 1.61 (0.8-1.2)
[2023-01-20 06:07] LABS: Anion Gap 12.6 (5-19); Blood Urea Nitrogen 6 mg/dL (8-23); Calcium 9.1 mg/dL (8.5-10.5); Carbon Dioxide 26 mmol/L (22-29); Chloride 108 mmol/L (98-107); Chol HDL Ratio 4.18 mg/dL (0.0-4.40); Cholesterol 138 mg/dL (0-200); Glucose 92 mg/dL (65-115); HDL Cholesterol 33 mg/dL (60-100); LDL Cholesterol Calculated 66 mg/dL (50-129); Magnesium 2.1 mg/dL (1.7-2.3); Osmolality Calculated 293 mOsm/kg (285-295); Phosphorus 2.3 mg/dL (2.5-4.5); Potassium 3.6 mmol/L (3.5-5.1); Sodium 143 mmol/L (136-145); Thyroid Stimulating Hormone 1.68 uIU/mL (0.27-4.20); Triglycerides 196 mg/dL (0-150)
[2023-01-20] MEDS: aspirin 81 mg EC Tablet PO (10:23)
[2023-01-20] MEDS: sodium chloride 0.9% 1,000 ML 100 ML IV (11:10)
--- NOTE | 2023-01-20 14:05 | PC.OT ---
Patient was sleeping when this therapist arrived. She requested that evaluation be completed tomorrow.
[2023-01-20 14:34] LABS: Partial Thromboplastin Time > 250.0 SECONDS (23.9-36.7)
--- NOTE | 2023-01-20 16:01 | PM.PN ---
Subjective Subjective: Patient was seen this morning, she tells me that she does not really feel any better with the Keppra, her mobility in her left hand is improving to some degree, her numbness is improving, no fevers, no chills, Vitals/I&O/Wt Last Vital Signs Temp 98.3 F 01/20/23 12:00 Pulse 90 01/20/23 12:00 Resp 16 01/20/23 12:00 BP 142/81 01/20/23 12:00 Pulse Ox 96 01/20/23 12:00 O2 Del Method 01/20/23 12:00 FiO2 21 01/20/23 00:15 01/20/23 01/20/23 01/20/23 06:59 14:59 22:59 Intake Total 895.766 / 8454.988 4079 / 1480 Output Total 500 / 500 1700 / 1700 Balance 395.766 / 1062.433 -220 / -220 Weight last 48 hrs Weight 93.894 kg Weight 94.347 kg Physical Exam Const: COMMON NORMALS: no acute distress and patient oriented x3 Resp: COMMON NORMALS: normal respiratory effort, No retractions, No use of accessory muscles and clear to auscultation bilaterally AUSCULTATION: clear to auscultation bilaterally Cardio: COMMON NORMALS: regular rate, regular rhythm, S1 normal heart sound present and S2 normal heart sound present RATE: regular rate RHYTHM: regular rhythm HEART SOUNDS: S1 normal heart sound present and S2 normal heart sound present GI: COMMON NORMALS: Normal to inspection, nondistended, normoactive bowel sounds present and non-tender Extremity: COMMON NORMALS: no pedal edema NARRATIVE EXTREMITY EXAM: Left hand, strength, 3 out of 5, trouble coordinating Neuro: COMMON NORMALS: patient oriented x3 Psych: COMMON NORMALS: mental status grossly normal Data 01/20/23 05:02 01/20/23 05:02 Micro: Microbiology 01/19/23 22:53 Occult Blood (FIT) - Final Stool A&P Assessment and plan (1) Left arm weakness: (2) CVA (cerebral vascular accident): (3) Antiphospholipid syndrome: (4) TIA (transient ischemic attack): (5) Thrombophilia: (6) Subtherapeutic anticoagulation: Plan Recurrent CVA -Since at least 2014 that I can see documented she has had recurrent CVA symptoms on the left, she has had over 6 admissions that I could count -She continues to have intermittent symptoms at home -1 episode on Sunday that episode was associate with urinary incontinence -This episode was significant this morning at 930, with left-sided deficits which are resolving now has persistent left hand weakness -Recently hospitalized for CVA symptoms on the left -She is adamant she is taking her Coumadin but INR is subtherapeutic -Has a history of hypercoagulability with antiphospholipid syndrome Plan -Admit to general medical floors -Neurochecks, aspiration precautions, NIH stroke scale -As Coumadin is subtherapeutic, pharmacy consulted, bridged with heparin drip -Aspirin, statin, -We will monitor blood pressures closely, allow for permissive hypertension -Stop IV fluids -Continue Keppra for possible seizure-like episodes -Full code -Heparin drip for DVT prophylaxis Does have acute on chronic anemia, is on Coumadin, iron studies, Hemoccult stool, Protonix, Carafate -Monitor hemoglobin recheck hypercoagulability panel Attestations Medical Necessity Statement*: Patient requires hospitalization for recurrent CVA Diagnoses Left arm weakness R29.898 CVA (cerebral vascular accident) I63.9 Antiphospholipid syndrome D68.61 TIA (transient ischemic attack) G45.9 Thrombophilia D68.59 Subtherapeutic anticoagulation Z51.81; Z79.01
[2023-01-20] MEDS: warfarin 5 mg Tablet PO (16:51)
[2023-01-20] MEDS: HYDROcodone-acetaminophen 7.5-325 mg Tablet 1 TAB PO (17:55)
[2023-01-20 19:47] LABS: Partial Thromboplastin Time 40.4 SECONDS (23.9-36.7)
[2023-01-20] MEDS: duloxetine 60 mg Capsule PO (20:47)
[2023-01-20] MEDS: atorvastatin 40 mg Tablet 20 MG PO (20:48)
[2023-01-20] MEDS: ropinirole 0.25 mg Tablet 0.5 MG PO (20:48)
[2023-01-20] MEDS: ALPRAZolam 0.5 mg Tablet 1 MG PO (20:49)
[2023-01-20] MEDS: heparin drip 25,000 UNIT/500 ML PREMIX 30 UNIT IV (23:51)
[2023-01-21] VITALS (16 sets, daily range): BP systolic 114–136; BP diastolic 67–89; PULSE 71–98; RESP 16–18; TEMP 36.4–36.7; O2SAT 94–97
[2023-01-21 02:31] LABS: Basophils % 0.3 %; Eosinophils # 0.2 10^3/uL (0.0-0.8); Eosinophils % 2.5 %; Hematocrit 24.1 % (37.0-47.0); Hemoglobin 7.5 g/dL (11.5-15.3); Lymphocytes # 1.8 10^3/uL (0.8-4.8); Lymphocytes % 27.9 %; Mean Corpuscular HGB Conc 31.1 g/dL (30.0-36.0); Mean Corpuscular Hemoglobin 28.4 pg (28.0-34.0); Mean Corpuscular Volume 91.3 fl (81-99); Monocytes # 0.6 10^3/uL (0.2-0.9); Monocytes % 9.4 %; Neutrophils % 59.7 %; Nucleated Red Blood Cells % 0 %; Platelet Count 313 10^3/cmm (130-400); Red Blood Count 2.64 10^6/uL (4.1-5.3); Red Cell Distribution Width 13.2 % (12.1-15.1); White Blood Count 6.5 10^3/uL (4.0-10.0)
[2023-01-21 02:53] LABS: Anion Gap 12.6 (5-19); Blood Urea Nitrogen 9 mg/dL (8-23); Calcium 8.3 mg/dL (8.5-10.5); Carbon Dioxide 25 mmol/L (22-29); Chloride 107 mmol/L (98-107); Glucose 113 mg/dL (65-115); Magnesium 2.1 mg/dL (1.7-2.3); Osmolality Calculated 291 mOsm/kg (285-295); Potassium 3.6 mmol/L (3.5-5.1); Sodium 141 mmol/L (136-145)
[2023-01-21] MEDS: HYDROcodone-acetaminophen 7.5-325 mg Tablet 1 TAB PO ×2 (03:04→14:01)
[2023-01-21 03:21] LABS: Partial Thromboplastin Time 172.3 SECONDS (23.9-36.7)
[2023-01-21 03:25] LABS: INR 1.76 (0.8-1.2)
[2023-01-21] MEDS: pantoprazole 40 mg SDV IVP ×2 (05:57→17:48)
[2023-01-21] MEDS: sucralfate 1 gm Tablet PO ×2 (05:58→17:48)
[2023-01-21 08:50] LABS: Partial Thromboplastin Time 44.3 SECONDS (23.9-36.7)
[2023-01-21] MEDS: aspirin 81 mg EC Tablet PO (09:11)
[2023-01-21] MEDS: levETIRAcetam 500 mg Tablet PO ×2 (09:11→17:49)
[2023-01-21 14:10] LABS: Hematocrit 24.3 % (37.0-47.0); Hemoglobin 7.4 g/dL (11.5-15.3)
--- NOTE | 2023-01-21 15:12 | P.PN_ITS ---
Subjective Subjective: - I had extensive discussion with patient -Currently hemoglobin 7.5, her hemoglobin has been drifting downwards, her Hemoccult stool was positive for blood -The issue is is that she is on anticoagulation for her antiphospholipid syndrome or CVA and she came with a subtherapeutic INR -Some bridging her with Coumadin and Lovenox -Now she has evidence of a GI bleed slow GI bleed as she does not really have any hemodynamic compromise no complaints of bloody or black stools -So there is a risk if we stop anticoagulation that she might develop recurrent CVA symptoms that she continues to have left hand weakness -On the other hand she could have a GI bleed that suspicious significant morbidity mortality -This is a certainly a difficult situation -And perform EGD and colonoscopy given anesthesia does have a risk of strokes, especially as she is just had 1 -So my plan is to continue heparin drip and monitor hemoglobin for the next 24 hours -If her hemoglobin continues to drop then we will have to stop the heparin drip Vitals/I&O/Wt Last Vital Signs Temp 97.9 F 01/21/23 15:00 Pulse 87 01/21/23 15:00 Resp 18 01/21/23 15:00 BP 118/81 01/21/23 14:42 Pulse Ox 95 01/21/23 14:42 O2 Del Method 01/21/23 11:34 FiO2 21 01/20/23 00:15 01/21/23 01/21/23 01/21/23 06:59 14:59 22:59 Intake Total 335.0 / 3070.0 480 / 480 Balance 335.0 / 1370.0 480 / 480 Weight last 48 hrs Weight 93.894 kg Physical Exam Const: COMMON NORMALS: no acute distress and patient oriented x3 Resp: COMMON NORMALS: normal respiratory effort, No retractions, No use of accessory muscles and clear to auscultation bilaterally AUSCULTATION: clear to auscultation bilaterally Cardio: COMMON NORMALS: regular rate, regular rhythm, S1 normal heart sound p resent and S2 normal heart sound present RATE: regular rate RHYTHM: regular rhythm HEART SOUNDS: S1 normal heart sound present and S2 normal heart sound present GI: COMMON NORMALS: Normal to inspection, nondistended, normoactive bowel sounds present and non-tender Extremity: COMMON NORMALS: no pedal edema NARRATIVE EXTREMITY EXAM: Right hand with tennis, still 3 out of 5, trouble coordinating, lack of sensation Neuro: COMMON NORMALS: patient oriented x3 Psych: COMMON NORMALS: mental status grossly normal Data 01/21/23 13:45 01/21/23 02:20 A&P Assessment and plan (1) Left arm weakness: (2) CVA (cerebral vascular accident): (3) Antiphospholipid syndrome: (4) TIA (transient ischemic attack): (5) Thrombophilia: (6) Subtherapeutic anticoagulation: (7) Acute anemia: (8) GI bleed: Plan Recurrent CVA -Since at least 2014 that I can see documented she has had recurrent CVA symptoms on the left, she has had over 6 admissions that I could count -She continues to have intermittent symptoms at home -1 episode on Sunday that episode was associate with urinary incontinence -This episode was significant this morning at 930, with left-sided deficits which are resolving now has persistent left hand weakness -Recently hospitalized for CVA symptoms on the left -She is adamant she is taking her Coumadin but INR is subtherapeutic -Has a history of hypercoagulability with antiphospholipid syndrome Plan -Admit to general medical floors -Neurochecks, aspiration precautions, NIH stroke scale -Continue heparin drip hold Coumadin due to concern for GI bleed -Aspirin, statin, -We will monitor blood pressures closely, allow for permissive hypertension -Continue Keppra for possible seizure-like episodes -Full code -Heparin drip for DVT prophylaxis Does have acute on chronic anemia, is on Coumadin, iron studies show evidence of iron deficiency anemia with low ferritin and low iron, Hemoccult stool positive for blood, Protonix, Carafate -Monitor hemoglobin Concerns for slow GI bleed -Protonix, Carafate -1 dose IV Venofer here -1 unit PRBC -Monitor hemodynamics closely -Monitor hemoglobin closely -There is a potential that she might require an EGD on make her n.p.o. midnight just in case, did run the case by general surgery they are in agreement for medical management for now unless unless EGD is required if she does not tolerate anticoagulation recheck hypercoagulability panel Attestations Medical Necessity Statement*: Patient requires hospitalization for slow GI bleed, acute on chronic anemia, iron deficient anemia, recurrent CVA Diagnoses Left arm weakness R29.898 CVA (cerebral vascular accident) I63.9 Antiphospholipid syndrome D68.61 TIA (transient ischemic attack) G45.9 Thrombophilia D68.59 Subtherapeutic anticoagulation Z51.81; Z79.01 Acute anemia D64.9 GI bleed K92.2
[2023-01-21 18:54] LABS: Partial Thromboplastin Time 228.2 SECONDS (23.9-36.7)
[2023-01-21] MEDS: atorvastatin 40 mg Tablet 20 MG PO (20:52)
[2023-01-21] MEDS: duloxetine 60 mg Capsule PO (20:52)
[2023-01-21] MEDS: ALPRAZolam 0.5 mg Tablet 1 MG PO (20:52)
[2023-01-21] MEDS: ropinirole 0.25 mg Tablet 0.5 MG PO (20:52)
[2023-01-21 22:42] LABS: Hematocrit 28.3 % (37.0-47.0); Hemoglobin 8.7 g/dL (11.5-15.3)
[2023-01-21 22:54] LABS: Partial Thromboplastin Time 43.8 SECONDS (23.9-36.7)
[2023-01-21] MEDS: acetaminophen 325 mg Tablet 650 MG PO (23:08)
[2023-01-22] VITALS (9 sets, daily range): BP systolic 110–147; BP diastolic 72–86; PULSE 84–100; RESP 16–18; TEMP 36.4–36.9; O2SAT 94–98
[2023-01-22] MEDS: LORazepam 2 mg/mL INJ 1 mL 1 MG IVP (02:06)
[2023-01-22 02:13] LABS: Hemoglobin 8.7 g/dL (11.5-15.3)
[2023-01-22] MEDS: heparin drip 25,000 UNIT/500 ML PREMIX 30 UNIT IV (03:12)
[2023-01-22] MEDS: sucralfate 1 gm Tablet PO ×2 (05:26→17:10)
[2023-01-22 05:35] LABS: Basophils % 0.2 %; Eosinophils # 0.1 10^3/uL (0.0-0.8); Eosinophils % 2.6 %; Hematocrit 29.1 % (37.0-47.0); Hemoglobin 9.1 g/dL (11.5-15.3); Lymphocytes # 1.5 10^3/uL (0.8-4.8); Lymphocytes % 26.9 %; Mean Corpuscular HGB Conc 31.3 g/dL (30.0-36.0); Mean Corpuscular Hemoglobin 26.9 pg (28.0-34.0); Mean Corpuscular Volume 86.1 fl (81-99); Mean Platelet Volume 9.3 fL (7.4-10.4); Monocytes # 0.5 10^3/uL (0.2-0.9); Monocytes % 9.2 %; Neutrophils # 3.28 10^3/uL (1.8-7.7); Neutrophils % 60.5 %; Nucleated Red Blood Cells % 0 %; Platelet Count 297 10^3/cmm (130-400); Red Blood Count 3.38 10^6/uL (4.1-5.3); Red Cell Distribution Width 17.3 % (12.1-15.1); White Blood Count 5.4 10^3/uL (4.0-10.0)
[2023-01-22 05:53] LABS: INR 1.76 (0.8-1.2)
[2023-01-22 05:58] LABS: Magnesium 2.4 mg/dL (1.7-2.3); Phosphorus 2.1 mg/dL (2.5-4.5)
[2023-01-22 05:59] LABS: Anion Gap 12.4 (5-19); Carbon Dioxide 26 mmol/L (22-29); Chloride 106 mmol/L (98-107); Glucose 117 mg/dL (65-115); Potassium 3.4 mmol/L (3.5-5.1); Sodium 141 mmol/L (136-145)
[2023-01-22] MEDS: pantoprazole 40 mg SDV IVP ×2 (06:06→17:10)
[2023-01-22 06:34] LABS: Partial Thromboplastin Time 246.4 SECONDS (23.9-36.7)
[2023-01-22 06:40] LABS: Blood Urea Nitrogen 8 mg/dL (8-23); Calcium 8.7 mg/dL (8.5-10.5); Osmolality Calculated 291 mOsm/kg (285-295)
[2023-01-22] MEDS: levETIRAcetam 500 mg Tablet PO ×2 (09:59→17:10)
[2023-01-22] MEDS: aspirin 81 mg EC Tablet PO (09:59)
[2023-01-22 11:05] LABS: COMPLEMENT COMPONENT C3C 136 mg/dL (83-193); COMPLEMENT COMPONENT C4C 28 mg/dL (15-57)
[2023-01-22 11:13] LABS: COMPLEMENT, TOTAL (CH50) 57 U/mL (31-60)
[2023-01-22 11:23] LABS: Partial Thromboplastin Time 46.9 SECONDS (23.9-36.7)
--- NOTE | 2023-01-22 12:21 | PC.NURSE ---
PTT result back, Dr. Montez notified, orders received to start heparin protocol again, but no bolus's of heparin to be given.
--- NOTE | 2023-01-22 12:23 | PC.SOCIAL ---
IMM Update pg 2 of IMM updated and reviewed w/ patient. Copy provided and copy dated, initialed and placed in chart.
[2023-01-22] MEDS: ALPRAZolam 0.5 mg Tablet 1 MG PO ×2 (12:27→20:35)
[2023-01-22] MEDS: acetaminophen 325 mg Tablet 650 MG PO (12:27)
--- NOTE | 2023-01-22 12:32 | PC.CHAP ---
Pastoral Care Encounter/Spiritual Assessment Type of Contact [] Declined dehydrogenation converter helper visit [] Patient/Family/Request visit [] Outpatient visit [] Follow-up visit [] Physician referral [] Code/Alert [x] Routine visit [] Staff referral [] Actively dying [] Patient sleeping [] Family support [] [] Out of room [] Palliative care [] [] Receiving care in room [] Pre-surgical visit [] Trauma [] Long length of stay [] ICU visit [] Other: Relational/Emotional Strength [] Patient feels connected with others/family/visitors/staff [] Distress [] Loneliness/isolation [] Abandonment Spirituality of Patient x[x] Person of Viry [] Attends Taoist of their Viry [x] Believes in Prayer [] Reads Bible or Christian materials [] There are Spiritual issues to be addressed Clinical Admissions Manager Interventions [x] Prayer [x] Active listening x[] Non-anxious presence [x] Spiritual/emotional support [] Crisis/trauma care [] Spiritual counseling [] Bereavement support [] Provided bereavement packet [] Provided Bible/devotional materials [x] Provided toy/stuffed animal, coloring book to patient or family member [] Provided Communion [] Anointing/Benicia [] Salvation [x] Completed spiritual assessment [] Other: Impact on Illness or Injury [] Angry [] Fearful [] Anxious [] Often cries [] Exhaustion [] Unable to work [] Unable to attend restorationist [] Unable to walk/stand [] Unable to read [] Unable to drive [] Unable to eat/drink [] Unable to sleep [] Unable to be with family [] Patient intubated [] Other: Summary Time spent with patient
[2023-01-22 14:25] LABS: CENTROMERE B ANTIBODY >8.0 POS AI (<1.0 NEG); JO-1 ANTIBODY <1.0 NEG AI (<1.0 NEG); RNP ANTIBODY <1.0 NEG AI (<1.0 NEG); SCL-70 ANTIBODY <1.0 NEG AI (<1.0 NEG); SJOGREN'S ANTIBODY (SS-A) <1.0 NEG AI (<1.0 NEG); SM ANTIBODY <1.0 NEG AI (<1.0 NEG); SS-B <1.0 NEG AI (<1.0 NEG)
[2023-01-22 15:10] LABS: THYROID PEROXIDASE ANTIBODIES 1 IU/mL (<9)
--- NOTE | 2023-01-22 20:10 | P.PN_ITS ---
Subjective Subjective: Denies new symptoms. Last blood in bowel movement on Sunday. So far no further bowel movements or blood. Left upper extremity doing about the same. Having trouble extending her fingers. Vitals/I&O/Wt Last Vital Signs Temp 97.8 F 01/22/23 16:00 Pulse 87 01/22/23 16:00 Resp 18 01/22/23 16:00 BP 110/78 01/22/23 16:00 Pulse Ox 95 01/22/23 16:00 O2 Del Method 01/22/23 16:00 FiO2 21 01/20/23 00:15 01/22/23 01/22/23 01/22/23 06:59 14:59 22:59 Intake Total 220.5 / 1390.5 480 / 480 60 / 540 Balance 220.5 / 1390.5 480 / 480 60 / 540 Physical Exam Narrative: Accompanied by son. Const: COMMON NORMALS: patient oriented x3 and alert GENERAL APPEARANCE: cooperative ORIENTATION/CONSCIOUSNESS: Yes awake OTHER: Wearing BiPAP. HENMT: COMMON NORMALS: oropharynx normal Neck/C-Spine: COMMON NORMALS: no JVD Resp: COMMON NORMALS: normal respiratory effort and clear to auscultation bilaterally AUSCULTATION: clear to auscultation bilaterally Cardio: COMMON NORMALS: no JVD, regular rhythm, S1 normal heart sound present, S2 normal heart sound present and No murmurs present (Cardio) RHYTHM: regular rhythm HEART SOUNDS: S1 normal heart sound present and S2 normal heart sound present GI: COMMON NORMALS: Normal to inspection, nondistended, normoactive bowel sounds present, Soft to palpation and non-tender PALPATION: Yes Soft to palpation Extremity: COMMON NORMALS: no joint enlargement and no pedal edema Neuro: COMMON NORMALS: patient oriented x3 SENSORIUM/ORIENTATION: Yes alert OTHER: Left upper extremity weakness, able to flex fingers slightly, not extend. Elevate arm. Elevate left lower extremity. Skin: COMMON NORMALS: no rashes or lesions noted GENERAL SKIN EXAM: no rashes or lesions noted Data 01/22/23 05:26 01/22/23 05:26 A&P Assessment and plan (1) Left arm weakness: (2) CVA (cerebral vascular accident): (3) Antiphospholipid syndrome: (4) TIA (transient ischemic attack): (5) Thrombophilia: (6) Subtherapeutic anticoagulation: (7) Acute anemia: (8) GI bleed: Plan Recurrent CVA in the setting of antiphospholipid syndrome. Recently difficulties with anticoagulation with bleeding after hemorrhoidectomy. Reviewed INR, it is gradually coming up, currently up to 1.76. Heparin drip noted held with supratherapeutic PTT, however, prior value noted subtherapeutic, and before that supratherapeutic again. It appears that anytime he becomes supratherapeutic it is being held, then resumed at same or higher rate. Discussed with nursing staff, currently rate will be decreased which should hopefully help get it into the therapeutic range. Continue Nicole PTT. Discussed with nighttime hospitalist and pharmacy. Continue warfarin, reassess INR. Discussed with hematology, difficulties with anticoagulation, recently anemia, requesting antiphospholipid antibody panel, beta-2 glycoprotein panel. Discussed with [facility], renal currently find indication for transfer, although may be revisited if having issue with trying to reestablish therapeutic ant icoagulation. Likely will benefit from outpatient follow-up with coagulation specialist at [facility] after discharge. Does have acute on chronic anemia, is on Coumadin, iron studies show evidence of iron deficiency anemia with low ferritin and low iron, Hemoccult stool positive for blood, Protonix, Carafate -Monitor hemoglobin Concerns for slow GI bleed: Hemoglobin today doing well, 9.1. Trial of clear liquids discussed with her and family. Repeat blood counts requested. -Protonix, Carafate Attestations Medical Necessity Statement*: Continue admission for management of hypercoagulable state with antiphospholipid syndrome, resumption of anticoagulation with anemia, recent bleeding, at risk of further bleeding, at risk of further significant complications if subtherapeutic anticoagulation with antiphospholipid syndrome, CVA. Diagnoses Left arm weakness R29.898 CVA (cerebral vascular accident) I63.9 Antiphospholipid syndrome D68.61 TIA (transient ischemic attack) G45.9 Thrombophilia D68.59 Subtherapeutic anticoagulation Z51.81; Z79.01 Acute anemia D64.9 GI bleed K92.2
[2023-01-22] MEDS: ropinirole 0.25 mg Tablet 0.5 MG PO (20:28)
[2023-01-22] MEDS: duloxetine 60 mg Capsule PO (20:28)
[2023-01-22] MEDS: atorvastatin 40 mg Tablet 20 MG PO (20:28)
[2023-01-22] MEDS: HYDROcodone-acetaminophen 7.5-325 mg Tablet 1 TAB PO (20:34)
[2023-01-23] VITALS (15 sets, daily range): BP systolic 116–143; BP diastolic 68–90; PULSE 70–96; RESP 15–17; TEMP 36.2–36.8; O2SAT 91–97
[2023-01-23] MEDS: acetaminophen 325 mg Tablet 650 MG PO (04:25)
[2023-01-23] MEDS: pantoprazole 40 mg SDV IVP ×2 (04:36→18:20)
[2023-01-23 04:52] LABS: Basophils % 0.4 %; Eosinophils # 0.1 10^3/uL (0.0-0.8); Eosinophils % 1.6 %; Hematocrit 31.9 % (37.0-47.0); Hemoglobin 9.7 g/dL (11.5-15.3); Lymphocytes # 1.4 10^3/uL (0.8-4.8); Lymphocytes % 25.6 %; Mean Corpuscular HGB Conc 30.4 g/dL (30.0-36.0); Mean Corpuscular Hemoglobin 27.1 pg (28.0-34.0); Mean Corpuscular Volume 89.1 fl (81-99); Monocytes # 0.6 10^3/uL (0.2-0.9); Monocytes % 10.5 %; Neutrophils # 3.38 10^3/uL (1.8-7.7); Neutrophils % 61.5 %; Nucleated Red Blood Cells % 0 %; Platelet Count 316 10^3/cmm (130-400); Red Blood Count 3.58 10^6/uL (4.1-5.3); Red Cell Distribution Width 17.2 % (12.1-15.1); White Blood Count 5.5 10^3/uL (4.0-10.0)
[2023-01-23 05:17] LABS: Anion Gap 12.6 (5-19); Blood Urea Nitrogen 7 mg/dL (8-23); Carbon Dioxide 25 mmol/L (22-29); Chloride 108 mmol/L (98-107); Glomerular Filtration Rate 85.4 mL/min (90-130); Glucose 122 mg/dL (65-115); Magnesium 2.3 mg/dL (1.7-2.3); Osmolality Calculated 293 mOsm/kg (285-295); Phosphorus 2.5 mg/dL (2.5-4.5); Potassium 3.6 mmol/L (3.5-5.1); Sodium 142 mmol/L (136-145)
[2023-01-23 05:25] LABS: INR 1.33 (0.8-1.2)
[2023-01-23 05:26] LABS: Partial Thromboplastin Time 51.3 SECONDS (23.9-36.7)
[2023-01-23] MEDS: sucralfate 1 gm Tablet PO ×2 (05:30→18:20)
[2023-01-23] MEDS: aspirin 81 mg EC Tablet PO (08:54)
[2023-01-23] MEDS: levETIRAcetam 500 mg Tablet PO ×2 (08:54→18:20)
[2023-01-23] MEDS: heparin drip 25,000 UNIT/500 ML PREMIX 22 UNIT IV (08:55)
[2023-01-23 11:46] LABS: ANA PATTERN Nuclear, Centromere; ANA SCREEN, IFA POSITIVE (NEGATIVE)
[2023-01-23 12:44] LABS: Partial Thromboplastin Time 129.2 SECONDS (23.9-36.7)
[2023-01-23] MEDS: ALPRAZolam 0.5 mg Tablet 1 MG PO (19:52)
[2023-01-23 20:09] LABS: Partial Thromboplastin Time 93.7 SECONDS (23.9-36.7)
--- NOTE | 2023-01-23 20:55 | P.PN_ITS ---
Subjective Subjective: She denies any new symptoms today. No change in her neurologic condition. Denies further bleeding so far. Last time had bleeding was on Sunday. Discussed with her and drop in INR down to 1.33. Discussed with them yesterday's discussion also with hematology and [facility]. Vitals/I&O/Wt Last Vital Signs Temp 98.3 F 01/23/23 19:09 Pulse 96 01/23/23 19:09 Resp 16 01/23/23 19:09 BP 123/80 01/23/23 19:09 Pulse Ox 94 01/23/23 19:09 O2 Del Method 01/23/23 19:09 FiO2 21 01/20/23 00:15 01/23/23 01/23/23 01/23/23 06:59 14:59 22:59 Intake Total 156.333 / 1073.133 302.333 / 302.333 494.467 / 796.800 Balance 156.333 / 1073.133 302.333 / 302.333 494.467 / 796.800 Physical Exam Narrative: Accompanied by . Const: COMMON NORMALS: patient oriented x3 and alert GENERAL APPEARANCE: cooperative ORIENTATION/CONSCIOUSNESS: Yes awake OTHER: Wearing BiPAP. HENMT: COMMON NORMALS: oropharynx normal Neck/C-Spine: COMMON NORMALS: no JVD Resp: COMMON NORMALS: normal respiratory effort and clear to auscultation bilaterally AUSCULTATION: clear to auscultation bilaterally Cardio: COMMON NORMALS: no JVD, regular rhythm, S1 normal heart sound present, S2 normal heart sound present and No murmurs present (Cardio) RHYTHM: regular rhythm HEART SOUNDS: S1 normal heart sound present and S2 normal heart sound present GI: COMMON NORMALS: Normal to inspection, nondistended, normoactive bowel sounds present, Soft to palpation and non-tender PALPATION: Yes Soft to palpation Extremity: COMMON NORMALS: no joint enlargement and no pedal edema Neuro: COMMON NORMALS: patient oriented x3 SENSORIUM/ORIENTATION: Yes alert OTHER: Left upper extremity weakness, able to flex fingers slightly, not extend. Elevate arm. Elevate left lower extremity. Skin: COMMON NORMALS: no rashes or lesions noted GENERAL SKIN EXAM: no rashes or lesions noted Data 01/23/23 04:37 01/23/23 04:37 A&P Assessment and plan (1) Left arm weakness: (2) CVA (cerebral vascular accident): (3) Antiphospholipid syndrome: (4) TIA (transient ischemic attack): (5) Thrombophilia: (6) Subtherapeutic anticoagulation: (7) Acute anemia: (8) GI bleed: Plan Recurrent CVA in the setting of antiphospholipid syndrome. Recently difficulties with anticoagulation with bleeding after hemorrhoidectomy. Reviewed PTT from this morning afternoon and evening, with adjustment of the dose now appears to be having more within therapeutic range. Continue heparin drip bridging. Follow-up PTT. Discussed with her decrease in INR. With recent bleeding she is at risk of bleeding again, however, as INR is not progressing in the desired direct discussed with her increasing dose of warfarin. Adjusted warfarin to 6 mg. Continue follow-up INR At risk of bleeding with multiple recent bleeding episodes, additionally otherwise at risk of thrombosis with antiphospholipid syndrome, recently recurrent CVA. Follow-up CBC requested. Does have acute on chronic anemia, is on Coumadin, iron studies show evidence of iron deficiency anemia with low ferritin and low iron, Hemoccult stool positive for blood, Protonix, Carafate -Monitor hemoglobin So far doing okay with trial of clear liquids would like to advance to full liquids. Continue Protonix, Carafate Magnesium level appreciated, will not order any additional imaging. Potassium soft 3.6. Requesting follow-up BMP, at risk of electrolyte abnormalities with limited oral intake. Attestations Medical Necessity Statement*: Continue admission for escalation of anti coagulation with warfarin to therapeutic INR in a lady with antiphospholipid syndrome, recently recurrent CVA, needing bridging with heparin drip, at risk of bleeding also with recent recurrent rectal hemorrhage after hemorrhoidectomy surgery. Diagnoses Left arm weakness R29.898 CVA (cerebral vascular accident) I63.9 Antiphospholipid syndrome D68.61 TIA (transient ischemic attack) G45.9 Thrombophilia D68.59 Subtherapeutic anticoagulation Z51.81; Z79.01 Acute anemia D64.9 GI bleed K92.2
[2023-01-23] MEDS: duloxetine 60 mg Capsule PO (21:37)
[2023-01-23] MEDS: ropinirole 0.25 mg Tablet 0.5 MG PO (21:37)
[2023-01-23] MEDS: atorvastatin 40 mg Tablet 20 MG PO (21:37)
[2023-01-23] MEDS: HYDROcodone-acetaminophen 7.5-325 mg Tablet 1 TAB PO (23:36)
[2023-01-24] VITALS (11 sets, daily range): BP systolic 104–144; BP diastolic 71–88; PULSE 66–120; RESP 15–18; TEMP 36.4–36.8; O2SAT 92–97
[2023-01-24 02:23] LABS: Basophils % 0.4 %; Eosinophils # 0.1 10^3/uL (0.0-0.8); Eosinophils % 2.4 %; Hematocrit 30.2 % (37.0-47.0); Hemoglobin 9.4 g/dL (11.5-15.3); Lymphocytes # 1.5 10^3/uL (0.8-4.8); Lymphocytes % 26.7 %; Mean Corpuscular HGB Conc 31.1 g/dL (30.0-36.0); Mean Corpuscular Volume 86.8 fl (81-99); Mean Platelet Volume 10.3 fL (7.4-10.4); Monocytes # 0.5 10^3/uL (0.2-0.9); Monocytes % 9.3 %; Neutrophils # 3.36 10^3/uL (1.8-7.7); Neutrophils % 60.8 %; Nucleated Red Blood Cells % 0 %; Platelet Count 279 10^3/cmm (130-400); Red Blood Count 3.48 10^6/uL (4.1-5.3); Red Cell Distribution Width 16.6 % (12.1-15.1); White Blood Count 5.5 10^3/uL (4.0-10.0)
[2023-01-24 02:43] LABS: Partial Thromboplastin Time 67.2 SECONDS (23.9-36.7)
[2023-01-24 02:45] LABS: Anion Gap 14.5 (5-19); Blood Urea Nitrogen 7 mg/dL (8-23); Carbon Dioxide 24 mmol/L (22-29); Chloride 104 mmol/L (98-107); Glomerular Filtration Rate 85.4 mL/min (90-130); Glucose 96 mg/dL (65-115); Osmolality Calculated 286 mOsm/kg (285-295); Potassium 3.5 mmol/L (3.5-5.1); Sodium 139 mmol/L (136-145)
[2023-01-24 02:53] LABS: INR 1.36 (0.8-1.2)
[2023-01-24] MEDS: sucralfate 1 gm Tablet PO ×2 (05:20→17:01)
[2023-01-24] MEDS: pantoprazole 40 mg SDV IVP ×2 (05:20→16:52)
[2023-01-24] MEDS: acetaminophen 325 mg Tablet 650 MG PO ×2 (05:37→15:11)
[2023-01-24 08:40] LABS: Partial Thromboplastin Time 68.8 SECONDS (23.9-36.7)
[2023-01-24] MEDS: levETIRAcetam 500 mg Tablet PO ×2 (09:01→17:01)
[2023-01-24] MEDS: aspirin 81 mg EC Tablet PO (09:01)
[2023-01-24] MEDS: heparin drip 25,000 UNIT/500 ML PREMIX 17 UNIT IV (13:37)
[2023-01-24] MEDS: warfarin 3 mg Tablet 6 MG PO (15:11)
[2023-01-24] MEDS: warfarin 1 mg Tablet 0.5 MG PO (15:12)
[2023-01-24 17:44] LABS: Partial Thromboplastin Time 76.1 SECONDS (23.9-36.7)
--- NOTE | 2023-01-24 19:57 | PM.PN ---
Subjective Subjective: States today she is doing okay. Denies any new symptoms. No bloody bowel movements. Discussed with her INR but similar, slightly higher than yesterday 1.36. Vitals/I&O/Wt Last Vital Signs Temp 98.2 F 01/24/23 19:10 Pulse 97 01/24/23 19:10 Resp 15 01/24/23 19:10 BP 133/75 01/24/23 19:10 Pulse Ox 97 01/24/23 19:10 O2 Del Method 01/24/23 19:10 FiO2 21 01/20/23 00:15 01/24/23 01/24/23 01/24/23 06:59 14:59 22:59 Intake Total 965.533 / 965.533 240 / 1205.533 Output Total 100 / 100 Balance 965.533 / 965.533 140 / 1105.533 Physical Exam Const: COMMON NORMALS: patient oriented x3 and alert GENERAL APPEARANCE: cooperative ORIENTATION/CONSCIOUSNESS: Yes awake OTHER: Wearing BiPAP. HENMT: COMMON NORMALS: oropharynx normal Neck/C-Spine: COMMON NORMALS: no JVD Resp: COMMON NORMALS: normal respiratory effort and clear to auscultation bilaterally AUSCULTATION: clear to auscultation bilaterally Cardio: COMMON NORMALS: no JVD, regular rhythm, S1 normal heart sound present, S2 normal heart sound present and No murmurs present (Cardio) RHYTHM: regular rhythm HEART SOUNDS: S1 normal heart sound present and S2 normal heart sound present GI: COMMON NORMALS: Normal to inspection, nondistended, normoactive bowel sounds present, Soft to palpation and non-tender PALPATION: Yes Soft to palpation Extremity: COMMON NORMALS: no joint enlargement and no pedal edema Neuro: COMMON NORMALS: patient oriented x3 SENSORIUM/ORIENTATION: Yes alert OTHER: Left upper extremity weakness, able to flex fingers slightly, not extend. Elevate arm. Elevate left lower extremity. Skin: COMMON NORMALS: no rashes or lesions noted GENERAL SKIN EXAM: no rashes or lesions noted Data 01/24/23 02:05 01/24/23 02:05 A&P Assessment and plan (1) Left arm weakness: (2) CVA (cerebral vascular accident): (3) Antiphospholipid syndrome: (4) TIA (transient ischemic attack): (5) Thrombophilia: (6) Subtherapeutic anticoagulation: (7) Acute anemia: (8) GI bleed: Plan Recurrent CVA in the setting of antiphospholipid syndrome. Still 1.36. Discussed with her elevation of warfarin up to 6.5 mg. Subsequently on discussion with pharmacy it appears that every time warfarin was ordered oral dose changed it was automatically placed on hold for some reason by the EMR so I am told she did not receive warfarin yesterday or day before. Discussed with pharmacy who is placing the order for 6.5 mg this afternoon. We will follow-up INR in the morning. Follow-up hemoglobin as she is at risk of bleeding, although hemoglobin has been doing better, 9.4 today. Continue bridging with heparin drip. Follow-up EKGs. Reviewed PTTs shows they are now in therapeutic range with optimization of rate adjustment. Continue follow-up INR, PTT At risk of bleeding with multiple recent bleeding episodes, additionally otherwise at risk of thrombosis with antiphospholipid syndrome, recently recurrent CVA. Follow-up CBC requested. Does have acute on chronic anemia, is on Coumadin, iron studies show evidence of iron deficiency anemia with low ferritin and low iron, Hemoccult stool positive for blood, Protonix, Carafate -Monitor hemoglobin Advance to full liquids. Discussed with speech therapy. Speech may advance to regular diet once ready. We will try GI soft for now. Continue Protonix, Carafate Potassium soft 3.5. Requesting follow-up BMP, at risk of electrolyte abnormalities while advancing diet. Attestations Medical Necessity Statement*: Continue admission for assessment management after CVA with coagulopathy, at risk of further clotting, as well as the risk of bleeding with recent recurrent bleeds after hemorrhoidectomy requiring heparin bridging while escalating warfarin to therapeutic INR. Diagnoses Left arm weakness R29.898 CVA (cerebral vascular accident) I63.9 Antiphospholipid syndrome D68.61 TIA (transient ischemic attack) G45.9 Thrombophilia D68.59 Subtherapeutic anticoagulation Z51.81; Z79.01 Acute anemia D64.9 GI bleed K92.2
[2023-01-24] MEDS: ALPRAZolam 0.5 mg Tablet 1 MG PO (20:39)
[2023-01-24] MEDS: HYDROcodone-acetaminophen 7.5-325 mg Tablet 1 TAB PO (20:39)
[2023-01-24] MEDS: ropinirole 0.25 mg Tablet 0.5 MG PO (20:39)
[2023-01-24] MEDS: atorvastatin 40 mg Tablet 20 MG PO (20:39)
[2023-01-24] MEDS: duloxetine 60 mg Capsule PO (20:39)
[2023-01-25] VITALS (10 sets, daily range): BP systolic 118–138; BP diastolic 76–91; PULSE 69–110; RESP 14–17; TEMP 36.5–36.9; O2SAT 91–95
[2023-01-25 00:51] LABS: Basophils % 0.5 %; Eosinophils # 0.1 10^3/uL (0.0-0.8); Eosinophils % 2.1 %; Hematocrit 33.2 % (37.0-47.0); Hemoglobin 10.2 g/dL (11.5-15.3); Lymphocytes # 1.7 10^3/uL (0.8-4.8); Lymphocytes % 29.6 %; Mean Corpuscular HGB Conc 30.7 g/dL (30.0-36.0); Mean Corpuscular Hemoglobin 27.2 pg (28.0-34.0); Mean Corpuscular Volume 88.5 fl (81-99); Mean Platelet Volume 10.5 fL (7.4-10.4); Monocytes # 0.6 10^3/uL (0.2-0.9); Monocytes % 9.4 %; Neutrophils # 3.39 10^3/uL (1.8-7.7); Neutrophils % 57.9 %; Nucleated Red Blood Cells % 0 %; Platelet Count 300 10^3/cmm (130-400); Red Blood Count 3.75 10^6/uL (4.1-5.3); Red Cell Distribution Width 16.1 % (12.1-15.1); White Blood Count 5.9 10^3/uL (4.0-10.0)
[2023-01-25 00:55] LABS: Blood Urea Nitrogen 9 mg/dL (8-23); Calcium 9.2 mg/dL (8.5-10.5); Carbon Dioxide 24 mmol/L (22-29); Chloride 103 mmol/L (98-107); Glomerular Filtration Rate 85.4 mL/min (90-130); Glucose 106 mg/dL (65-115); Osmolality Calculated 287 mOsm/kg (285-295); Sodium 139 mmol/L (136-145)
[2023-01-25 00:58] LABS: Partial Thromboplastin Time 75.4 SECONDS (23.9-36.7)
[2023-01-25 01:09] LABS: INR 1.15 (0.8-1.2)
[2023-01-25 01:50] LABS: DNA AB (DS) CRITHIDIA,IFA NEGATIVE (NEGATIVE)
[2023-01-25] MEDS: sucralfate 1 gm Tablet PO ×2 (05:21→18:16)
[2023-01-25] MEDS: pantoprazole 40 mg SDV IVP ×2 (05:21→17:17)
[2023-01-25] MEDS: acetaminophen 325 mg Tablet 650 MG PO (05:41)
[2023-01-25] MEDS: ALPRAZolam 0.5 mg Tablet 1 MG PO ×2 (05:41→20:35)
[2023-01-25 08:28] LABS: Partial Thromboplastin Time 37.2 SECONDS (23.9-36.7)
[2023-01-25] MEDS: aspirin 81 mg EC Tablet PO (09:32)
[2023-01-25] MEDS: levETIRAcetam 500 mg Tablet PO ×2 (09:32→18:15)
--- NOTE | 2023-01-25 11:55 | PC.OT ---
OT TREATMENT ATTEMPTED TWICE THIS A.M. PATIENT UNABLE TO MAINTAIN ALERTNESS/STAY AWAKE TO PARTICIPATE IN SKILLED OT TREATMENT. WILL ATTEMPT AGAIN IN P.M.
[2023-01-25 13:50] LABS: Partial Thromboplastin Time 78.3 SECONDS (23.9-36.7)
[2023-01-25] MEDS: warfarin 2.5 mg Tablet PO (14:55)
[2023-01-25] MEDS: warfarin 2 mg Tablet 4 MG PO (14:56)
--- NOTE | 2023-01-25 20:03 | P.PN_ITS ---
Subjective Subjective: Denies any new symptoms. No further bleeding. Vitals/I&O/Wt Last Vital Signs Temp 98.5 F 01/25/23 16:00 Pulse 81 01/25/23 16:00 Resp 14 01/25/23 16:00 BP 120/76 01/25/23 16:00 Pulse Ox 91 01/25/23 15:19 O2 Del Method 01/25/23 15:19 FiO2 21 01/20/23 00:15 01/25/23 01/25/23 01/25/23 06:59 14:59 22:59 Intake Total 240 / 240 740 / 980 Balance 240 / 240 740 / 980 Physical Exam Const: COMMON NORMALS: patient oriented x3 and alert GENERAL APPEARANCE: cooperative ORIENTATION/CONSCIOUSNESS: Yes awake HENMT: COMMON NORMALS: oropharynx normal Neck/C-Spine: COMMON NORMALS: no JVD Resp: COMMON NORMALS: normal respiratory effort and clear to auscultation bilaterally AUSCULTATION: clear to auscultation bilaterally Cardio: COMMON NORMALS: no JVD, regular rhythm, S1 normal heart sound present, S2 normal heart sound present and No murmurs present (Cardio) RHYTHM: regular rhythm HEART SOUNDS: S1 normal heart sound present and S2 normal heart sound present GI: COMMON NORMALS: Normal to inspection, nondistended, normoactive bowel tamra nds present, Soft to palpation and non-tender PALPATION: Yes Soft to palp ation Extremity: COMMON NORMALS: no joint enlargement and no pedal edema Neuro: COMMON NORMALS: patient oriented x3 SENSORIUM/ORIENTATION: Yes alert OTHER: Left upper extremity weakness, able to flex fingers slightly, not extend. Elevate arm. Elevate left lower extremity. Skin: COMMON NORMALS: no rashes or lesions noted GENERAL SKIN EXAM: no rashes or lesions noted Data 01/25/23 00:29 01/25/23 00:29 A&P Assessment and plan (1) Left arm weakness: (2) CVA (cerebral vascular accident): (3) Antiphospholipid syndrome: (4) TIA (transient ischemic attack): (5) Thrombophilia: (6) Subtherapeutic anticoagulation: (7) Acute anemia: (8) GI bleed: Plan Recurrent CVA in the setting of antiphospholipid syndrome. Yesterday on discussion with pharmacy it is found that anytime warfarin was entered or order was changed it was placed on hold by another physician's account after about a minute for unclear reason. Appears to be an EMR glitch. Discussed with her the [facility] that she has not received warfarin prior to yesterday. She is now in therapeutic range on heparin drip. Discussed warfarin was escalated to 6.5 and will continue with current dose. Follow-up INR requested. So far has had no further bleeding. Hemoglobin is continuing to improve, c urrently up to 10.2. At risk of bleeding with multiple recent bleeding episodes, additionally otherw ise at risk of thrombosis with antiphospholipid syndrome, recently recurrent CVA. Follow-up CBC requested. Does have acute on chronic anemia, is on Coumadin, iron studies show evidence of iron deficiency anemia with low ferritin and low iron, Hemoccult stool positive for blood, Protonix, Carafate -Monitor hemoglobin Advance to full liquids. Discussed with speech therapy. Speech may advance to regular diet once ready. We will try GI soft for now. Continue Protonix, Carafate Potassium noted improved To 4. Attestations Medical Necessity Statement*: Continue admission for ramp-up of anticoagulation with bridging due to risk of CVA, on the other hand also risk of bleeding with multiple recent bleeding episodes, anemia requiring transfusion after hemorrhoidectomy. Diagnoses Left arm weakness R29.898 CVA (cerebral vascular accident) I63.9 Antiphospholipid syndrome D68.61 TIA (transient ischemic attack) G45.9 Thrombophilia D68.59 Subtherapeutic anticoagulation Z51.81; Z79.01 Acute anemia D64.9 GI bleed K92.2
[2023-01-25] MEDS: ropinirole 0.25 mg Tablet 0.5 MG PO (20:35)
[2023-01-25] MEDS: duloxetine 60 mg Capsule PO (20:36)
[2023-01-25] MEDS: atorvastatin 40 mg Tablet 20 MG PO (20:36)
[2023-01-25] MEDS: heparin drip 25,000 UNIT/500 ML PREMIX 15 UNIT IV (20:44)
[2023-01-25] MEDS: HYDROcodone-acetaminophen 7.5-325 mg Tablet 1 TAB PO (21:12)
[2023-01-25 21:16] LABS: Partial Thromboplastin Time 56.3 SECONDS (23.9-36.7)
[2023-01-26] VITALS (11 sets, daily range): BP systolic 102–144; BP diastolic 66–90; PULSE 74–99; RESP 15–18; TEMP 36.3–36.7; O2SAT 93–95
[2023-01-26] MEDS: acetaminophen 325 mg Tablet 650 MG PO ×2 (03:41→15:56)
[2023-01-26 03:46] LABS: Basophils % 0.2 %; Eosinophils # 0.1 10^3/uL (0.0-0.8); Eosinophils % 1.5 %; Hematocrit 30.6 % (37.0-47.0); Hemoglobin 9.4 g/dL (11.5-15.3); Lymphocytes # 1.1 10^3/uL (0.8-4.8); Lymphocytes % 23.2 %; Mean Corpuscular HGB Conc 30.7 g/dL (30.0-36.0); Mean Corpuscular Hemoglobin 26.9 pg (28.0-34.0); Mean Corpuscular Volume 87.4 fl (81-99); Mean Platelet Volume 10.6 fL (7.4-10.4); Monocytes # 0.5 10^3/uL (0.2-0.9); Monocytes % 9.9 %; Neutrophils # 3.03 10^3/uL (1.8-7.7); Nucleated Red Blood Cells % 0 %; Platelet Count 230 10^3/cmm (130-400); Red Cell Distribution Width 15.7 % (12.1-15.1); White Blood Count 4.7 10^3/uL (4.0-10.0)
[2023-01-26 04:04] LABS: INR 1.48 (0.8-1.2); Partial Thromboplastin Time 68.4 SECONDS (23.9-36.7)
[2023-01-26 04:09] LABS: Anion Gap 12.4 (5-19); Blood Urea Nitrogen 8 mg/dL (8-23); Calcium 8.9 mg/dL (8.5-10.5); Carbon Dioxide 27 mmol/L (22-29); Chloride 105 mmol/L (98-107); Glomerular Filtration Rate 85.4 mL/min (90-130); Glucose 103 mg/dL (65-115); Osmolality Calculated 291 mOsm/kg (285-295); Potassium 3.4 mmol/L (3.5-5.1); Sodium 141 mmol/L (136-145)
[2023-01-26] MEDS: pantoprazole 40 mg SDV IVP ×2 (05:23→16:09)
[2023-01-26] MEDS: sucralfate 1 gm Tablet PO ×2 (05:23→17:27)
[2023-01-26 07:19] LABS: CARDIOLIPIN AB (IGA) >65.0 APL-U/mL; CARDIOLIPIN AB (IGG) >112.0 GPL-U/mL; CARDIOLIPIN AB (IGM) 9.1 MPL-U/mL
[2023-01-26] MEDS: levETIRAcetam 500 mg Tablet PO ×2 (08:18→17:27)
[2023-01-26] MEDS: aspirin 81 mg EC Tablet PO (08:18)
[2023-01-26 11:11] LABS: Partial Thromboplastin Time 64.5 SECONDS (23.9-36.7)
--- NOTE | 2023-01-26 11:32 | PC.SOCIAL ---
IMM UPDATED IMM dated and initialed and copy given to patient and placed in chart.
[2023-01-26] MEDS: warfarin 2.5 mg Tablet PO (13:53)
[2023-01-26] MEDS: warfarin 2 mg Tablet 4 MG PO (13:53)
[2023-01-26] MEDS: docusate sodium 100 mg Capsule PO ×2 (16:16→23:56)
[2023-01-26 18:53] LABS: Partial Thromboplastin Time 60.9 SECONDS (23.9-36.7)
[2023-01-26] MEDS: HYDROcodone-acetaminophen 7.5-325 mg Tablet 1 TAB PO (19:38)
[2023-01-26] MEDS: duloxetine 60 mg Capsule PO (19:38)
[2023-01-26] MEDS: ALPRAZolam 0.5 mg Tablet 1 MG PO (19:38)
[2023-01-26] MEDS: ropinirole 0.25 mg Tablet 0.5 MG PO (19:38)
[2023-01-26] MEDS: atorvastatin 40 mg Tablet 20 MG PO (19:38)
--- NOTE | 2023-01-26 22:45 | P.PN_ITS ---
Subjective Subjective: He reports she is doing okay. She did have a small bowel movement, did have a small amount of blood in the pad later. Vitals/I&O/Wt Last Vital Signs Temp 97.6 F 01/26/23 19:34 Pulse 99 01/26/23 19:34 Resp 15 01/26/23 19:34 BP 130/86 01/26/23 19:34 Pulse Ox 94 01/26/23 19:34 O2 Del Method 01/26/23 19:34 FiO2 21 01/20/23 00:15 01/26/23 01/26/23 01/26/23 06:59 14:59 22:59 Intake Total 500 / 1480 720 / 720 240 / 960 Balance 500 / 1480 720 / 720 240 / 960 Physical Exam Const: COMMON NORMALS: patient oriented x3 and alert GENERAL APPEARANCE: cooperative ORIENTATION/CONSCIOUSNESS: Yes awake HENMT: COMMON NORMALS: oropharynx normal Neck/C-Spine: COMMON NORMALS: no JVD Resp: COMMON NORMALS: normal respiratory effort and clear to auscultation bilaterally AUSCULTATION: clear to auscultation bilaterally Cardio: COMMON NORMALS: no JVD, regular rhythm, S1 normal heart sound present, S2 normal heart sound present and No murmurs present (Cardio) RHYTHM: regular rhythm HEART SOUNDS: S1 normal heart sound present and S2 normal heart sound present GI: COMMON NORMALS: Normal to inspection, nondistended, normoactive bowel sounds present, Soft to palpation and non-tender PALPATION: Yes Soft to palpation Extremity: COMMON NORMALS: no joint enlargement and no pedal edema Neuro: COMMON NORMALS: patient oriented x3 SENSORIUM/ORIENTATION: Yes alert OTHER: Left upper extremity weakness, able to flex fingers slightly, not extend. El evate arm. Elevate left lower extremity. Skin: COMMON NORMALS: no rashes or lesions noted GENERAL SKIN EXAM: no rashes or lesions noted Data 01/26/23 03:38 01/26/23 03:38 A&P Assessment and plan (1) Left arm weakness: (2) CVA (cerebral vascular accident): (3) Antiphospholipid syndrome: (4) TIA (transient ischemic attack): (5) Thrombophilia: (6) Subtherapeutic anticoagulation: (7) Acute anemia: (8) GI bleed: Plan Recurrent CVA in the setting of antiphospholipid syndrome. With resumed warfarin INR now improving, today up to 1.48. Follow-up INR requested. Had a small amount of bleeding on the pad after a bowel movement today. Change stool softener to scheduled. Follow-up CBC requested. At risk of bleeding with multiple recent bleeding episodes, additionally otherwise at risk of thrombosis with antiphospholipid syndrome, recently recurrent CVA. Follow-up CBC requested. Does have acute on chronic anemia, is on Coumadin, iron studies show evidence of iron deficiency anemia with low ferritin and low iron, Hemoccult stool positive for blood, Protonix, Carafate -Monitor hemoglobin Advance to full liquids. Discussed with speech therapy. Speech may advance to regular diet once ready. We will try GI soft for now. Continue Protonix, Carafate Potassium noted improved To 4. Attestations Medical Necessity Statement*: Continue admission for ramp-up of anticoagulation with warfarin to therapeutic INR with recent CVA with underlying antiphospholipid syndrome, risk of clotting, risk of bleeding with recent hemorrhoidal surgery and multiple episodes of bleeding. Diagnoses Left arm weakness R29.898 CVA (cerebral vascular accident) I63.9 Antiphospholipid syndrome D68.61 TIA (transient ischemic attack) G45.9 Thrombophilia D68.59 Subtherapeutic anticoagulation Z51.81; Z79.01 Acute anemia D64.9 GI bleed K92.2
[2023-01-27] VITALS (7 sets, daily range): BP systolic 100–127; BP diastolic 66–84; PULSE 67–90; RESP 16–18; TEMP 36.4–36.7; O2SAT 94–98
[2023-01-27 01:29] LABS: Partial Thromboplastin Time 64.2 SECONDS (23.9-36.7)
[2023-01-27] MEDS: acetaminophen 325 mg Tablet 650 MG PO (01:39)
[2023-01-27] MEDS: ALPRAZolam 0.5 mg Tablet 1 MG PO ×2 (03:13→21:11)
[2023-01-27 05:00] LABS: Basophils % 0.2 %; Eosinophils # 0.1 10^3/uL (0.0-0.8); Eosinophils % 1.8 %; Hematocrit 30.7 % (37.0-47.0); Hemoglobin 9.3 g/dL (11.5-15.3); Lymphocytes # 1.4 10^3/uL (0.8-4.8); Lymphocytes % 30.5 %; Mean Corpuscular HGB Conc 30.3 g/dL (30.0-36.0); Mean Corpuscular Hemoglobin 26.4 pg (28.0-34.0); Mean Corpuscular Volume 87.2 fl (81-99); Mean Platelet Volume 10.5 fL (7.4-10.4); Monocytes # 0.5 10^3/uL (0.2-0.9); Monocytes % 10.6 %; Neutrophils # 2.49 10^3/uL (1.8-7.7); Neutrophils % 56.4 %; Nucleated Red Blood Cells % 0 %; Platelet Count 213 10^3/cmm (130-400); Red Blood Count 3.52 10^6/uL (4.1-5.3); Red Cell Distribution Width 15.4 % (12.1-15.1); White Blood Count 4.4 10^3/uL (4.0-10.0)
[2023-01-27 05:10] LABS: INR 1.59 (0.8-1.2)
[2023-01-27 05:11] LABS: Partial Thromboplastin Time 60.9 SECONDS (23.9-36.7)
[2023-01-27] MEDS: sucralfate 1 gm Tablet PO ×2 (05:47→17:36)
[2023-01-27] MEDS: pantoprazole 40 mg SDV IVP ×2 (05:49→17:46)
[2023-01-27] MEDS: heparin drip 25,000 UNIT/500 ML PREMIX 15 UNIT IV (05:49)
[2023-01-27] MEDS: HYDROcodone-acetaminophen 7.5-325 mg Tablet 1 TAB PO ×2 (05:50→21:11)
[2023-01-27] MEDS: aspirin 81 mg EC Tablet PO (09:14)
[2023-01-27] MEDS: levETIRAcetam 500 mg Tablet PO ×2 (09:14→17:36)
[2023-01-27] MEDS: docusate sodium 100 mg Capsule PO ×2 (09:14→17:36)
[2023-01-27] MEDS: warfarin 2 mg Tablet 4 MG PO (14:54)
[2023-01-27] MEDS: warfarin 2.5 mg Tablet PO (14:55)
[2023-01-27 18:49] LABS: INR 1.62 (0.8-1.2)
[2023-01-27] MEDS: ropinirole 0.25 mg Tablet 0.5 MG PO (21:07)
[2023-01-27] MEDS: atorvastatin 40 mg Tablet 20 MG PO (21:08)
[2023-01-27] MEDS: zolpidem 5 mg Tablet PO (21:08)
[2023-01-27] MEDS: duloxetine 60 mg Capsule PO (21:08)
--- NOTE | 2023-01-27 21:09 | PM.PN ---
Subjective Subjective: Reports she did not sleep well last night. Request for sleep aid. Discussed with her Ambien at lower dose to hopefully avoid some of the adverse effects. Vitals/I&O/Wt Last Vital Signs Temp 98.0 F 01/27/23 19:15 Pulse 86 01/27/23 19:15 Resp 18 01/27/23 19:15 BP 100/66 01/27/23 19:15 Pulse Ox 94 01/27/23 19:15 O2 Del Method 01/27/23 03:15 FiO2 21 01/20/23 00:15 01/27/23 01/27/23 01/27/23 06:59 14:59 22:59 Intake Total 496.25 / 1456.25 960 / 960 436.75 / 1396.75 Balance 496.25 / 1456.25 960 / 960 436.75 / 1396.75 Physical Exam Const: COMMON NORMALS: patient oriented x3 and alert GENERAL APPEARANCE: cooperative ORIENTATION/CONSCIOUSNESS: Yes awake OTHER: Wearing CPAP. HENMT: COMMON NORMALS: oropharynx normal Neck/C-Spine: COMMON NORMALS: no JVD Resp: COMMON NORMALS: normal respiratory effort and clear to auscultation bilaterally AUSCULTATION: clear to auscultation bilaterally Cardio: COMMON NORMALS: no JVD, regular rhythm, S1 normal heart sound present, S2 normal heart sound present and No murmurs present (Cardio) RHYTHM: regular rhythm HEART SOUNDS: S1 normal heart sound present and S2 normal heart sound present GI: COMMON NORMALS: Normal to inspection, nondistended, normoactive bowel sounds present, Soft to palpation and non-tender PALPATION: Yes Soft to palpation Extremity: COMMON NORMALS: no joint enlargement and no pedal edema Neuro: COMMON NORMALS: patient oriented x3 SENSORIUM/ORIENTATION: Yes alert OTHER: Left upper extremity weakness, able to flex fingers slightly, not extend. Elevate arm. Elevate left lower extremity. Skin: COMMON NORMALS: no rashes or lesions noted GENERAL SKIN EXAM: no rashes or lesions noted Data 01/27/23 04:08 01/26/23 03:38 A&P Assessment and plan (1) Left arm weakness: (2) CVA (cerebral vascular accident): (3) Antiphospholipid syndrome: (4) TIA (transient ischemic attack): (5) Thrombophilia: (6) Subtherapeutic anticoagulation: (7) Acute anemia: (8) GI bleed: Plan Recurrent CVA in the setting of antiphospholipid syndrome. Discussed with her, INR improving up to 1.60. PTT noted is therapeutic. Follow-up INR requested. Had a small amount of bleeding on the pad after a bowel movement today. Change stool softener to scheduled. Follow-up CBC requested. Insomnia: Requested Ambien At risk of bleeding with multiple recent bleeding episodes, additionally otherwise at risk of thrombosis with antiphospholipid syndrome, recently recurrent CVA. Follow-up CBC requested. Does have acute on chronic anemia, is on Coumadin, iron studies show evidence of iron deficiency anemia with low ferritin and low iron, Hemoccult stool positive for blood, Protonix, Carafate -Monitor hemoglobin Advance to full liquids. Discussed with speech therapy. Speech may advance to regular diet once ready. We will try GI soft for now. Continue Protonix, Carafate Potassium noted improved To 4. Attestations Medical Necessity Statement*: Continue admission for escalation of anticoagulation with risk of bleeding and clotting. Diagnoses Left arm weakness R29.898 CVA (cerebral vascular accident) I63.9 Antiphospholipid syndrome D68.61 TIA (transient ischemic attack) G45.9 Thrombophilia D68.59 Subtherapeutic anticoagulation Z51.81; Z79.01 Acute anemia D64.9 GI bleed K92.2
[2023-01-28] VITALS (8 sets, daily range): BP systolic 100–135; BP diastolic 68–91; PULSE 73–90; RESP 16–19; TEMP 36.1–37.1; O2SAT 93–99
[2023-01-28 04:23] LABS: INR 1.71 (0.8-1.2)
[2023-01-28 04:24] LABS: Partial Thromboplastin Time 109.6 SECONDS (23.9-36.7)
[2023-01-28 05:24] LABS: Basophils % 0.2 %; Eosinophils # 0.1 10^3/uL (0.0-0.8); Eosinophils % 2.3 %; Hematocrit 29.9 % (37.0-47.0); Hemoglobin 8.9 g/dL (11.5-15.3); Lymphocytes # 1.3 10^3/uL (0.8-4.8); Lymphocytes % 30.7 %; Mean Corpuscular HGB Conc 29.8 g/dL (30.0-36.0); Mean Corpuscular Hemoglobin 26.3 pg (28.0-34.0); Mean Corpuscular Volume 88.5 fl (81-99); Mean Platelet Volume 11.2 fL (7.4-10.4); Monocytes # 0.5 10^3/uL (0.2-0.9); Neutrophils # 2.37 10^3/uL (1.8-7.7); Neutrophils % 55.6 %; Nucleated Red Blood Cells % 0 %; Platelet Count 183 10^3/cmm (130-400); Red Blood Count 3.38 10^6/uL (4.1-5.3); Red Cell Distribution Width 15.2 % (12.1-15.1); White Blood Count 4.3 10^3/uL (4.0-10.0)
[2023-01-28] MEDS: pantoprazole 40 mg SDV IVP ×2 (05:40→17:33)
[2023-01-28] MEDS: sucralfate 1 gm Tablet PO ×2 (05:54→17:37)
[2023-01-28] MEDS: docusate sodium 100 mg Capsule PO ×2 (08:21→17:37)
[2023-01-28] MEDS: levETIRAcetam 500 mg Tablet PO ×2 (08:21→17:37)
[2023-01-28] MEDS: aspirin 81 mg EC Tablet PO (08:21)
--- NOTE | 2023-01-28 10:00 | PC.SOCIAL ---
Imm update Imm updated with patient by phone. Copy of page 2 provided. Patient verbalized understanding. Copy in chart initialed, dated and timed.
[2023-01-28 10:30] LABS: Beta 2 Glycoprotein IGA >65.0 U/mL (<20.0); Beta 2 Glycoprotein IGG >112.0 U/mL (<20.0); Beta 2 Glycoprotein IGM 11.3 U/mL (<20.0)
[2023-01-28 10:44] LABS: Partial Thromboplastin Time 82.2 SECONDS (23.9-36.7)
[2023-01-28 10:53] LABS: INR 1.66 (0.8-1.2)
[2023-01-28] MEDS: heparin drip 25,000 UNIT/500 ML PREMIX 13 UNIT IV (11:00)
--- NOTE | 2023-01-28 11:44 | ECG_ITS ---
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 Measurements Intervals [place] Rate: 77 P: 32 [place]: 168 QRS: 12 QRSD: 109 T: 28 QT: 373 QTc: 423 Interpretive Statements SINUS RHYTHM LOW QRS VOLTAGE IN PRECORDIAL LEADS [QRS DEFLECTION < 1.0 mV IN CHEST LEADS] Compared to ECG 01/19/2023 10:39:33 No significant changes Electronically Signed On 01-28-2023 21:23:41 [employer] by Vijay Dupont M.D. [id number]
[2023-01-28 11:49] LABS: Glucose Point of Care 190 mg/dL (70-110)
--- NOTE | 2023-01-28 12:04 | XRR_ITS ---
PROCEDURE INFORMATION: Exam: XR Chest Exam date and time: 01/29/2023 12:42 AM Age: 62 years old Clinical indication: Other: Dizziness; Additional info: Dizzy TECHNIQUE: Imaging protocol: Radiologic exam of the chest. Views: 1 view. COMPARISON: CR XR chest 1V portable [id number] 11/17/2020 12:27 PM FINDINGS: Lungs: No consolidation. Unchanged small chronic nodular density projecting over the right mid lung, measuring approximally 1.0 cm. Multiple surgical clips are again seen projecting over the right chest. Pleural spaces: Unremarkable. No pleural effusion. No pneumothorax. Heart/Mediastinum: Stable cardiomediastinal silhouette. Bones/joints: Unremarkable. XR/XR chest 1V portable [id number] IMPRESSION: No evidence of active cardiopulmonary disease.
[2023-01-28 12:46] LABS: Hematocrit 31.1 % (37.0-47.0); Hemoglobin 9.6 g/dL (11.5-15.3)
[2023-01-28] MEDS: acetaminophen 325 mg Tablet 650 MG PO (13:43)
[2023-01-28] MEDS: warfarin 2.5 mg Tablet PO (14:16)
[2023-01-28] MEDS: warfarin 2 mg Tablet 4 MG PO (14:16)
--- NOTE | 2023-01-28 18:29 | PC.NURSE ---
Pt is currently laying in bed. An order was put in for lab to draw APTT at 1700. This nurse informed the charge nurse that this had not been done yet. Charge told this nurse lab had maxed out on sticks. Charge nurse then contacted lab. Lab came to draw and were unsuccessful. This nurse informed charge of this. Pt has no complaints/needs at this time. Call light and bedside table are within reach. Pt has been using [facility]SC.
[2023-01-28 19:41] LABS: Troponin T (5th) Once 10 ng/L (0-10)
[2023-01-28 19:43] LABS: Partial Thromboplastin Time 52.1 SECONDS (23.9-36.7)
--- NOTE | 2023-01-28 21:23 | P.PN_ITS ---
Subjective Subjective: She felt slightly dizzy this morning. Then when was taken to the bathroom she had slumped down, her legs gave out under her. Denies fainting. Denies injury. She does report having episodes of small amount of blood in the toilet bowl. No active bleeding was seen when examined. Vitals/I&O/Wt Last Vital Signs Temp 98.1 F 01/28/23 12:00 Pulse 82 01/28/23 16:00 Resp 16 01/28/23 16:00 BP 122/71 01/28/23 16:00 Pulse Ox 95 01/28/23 16:00 O2 Del Method 01/27/23 03:15 FiO2 21 01/20/23 00:15 01/28/23 01/28/23 01/28/23 06:59 14:59 22:59 Intake Total 698.25 / 2215.00 565 / 565 597.433 / 1162.433 Output Total 200 / 200 Balance 698.25 / 2215.00 565 / 565 397.433 / 962.433 Physical Exam Const: COMMON NORMALS: patient oriented x3 and alert GENERAL APPEARANCE: cooperative ORIENTATION/CONSCIOUSNESS: Yes awake OTHER: Wearing CPAP. HENMT: COMMON NORMALS: oropharynx normal Neck/C-Spine: COMMON NORMALS: no JVD Resp: COMMON NORMALS: normal respiratory effort and clear to auscultation bilaterally AUSCULTATION: clear to auscultation bilaterally Cardio: COMMON NORMALS: no JVD, regular rhythm, S1 normal heart sound present, S2 normal heart sound present and No murmurs present (Cardio) RHYTHM: regular rhythm HEART SOUNDS: S1 normal heart sound present and S2 normal heart sound present GI: COMMON NORMALS: Normal to inspection, nondistended, normoactive bowel sounds present, Soft to palpation and non-tender PALPATION: Yes Soft to palpation Extremity: COMMON NORMALS: no joint enlargement and no pedal edema Neuro: COMMON NORMALS: patient oriented x3 SENSORIUM/ORIENTATION: Yes alert OTHER: Left upper extremity weakness, able to flex fingers slightly, not extend. Elevate arm. Elevate left lower extremity. Skin: COMMON NORMALS: no rashes or lesions noted GENERAL SKIN EXAM: no rashes or lesions noted Data 01/28/23 12:17 01/26/23 03:38 A&P Assessment and plan (1) Left arm weakness: (2) CVA (cerebral vascular accident): (3) Antiphospholipid syndrome: (4) TIA (transient ischemic attack): (5) Thrombophilia: (6) Subtherapeutic anticoagulation: (7) Acute anemia: (8) GI bleed: Plan Recurrent CVA in the setting of antiphospholipid syndrome. INR noted 1.7 this morning, down to 1.66 this evening. Continue at higher dose warfarin 6.5 mg, but will not increase further due to episode of small bright red blood per rectum today. Discussed with her also slight decrease in hemoglobin this morning 8.9, but on recheck is 9.6. Follow-up CBC requested. PTT noted is therapeutic. Follow-up INR requested. Please note there appears to have been difficulty with PTT machine and readouts. Stool softener scheduled. Follow-up: Legs gave out under when going to the bathroom. She was waiting quite a bit to go and lost control her bladder on the way. She has been having difficulties walking as per family, with her left leg being weaker than before the recent stroke. Extremities otherwise appear perfused. Did report feeling slightly dizzy earlier. Recheck hemoglobin requested, noted 9.6. Troponin chec ked, not elevated. EKG on my interpretation shows sinus rhythm. Telemetry reviewed, no arrhythmia. Glucose 190. No hypotension. Subsequently she is doing better. Please reassess her condition. Continue PT. Requested for bedside commode. Up only with assist. Fall precautions. Insomnia: Added Ambien At risk of bleeding with multiple recent bleeding episodes, additionally otherwise at risk of thrombosis with antiphospholipid syndrome, recently recurrent CVA. Had small amount of bright red blood per rectum. Please follow-up. If recurrent consider again surgical consultation for local therapy with thrombin. Follow-up CBC requested. Does have acute on chronic anemia, is on Coumadin, iron studies show evidence of iron deficiency anemia with low ferritin and low iron, Hemoccult stool positive for blood, Protonix, Carafate -Monitor hemoglobin Continue Protonix, Carafate Attestations Medical Necessity Statement*: Continue admission for bridging anticoagulation with elevated risk of bleeding and clotting with antiphospholipid syndrome, recent recurrent bleeds after hemorrhoidectomy. Diagnoses Left arm weakness R29.898 CVA (cerebral vascular accident) I63.9 Antiphospholipid syndrome D68.61 TIA (transient ischemic attack) G45.9 Thrombophilia D68.59 Subtherapeutic anticoagulation Z51.81; Z79.01 Acute anemia D64.9 GI bleed K92.2
[2023-01-28] MEDS: zolpidem 5 mg Tablet PO (21:26)
[2023-01-28] MEDS: ropinirole 0.25 mg Tablet 0.5 MG PO (21:26)
[2023-01-28] MEDS: atorvastatin 40 mg Tablet 20 MG PO (21:26)
[2023-01-28] MEDS: duloxetine 60 mg Capsule PO (21:28)
[2023-01-29] VITALS (8 sets, daily range): BP systolic 110–141; BP diastolic 75–92; PULSE 78–110; RESP 16–20; TEMP 36.5–37; O2SAT 92–96
[2023-01-29] MEDS: acetaminophen 325 mg Tablet 650 MG PO ×2 (01:05→11:40)
[2023-01-29 02:35] LABS: Basophils % 0.5 %; Eosinophils # 0.1 10^3/uL (0.0-0.8); Eosinophils % 1.6 %; Hematocrit 29.5 % (37.0-47.0); Hemoglobin 9.3 g/dL (11.5-15.3); Lymphocytes # 1.3 10^3/uL (0.8-4.8); Lymphocytes % 28.6 %; Mean Corpuscular HGB Conc 31.5 g/dL (30.0-36.0); Mean Corpuscular Hemoglobin 27.4 pg (28.0-34.0); Monocytes # 0.3 10^3/uL (0.2-0.9); Monocytes % 7.7 %; Neutrophils # 2.72 10^3/uL (1.8-7.7); Neutrophils % 61.6 %; Nucleated Red Blood Cells % 0 %; Platelet Count 177 10^3/cmm (130-400); Red Blood Count 3.39 10^6/uL (4.1-5.3); Red Cell Distribution Width 14.9 % (12.1-15.1); White Blood Count 4.4 10^3/uL (4.0-10.0)
[2023-01-29 03:54] LABS: Partial Thromboplastin Time 62.6 SECONDS (23.9-36.7)
[2023-01-29] MEDS: pantoprazole 40 mg SDV IVP ×2 (04:37→17:37)
[2023-01-29] MEDS: ALPRAZolam 0.5 mg Tablet 1 MG PO (04:59)
[2023-01-29] MEDS: sucralfate 1 gm Tablet PO ×2 (05:00→17:28)
[2023-01-29] MEDS: aspirin 81 mg EC Tablet PO (08:53)
[2023-01-29] MEDS: docusate sodium 100 mg Capsule PO ×2 (08:53→17:28)
[2023-01-29] MEDS: levETIRAcetam 500 mg Tablet PO ×2 (08:53→17:28)
--- NOTE | 2023-01-29 11:42 | PC.OT ---
OT TREATMENT ATTEMPTED THIS A.M.; PATIENT UNABLE TO AWAKEN TO PARTICIPATE. WILL ATTEMPT AGAIN IN P.M.
[2023-01-29] MEDS: warfarin 2.5 mg Tablet PO (14:14)
[2023-01-29] MEDS: warfarin 2 mg Tablet 4 MG PO (14:14)
[2023-01-29 15:53] LABS: Partial Thromboplastin Time 73.1 SECONDS (23.9-36.7)
--- NOTE | 2023-01-29 16:04 | P.PN_ITS ---
Subjective Subjective: Patient was seen this morning, her tiredness has improved, she has not ambulated since her episode yesterday, but denies any weakness in her legs, her left hand continues to have weakness, but she feels improving but not as much as the last time she was discharged from the hospital Vitals/I&O/Wt Last Vital Signs Temp 97.9 F 01/29/23 16:00 Pulse 82 01/29/23 16:00 Resp 20 H 01/29/23 16:00 BP 110/77 01/29/23 16:00 Pulse Ox 92 01/29/23 16:00 O2 Del Method 01/29/23 16:00 FiO2 21 01/20/23 00:15 01/29/23 01/29/23 01/29/23 06:59 14:59 22:59 Intake Total 360 / 360 Balance 360 / 360 Physical Exam Const: COMMON NORMALS: no acute distress and patient oriented x3 Resp: COMMON NORMALS: normal respiratory effort, No retractions, No use of accessory muscles and clear to auscultation bilaterally AUSCULTATION: clear to auscultation bilaterally Cardio: COMMON NORMALS: regular rate, regular rhythm, S1 normal heart sound present and S2 normal heart sound present RATE: regular rate RHYTHM: regular rhythm HEART SOUNDS: S1 normal heart sound present and S2 normal heart sound present GI: COMMON NORMALS: Normal to inspection, nondistended, normoactive bowel sounds present and non-tender Extremity: COMMON NORMALS: no pedal edema Neuro: COMMON NORMALS: patient oriented x3 Psych: COMMON NORMALS: mental status grossly normal Data 01/29/23 02:20 01/26/23 03:38 A&P Assessment and plan (1) Left arm weakness: (2) CVA (cerebral vascular accident): (3) Antiphospholipid syndrome: (4) TIA (transient ischemic attack): (5) Thrombophilia: (6) Subtherapeutic anticoagulation: (7) Acute anemia: (8) GI bleed: Plan Recurrent CVA in the setting of antiphospholipid syndrome. INR noted 1.80 continue at higher dose warfarin 6.5 mg, but will not increase further due to episode of small bright red blood per rectum today. Discussed with her h emoglobin of 9.3 Follow-up CBC requested. PTT noted is therapeutic. Follow-up INR requested. Please note there appears to have been difficulty with PTT machine and readouts. Stool softener scheduled. Follow-up: Legs gave out under when going to the bathroom. Will monitor today, PT OT she was waiting quite a bit to go and lost control her bladder on the way. She has been having difficulties walking as per family, with her left leg being weaker than before the recent stroke. Extremities otherwise appear perfused. Did report feeling slightly dizzy earlier. Recheck hemoglobin requested, noted 9.6. Troponin checked, not elevated. EKG on my interpretation shows sinus rhythm. Telemetry reviewed, no arrhythmia. Glucose 190. No hypotension. Subsequently she is doing better. Please reassess her condition. Continue PT. Requested for bedside commode. Up only with assist. Fall precautions. Insomnia: Added Ambien At risk of bleeding with multiple recent bleeding episodes, additionally otherwise at risk of thrombosis with antiphospholipid syndrome, recently recurrent CVA. Had small amount of bright red blood per rectum. Please follow-up. If recurrent consider again surgical consultation for local therapy with thrombin. Follow-up CBC requested. Does have acute on chronic anemia, is on Coumadin, iron studies show evidence of iron deficiency anemia with low ferritin and low iron, Hemoccult stool positive for blood, Protonix, Carafate -Monitor hemoglobin Continue Protonix, Carafate Attestations Medical Necessity Statement*: Patient requires hospitalization for CVA Diagnoses Left arm weakness R29.898 CVA (cerebral vascular accident) I63.9 Antiphospholipid syndrome D68.61 TIA (transient ischemic attack) G45.9 Thrombophilia D68.59 Subtherapeutic anticoagulation Z51.81; Z79.01 Acute anemia D64.9 GI bleed K92.2
[2023-01-29] MEDS: ropinirole 0.25 mg Tablet 0.5 MG PO (21:43)
[2023-01-29] MEDS: duloxetine 60 mg Capsule PO (21:44)
[2023-01-29] MEDS: zolpidem 5 mg Tablet PO (21:44)
[2023-01-29] MEDS: atorvastatin 40 mg Tablet 20 MG PO (21:44)
[2023-01-29] MEDS: HYDROcodone-acetaminophen 7.5-325 mg Tablet 1 TAB PO (21:46)
[2023-01-29] MEDS: heparin drip 25,000 UNIT/500 ML PREMIX 15 UNIT IV (22:16)
[2023-01-30 00:10] VITALS: PULSE 89
[2023-01-30] MEDS: acetaminophen 325 mg Tablet 650 MG PO ×2 (01:19→12:46)
[2023-01-30] MEDS: ALPRAZolam 0.5 mg Tablet 1 MG PO (02:33)
[2023-01-30 04:00] VITALS: BP 121/71; PULSE 85; RESP 15; TEMP 36.4; O2SAT 95
[2023-01-30 04:24] LABS: Basophils % 0.4 %; Eosinophils # 0.1 10^3/uL (0.0-0.8); Eosinophils % 1.7 %; Hematocrit 30.3 % (37.0-47.0); Hemoglobin 9.4 g/dL (11.5-15.3); Lymphocytes # 1.6 10^3/uL (0.8-4.8); Lymphocytes % 32.6 %; Mean Corpuscular Hemoglobin 26.7 pg (28.0-34.0); Mean Corpuscular Volume 86.1 fl (81-99); Mean Platelet Volume 11.1 fL (7.4-10.4); Monocytes # 0.5 10^3/uL (0.2-0.9); Monocytes % 10.9 %; Neutrophils # 2.59 10^3/uL (1.8-7.7); Neutrophils % 54.2 %; Nucleated Red Blood Cells % 0 %; Platelet Count 169 10^3/cmm (130-400); Red Blood Count 3.52 10^6/uL (4.1-5.3); Red Cell Distribution Width 14.8 % (12.1-15.1); White Blood Count 4.8 10^3/uL (4.0-10.0)
[2023-01-30] MEDS: pantoprazole 40 mg SDV IVP (04:35)
[2023-01-30 04:36] LABS: Partial Thromboplastin Time 68.7 SECONDS (23.9-36.7)
[2023-01-30 04:45] LABS: Blood Urea Nitrogen 15 mg/dL (8-23); Calcium 8.9 mg/dL (8.5-10.5); Carbon Dioxide 23 mmol/L (22-29); Chloride 104 mmol/L (98-107); Glomerular Filtration Rate 85.4 mL/min (90-130); Glucose 112 mg/dL (65-115); Osmolality Calculated 292 mOsm/kg (285-295); Sodium 140 mmol/L (136-145)
[2023-01-30 04:53] LABS: Anion Gap 16.6 (5-19); Potassium 3.6 mmol/L (3.5-5.1)
[2023-01-30] MEDS: sucralfate 1 gm Tablet PO (05:01)
[2023-01-30 05:05] LABS: INR 1.96 (0.8-1.2)
[2023-01-30 05:41] VITALS: PULSE 87
--- NOTE | 2023-01-30 05:44 | PC.NURSE ---
pt accidentally pulled out her only IV with the heparin drip running. The infusion has been paused in the MAR. The pt request an ultrasound guided IV only. This nurse called house admin to have a nurse come up and place a new IV. The heparin drip will be resumed once a new IV is placed.
[2023-01-30 08:18] VITALS: BP 120/83; PULSE 81; RESP 16; TEMP 36.6; O2SAT 92
[2023-01-30] MEDS: docusate sodium 100 mg Capsule PO (09:36)
[2023-01-30] MEDS: levETIRAcetam 500 mg Tablet PO (09:36)
[2023-01-30] MEDS: aspirin 81 mg EC Tablet PO (09:36)
[2023-01-30] MEDS: enoxaparin 100 mg/mL Syringe 90 MG SUBCUT (09:37)
--- NOTE | 2023-01-30 11:35 | PC.SOCIAL ---
IMM Updated Updated pt on IMM. No questions voiced. Provided pt a copy. Initialed, dated, & timed copy in chart.
--- NOTE | 2023-01-30 12:01 | P.DS_ITS ---
Discharge Providers Date of Admission: 01/19/23 15:36 Date of Discharge: January 30, 2023 Attending Provider at Admission: Arjun Hyatt MD Attending Provider at Discharge: Arjun Hyatt MD Primary Care Provider: Missy Santana MD Diagnoses at Discharge Discharge Diagnosis (1) Left arm weakness: Status: Acute (2) CVA (cerebral vascular accident): Status: Acute (3) Antiphospholipid syndrome: Status: Chronic (4) TIA (transient ischemic attack): Status: Resolved (5) Thrombophilia: Status: Chronic (6) Subtherapeutic anticoagulation: Status: Acute (7) Acute anemia: Status: Acute (8) GI bleed: Status: Acute Reason for Visit Reason for Visit: stroke like symptoms Hospital Course Hospital Course Nai Mancilla is a 62 year old female with a history of breast or, CVA, recurrent CVA, antiphospholipid syndrome history of carotid artery stenosis, this is patient's seventh admission for recurrent CVA symptoms on her left side, since at least 2014.? She has a chronic history of CVA, with left-sided residual deficits left-sided hand weakness she tells me on Sunday she hadleft-sided weakness, with urinary incontinence, she did not want to come to the hospital, and her symptoms resolved.? Today, roughly at 930, she felt that her left side was weak, her left leg and her left hand were weak, her tells me that she had some left facial droop, upon arrival her NIH stroke scale was 6, she is not a tPA candidate as she was on Coumadin, her INR subtherapeutic at 1.56, she is not exactly sure why, currently she is alert oriented x3, no facial droop, no slurring of her words, no significant weakness in the legs she is still having some weakness in her left hand but it significant improved since she came here to the emergency room.? CT of the head was negative for acute bleed.? She is significantly feeling better doing better, she denies a history of seizures, but it is quite strange as if she had urinary incontinence on her strokes episode on Sunday.? Denies any visual deficits, no headache, blurry vision, no productive or receptive aphasia, her only complaint is weakness in her left hand which is not back to normal I have her NIH stroke scale at roughly 3 Patient was admitted to [facility] for recurrent CVA in the setting of antiphospholipid syndrome with subtherapeutic INR, was admitted to [facility] received heparin drip, Coumadin dosing, PT OT, speech therapy eval. On discharge she continues to have left hand weakness, trouble coordinating, continue home health care, home PT OT - Coumadin dosing -5 mg Sunday through Sunday -2.5 mg Sunday and Sunday -Check INR once daily -INR on discharge 2.0, -Hemoglobin discharge 9.4 -Continue therapeutic Lovenox 90 mg/kg subcu every 12 hours -Once your INR is greater than 2 -Continue Lovenox for at least 48 hours -Then can discontinue Lovenox as long as your INR remains greater than 2 -Check your INR daily -Please call Dr. Missy Santana's office for an appointment or Sunday -Please have Missy Santana recheck your hemoglobin on or Sunday -If your hemoglobin is less than 7 please come to the emergency room -Referral has been sent to [facility], [facility] -If you develop bloody or black stools go to the emergency room Patient's hospitalization was complicated with concerns for slow GI bleed, she recently had a hemorrhoidectomy with issues with bleeding, had a colonoscopy with no acute findings Physical Exam Const: COMMON NORMALS: no acute distress and patient oriented x3 Resp: COMMON NORMALS: normal respiratory effort, No retractions, No use of accessory muscles and clear to auscultation bilaterally AUSCULTATION: clear to auscultation bilaterally Cardio: COMMON NORMALS: regular rate, regular rhythm, S1 normal heart sound present and S2 normal heart sound present RATE: regular rate RHYTHM: regular rhythm HEART SOUNDS: S1 normal heart sound present and S2 normal heart sound present GI: COMMON NORMALS: Normal to inspection, nondistended, normoactive bowel sounds present and non-tender Extremity: COMMON NORMALS: no clubbing, cyanosis or edema, no calf tenderness and no pedal edema NARRATIVE EXTREMITY EXAM: Left hand, strength, 3 out of 5, continues to have trouble coordinating Neuro: COMMON NORMALS: patient oriented x3 Psych: COMMON NORMALS: mental status grossly normal Discharge Data Studies Completed and Pending Completed Studies During Hospitalization Category Date Time Status CT head wo con* [id number] Stat Cat Scan 01/19/23 10:34 Completed XR chest 1V portable [id number] Urgent Exams 01/28/23 12:04 Completed Pending at discharge Category Date Time Status Basic Metabolic Panel AM LABS Lab 01/31/23 04:00 Ordered Basic Metabolic Panel AM LABS Lab 02/01/23 04:00 Ordered Complete Blood Count w/Auto AM LABS Lab 01/31/23 04:00 Ordered Complete Blood Count w/Auto AM LABS Lab 02/01/23 04:00 Ordered PTT [Partial Thromboplastin Time] Timed Lab 01/30/23 10:00 Ordered Prothrombin Time INR AM LABS Lab 01/31/23 04:00 Ordered Prothrombin Time INR AM LABS Lab 01/31/23 04:00 Ordered Prothrombin Time INR AM LABS Lab 02/01/23 04:00 Ordered Prothrombin Time INR AM LABS Lab 02/01/23 04:00 Ordered Prothrombin Time INR Timed Lab 01/30/23 13:00 Ordered Radiology Impressions Head CT 01/19/23 10:34 IMPRESSION: 1. No evidence of intracranial hemorrhage or mass effect. 2. Chronic infarct RIGHT MCA territory with encephalomalacia unchanged. 3. Recent infarcts better seen on the MRI January 08, 2023. 4. No new findings today. Chest X-Ray 01/28/23 12:04 IMPRESSION: No evidence of active cardiopulmonary disease. Laboratory Results WBC 4.8 10^3/uL (4.0-10.0) 01/30/23 04:18 RBC 3.52 10^6/uL (4.1-5.3) L 01/30/23 04:18 Hgb 9.4 g/dL (11.5-15.3) L 01/30/23 04:18 Hct 30.3 % (37.0-47.0) L 01/30/23 04:18 MCV 86.1 fl (81-99) 01/30/23 04:18 MCH 26.7 pg (28.0-34.0) L 01/30/23 04:18 MCHC 31.0 g/dL (30.0-36.0) 01/30/23 04:18 RDW 14.8 % (12.1-15.1) 01/30/23 04:18 Plt Count 169 10^3/cmm (130-400) 01/30/23 04:18 MPV 11.1 fL (7.4-10.4) H 01/30/23 04:18 Neut % (Auto) 54.2 % 01/30/23 04:18 Lymph % (Auto) 32.6 % 01/30/23 04:18 [place] % (Auto) 10.9 % 01/30/23 04:18 Eos % (Auto) 1.7 % 01/30/23 04:18 Baso % (Auto) 0.4 % 01/30/23 04:18 Neut # (Auto) 2.59 10^3/uL (1.8-7.7) 01/30/23 04:18 Lymph # (Auto) 1.6 10^3/uL (0.8-4.8) 01/30/23 04:18 [place] # (Auto) 0.5 10^3/uL (0.2-0.9) 01/30/23 04:18 Eos # (Auto) 0.1 10^3/uL (0.0-0.8) 01/30/23 04:18 Baso # (Auto) 0.0 10^3/uL (0.0-0.1) 01/30/23 04:18 Nucleated RBC % (auto) 0 % 01/30/23 04:18 Nucleated RBCs # 0.0 /100WBC 01/30/23 04:18 PT 23.00 SECONDS (12.1-14.9) H 01/30/23 04:18 INR 1.96 (0.8-1.2) H 01/30/23 04:18 APTT 68.7 SECONDS (23.9-36.7) H 01/30/23 04:18 Sodium 140 mmol/L (136-145) 01/30/23 04:18 Potassium 3.6 mmol/L (3.5-5.1) 01/30/23 04:18 Chloride 104 mmol/L (98-107) 01/30/23 04:18 Carbon Dioxide 23 mmol/L (22-29) 01/30/23 04:18 Anion Gap 16.6 (5-19) 01/30/23 04:18 BUN 15 mg/dL (8-23) 01/30/23 04:18 Creatinine 0.7 mg/dL (0.5-0.9) 01/30/23 04:18 GFR Calculation 85.4 mL/min (90-130) L 01/30/23 04:18 Glucose 112 mg/dL (65-115) 01/30/23 04:18 POC Glucose 190 mg/dL (70-110) H 01/28/23 11:46 Estimat Average Glucose 97 01/20/23 05:02 Hemoglobin A1c 5.0 % (4.0-6.0) 01/20/23 05:02 Calculated Osmolality 292 mOsm/kg (285-295) 01/30/23 04:18 Calcium 8.9 mg/dL (8.5-10.5) 01/30/23 04:18 Phosphorus 2.5 mg/dL (2.5-4.5) 01/23/23 04:37 Magnesium 2.3 mg/dL (1.7-2.3) 01/23/23 04:37 Iron 29 ug/dL (37-145) L 01/19/23 10:45 TIBC 347 mcg/dl 01/19/23 10:45 % Saturation 8.3 % (20-50) L 01/19/23 10:45 Unsat Iron Binding 318 ug/dL (112-347) 01/19/23 10:45 Ferritin 37 ng/mL (15-150) 01/19/23 10:45 Total Bilirubin 0.2 mg/dL (0.15-1.2) 01/19/23 10:45 AST 17 U/L (0-32) 01/19/23 10:45 ALT 10 U/L (0-33) 01/19/23 10:45 Alkaline Phosphatase 114 U/L (35-105) H 01/19/23 10:45 Troponin T Gen 5 ng/L 10 ng/L (0-10) 01/28/23 19:00 Total Protein 6.6 g/dL (6.6-8.7) 01/19/23 10:45 Albumin 3.8 g/dL (3.5-5.2) 01/19/23 10:45 Globulin 2.8 g/dL (1.3-4.6) 01/19/23 10:45 Triglycerides 196 mg/dL (0-150) H 01/20/23 05:02 Cholesterol 138 mg/dL (0-200) 01/20/23 05:02 LDL Cholesterol, Calc 66 mg/dL (50-129) 01/20/23 05:02 HDL Cholesterol 33 mg/dL (60-100) L 01/20/23 05:02 LDL/HDL Ratio 2.00 RATIO (0.00-3.22) 01/20/23 05:02 Cholesterol/HDL Ratio 4.18 mg/dL (0.0-4.40) 01/20/23 05:02 TSH 1.68 uIU/mL (0.27-4.20) 01/20/23 05:02 Urine Color Colorless (Yellow) 01/20/23 03:35 Urine Appearance Clear (CLEAR) 01/20/23 03:35 Urine pH 5 (5-7) 01/20/23 03:35 Ur Specific [place] 1.010 (1.005-1.030) 01/20/23 03:35 Urine Protein Neg (Negative) 01/20/23 03:35 Urine Glucose (UA) Norm (Normal) 01/20/23 03:35 Urine Ketones Negative (Negative) 01/20/23 03:35 Urine Blood Neg (Negative) 01/20/23 03:35 Urine Nitrate Negative (Negative) 01/20/23 03:35 Urine Bilirubin Neg (Negative) 01/20/23 03:35 Urine Urobilinogen Neg mg/dL (Negative) 01/20/23 03:35 Ur Leukocyte Esterase 1+ (Negative) H 01/20/23 03:35 Urine RBC 0-4 /hpf (0-2) H 01/20/23 03:35 Urine WBC 5-10 /hpf (0-5) H 01/20/23 03:35 Ur Squamous Epith Cells 0-4 /hpf (0-5) H 01/20/23 03:35 Amorphous Sediment Not Reportable 01/20/23 03:35 Urine Bacteria Trace /hpf (NONE) 01/20/23 03:35 Urine Mucus Trace /hpf 01/20/23 03:35 MUKUL Nuclear Membr Pat Nuclear, centromere A 01/19/23 18:12 MUKUL IFA Animal Tis Ttr 1:320 titer H 01/19/23 18:12 MUKUL IFA Animal Tis Res Positive (NEGATIVE) A 01/19/23 18:12 STEPHEN-1 Antibody <1.0 neg AI (<1.0 NEG) 01/19/23 18:12 SS-A Antibody <1.0 neg AI (<1.0 NEG) 01/19/23 18:12 SS-B Antibody <1.0 neg AI (<1.0 NEG) 01/19/23 18:12 Sm (Mahan) Antibody <1.0 neg AI (<1.0 NEG) 01/19/23 18:12 [employer] Antibody <1.0 neg AI (<1.0 NEG) 01/19/23 18:12 Scl-70 Antibody <1.0 neg AI (<1.0 NEG) 01/19/23 18:12 Anti-ds DNA IgG (Crith) Negative (NEGATIVE) 01/19/23 18:12 Centromere B Antibody >8.0 pos AI (<1.0 NEG) A 01/19/23 18:12 Beta-2-GPI IgG Ab >112.0 U/mL (<20.0) H 01/22/23 10:40 Beta-2-GPI IgA Ab >65.0 U/mL (<20.0) H 01/22/23 10:40 Beta-2-GPI IgM Ab 11.3 U/mL (<20.0) 01/22/23 10:40 Thyroid Peroxidase Ab 1 IU/mL (<9) 01/19/23 18:12 Anti-Cardiolipin IgG Ab >112.0 GPL-U/mL H 01/22/23 10:40 Anti-Cardiolipin IgA Ab >65.0 APL-U/mL H 01/22/23 10:40 Anti-Cardiolipin IgM Ab 9.1 MPL-U/mL 01/22/23 10:40 Complement C3c 136 mg/dL (83-193) 01/19/23 18:12 Complement C4c 28 mg/dL (15-57) 01/19/23 18:12 CH50 Classical Pathway 57 U/mL (31-60) 01/19/23 18:12 Blood Type A Positive 01/21/23 11:09 Rho(D) Type Positive 01/21/23 11:09 Antibody Screen Not Reportable 01/21/23 11:09 PEG Antibody Screen Negative 01/21/23 11:09 Crossmatch See Detail 01/21/23 11:09 Vitals Last Vital Signs Temp 97.8 F 01/30/23 08:18 Pulse 81 01/30/23 08:18 Resp 16 01/30/23 08:18 BP 120/83 01/30/23 08:18 Pulse Ox 92 01/30/23 08:18 O2 Del Method 01/30/23 08:18 FiO2 21 01/20/23 00:15 Discharge Plan Discharge Patient Disposition: Home Condition: Stable Prescriptions: New sucralfate 1 gram Tablet 1 g PO Q12H 30 Days Qty: 60 0RF Protonix 40 mg tablet,delayed release (DR/EC) 40 mg PO BID 30 Days Qty: 60 0RF Lovenox 80 mg/0.8 mL syringe 90 mg SUBCUT Q12H 7 Days Qty: 12.6 0RF Ambien 5 mg tablet 5 mg PO BEDTIME PRN (Reason: insomnia) 7 Days Qty: 7 0RF Continued aspirin 81 mg tablet,delayed release (DR/EC) 81 mg PO DAILY Qty: 30 0RF simvastatin 40 mg tablet 40 mg PO BEDTIME Colace 100 mg Capsule 100 mg PO BID PRN (Reason: Constipation) duloxetine 60 mg capsule,delayed release(DR/EC) 60 mg PO BEDTIME alprazolam 1 mg tablet 1 mg PO TID PRN (Reason: Anxiety) ropinirole 0.25 mg tablet 0.5 mg PO BEDTIME hydrocodone-acetaminophen 7.5-325 mg tablet 1 tab PO BID PRN (Reason: Pain) metoprolol tartrate 25 mg Tablet 12.5 mg PO BID@0900,2100 Qty: 90 0RF Rx Instructions: PT NOT STARTED OF 01/19/23 Changed warfarin 5 mg tablet See Rx Instructions .ROUTE .COMPLEX Qty: 60 0RF Rx Instructions: 5 mg on SUNDAY-SUNDAY 2.5 mg on SUNDAY and SUNDAY Discontinued pseudoephedrine HCl [Sudogest] 30 mg tablet 30 mg PO Q6H PRN (Reason: Nasal Congestion) Discharge Orders: Discharge Order (Routine); Ordered 01/30/23 Ordered By: Arjun Hyatt Referrals: Dr. Stacey Ferro [Other] (Your referral was faxed to Dr. Ferro. They will contact you with appt date/time. If you have not heard from them by 02/05/23, please call them to follow-up. ) Lory Bennett MD [Physician] - 02/26/23 10:00 am Drake Larose DO [Physician] - 02/07/23 3:35 pm Missy Santana MD [Primary Care Provider] - 02/05/23 8:00 am Discharge Diet: Cardiac Discharge Activity: Resume usual activity Patient Instructions: Sucralfate (By mouth), Zolpidem (By mouth), Enoxaparin (By injection), Pantoprazole (By mouth), How to Give a Subcutaneous Injection (GEN), Stroke (GEN), Opioid Safety, Stroke Stoplight Activity Restrictions/Additional Instructions: - Coumadin dosing -5 mg Sunday through Sunday -2.5 mg Sunday and Sunday -Check INR once daily -INR on discharge 2.0, -Hemoglobin discharge 9.4 -Continue therapeutic Lovenox 90 mg/kg subcu every 12 hours -Once your INR is greater than 2 -Continue Lovenox for at least 48 hours -Then can discontinue Lovenox as long as your INR remains greater than 2 -Check your INR daily -Please call Dr. Missy Santana's office for an appointment or Sunday -Please have Missy Santana recheck your hemoglobin on or Sunday -If your hemoglobin is less than 7 please come to the emergency room -Referral has been sent to [facility], [facility] -If you develop bloody or black stools go to the emergency room Discharge Attestations Time Spent in Discharge Care*: greater than 30 min Status at Discharge: Cognitive status at discharge: cognitively intact , Behavioral status at discharge: cooperative , Quality Metrics Clinical Quality Measures [ Venous Thromboembolism { Contraindication to Overlap Therapy: None; Overlap threrpy ordered; VTE Discharge Education: Education about anticoagulant therapy/Care Notes given;}] Coding Level of Care Code 43944 Total time (in minutes) for Discharge: 40 Diagnoses Left arm weakness R29.898 CVA (cerebral vascular accident) I63.9 Antiphospholipid syndrome D68.61 TIA (transient ischemic attack) G45.9 Thrombophilia D68.59 Subtherapeutic anticoagulation Z51.81; Z79.01 Acute anemia D64.9 GI bleed K92.2
[2023-01-30 12:03] LABS: Glucose Point of Care 112 mg/dL (70-110)
[2023-01-30 13:19] VITALS: BP 100/67; PULSE 84; RESP 15; TEMP 36.6; O2SAT 95
[2023-01-30] MEDS: warfarin 5 mg Tablet PO (14:28)
[2023-01-30 15:32] VITALS: BP 100/67; PULSE 84; RESP 15; TEMP 36.6; O2SAT 95
== END 2023-01-30 14:55 | disposition home health service (06) | DRG 65 ==
LOC: ER 15:28 → MEDSURG 01-20 00:03
PROVIDERS: Internal Medicine; Student in an Organized Health Care Education/Training Program; Admitting Provider Family Medicine; Emergency Provider Family Medicine; PCP Family Medicine; Visit Provider Family Medicine
DX: I63.9 Cerebral infarction, unspecified (principal); D62 Acute posthemorrhagic anemia; D68.61 Antiphospholipid syndrome; G81.94 Hemiplegia, unspecified affecting left nondominant side; K62.5 Hemorrhage of anus and rectum; R29.810 Facial weakness; R29.703 NIHSS score 3; R56.9 Unspecified convulsions; K64.9 Unspecified hemorrhoids; D50.9 Iron deficiency anemia, unspecified; I48.91 Unspecified atrial fibrillation; R32 Unspecified urinary incontinence; G47.00 Insomnia, unspecified; R19.5 Other fecal abnormalities; Z85.3 Personal history of malignant neoplasm of breast; Z90.10 Acquired absence of unspecified breast and nipple; Z79.01 Long term (current) use of anticoagulants; Z98.890 Other specified postprocedural states; Z79.82 Long term (current) use of aspirin; Z79.891 Long term (current) use of opiate analgesic
CPT/HCPCS: 36415; 36416; 70450; 71045; 80048; 80053; 80061; 81001; 82274; 82728; 82962; 83036; 83540; 83550; 83735; 84100; 84443; 84484; 85014; 85018; 85025; 85610; 85730; 86146; 86147; 86160; 86162; 86235; 86255; 86376; 86850; 86900; 86920; 92507; 92523; 92526; 92610; 93005; 94664; 96372; 97110; 97112; 97116; 97161; 97166; 97530; 97535; 99285; C9113; J1644; J1650; J1953; J2060; J7030; P9040

== ENCOUNTER → 2023-02-07 15:01 | Outpatient (BNVA) | payer MEDICARE, SELFPAY | PROVIDERS: PCP Family Medicine; Visit Provider Surgery | DX: Z98.890 Other specified postprocedural states (principal); Z87.19 Personal history of other diseases of the digestive system; B37.31 Acute candidiasis of vulva and vagina | CPT/HCPCS: 99203; 99213 ==

== ENCOUNTER 2023-02-23 08:50 | Outpatient (CLI) | payer MEDICARE, SELFPAY ==
[2023-02-23 14:49] LABS: Basophils % 0.4 %; Eosinophils # 0.2 10^3/uL (0.0-0.8); Eosinophils % 3.4 %; Hematocrit 34.6 % (37.0-47.0); Hemoglobin 10.3 g/dL (11.5-15.3); Lymphocytes # 1.3 10^3/uL (0.8-4.8); Lymphocytes % 27.3 %; Mean Corpuscular HGB Conc 29.8 g/dL (30.0-36.0); Mean Corpuscular Hemoglobin 25.4 pg (28.0-34.0); Mean Corpuscular Volume 85.2 fl (81-99); Mean Platelet Volume 11.8 fL (7.4-10.4); Monocytes # 0.6 10^3/uL (0.2-0.9); Monocytes % 12.9 %; Neutrophils # 2.62 10^3/uL (1.8-7.7); Neutrophils % 55.6 %; Nucleated Red Blood Cells % 0 %; Platelet Count 263 10^3/cmm (130-400); Red Blood Count 4.06 10^6/uL (4.1-5.3); Red Cell Distribution Width 14.3 % (12.1-15.1); White Blood Count 4.7 10^3/uL (4.0-10.0)
[2023-02-23 15:34] LABS: Ferritin 11 ng/mL (15-150); Iron 49 ug/dL (37-145); Percent Saturation 12.6 % (20-50); Total Iron Binding Capacity 387 mcg/dl; Unsaturated Iron Binding 338 ug/dL (112-347)
[2023-02-23 15:40] LABS: Folate Level 7.6 ng/mL (4.8-37.3)
[2023-02-23 15:41] LABS: Vitamin B12 393 pg/mL (232-1245)
== END 2023-02-23 08:51 | disposition home or self-care (01) ==
LOC: LAB 05-21 08:51
PROVIDERS: Visit Provider Family Medicine
DX: D64.9 Anemia, unspecified (principal)
CPT/HCPCS: 82607; 82728; 82746; 83540; 83550; 85025

== ENCOUNTER → 2023-02-26 14:50 | Outpatient (BNVA) | payer MEDICARE, SELFPAY | PROVIDERS: PCP Family Medicine; Visit Provider Specialist | DX: I69.354 Hemiplegia and hemiparesis following cerebral infarction affecting left non-dominant side (principal); D68.61 Antiphospholipid syndrome; I65.21 Occlusion and stenosis of right carotid artery; Z79.01 Long term (current) use of anticoagulants | CPT/HCPCS: 99205 ==

== ENCOUNTER 2023-04-19 06:00 | Outpatient (RCR) | payer MEDICARE, SELFPAY | END 2023-04-25 23:59 | disposition home or self-care (01) | LOC: SPT 06:00 | PROVIDERS: Visit Provider Nurse Practitioner Family | DX: R53.1 Weakness (principal); R26.9 Unspecified abnormalities of gait and mobility | CPT/HCPCS: 97110; 97161 ==

== ENCOUNTER 2023-04-26 06:00 | Outpatient (RCR) | payer MEDICARE, SELFPAY | END 2023-05-24 23:59 | disposition home or self-care (01) | LOC: SPT 06:00 | PROVIDERS: Visit Provider Nurse Practitioner Family | DX: R53.1 Weakness (principal); R26.89 Other abnormalities of gait and mobility | CPT/HCPCS: 97110 ==

== ENCOUNTER 2023-05-01 14:04 | Outpatient (RCR) | payer MEDICARE, SELFPAY | END 2023-05-25 23:59 | disposition home or self-care (01) | LOC: SOT 14:04 | PROVIDERS: Visit Provider Nurse Practitioner Family | DX: Z86.73 Personal history of transient ischemic attack (TIA), and cerebral infarction without residual deficits (principal) | CPT/HCPCS: 97167 ==

== ENCOUNTER 2023-05-26 06:00 | Outpatient (RCR) | payer MEDICARE, SELFPAY | END 2023-06-25 23:59 | disposition home or self-care (01) | LOC: SOT 06:00 | PROVIDERS: Visit Provider Nurse Practitioner Family | DX: R53.1 Weakness (principal); R26.89 Other abnormalities of gait and mobility | CPT/HCPCS: 97530 ==

== ENCOUNTER 2023-07-18 15:30 | Oncology outpatient (recurring) (ONCR) | payer MEDICARE, SELFPAY | END 2023-07-26 23:59 | disposition home or self-care (01) | PROVIDERS: Visit Provider Internal Medicine Medical Oncology | DX: D68.61 Antiphospholipid syndrome (principal); Z86.73 Personal history of transient ischemic attack (TIA), and cerebral infarction without residual deficits; Z85.3 Personal history of malignant neoplasm of breast; Z92.21 Personal history of antineoplastic chemotherapy; Z92.3 Personal history of irradiation | CPT/HCPCS: 99203 ==

== ENCOUNTER 2023-10-03 16:21 | Emergency (ER) | payer MEDICARE, SELFPAY ==
[2023-10-03 16:26] VITALS: BP 156/97; PULSE 109; RESP 17; TEMP 36.7; O2SAT 95; BMI 40.4
--- NOTE | 2023-10-03 16:43 | ED_ITS ---
HPI - Neuro Symptoms/Deficit General: Chief Complaint: Neuro Symptoms/Deficit Stated Complaint: stroke symptoms, previous stroke Time Seen by Provider: 10/03/23 16:24 History of Present Illness: 63-year-old female comes in today for concerns of left facial drooping and left arm swelling. Patient was seen at primary care today and discussed the swelling to the left arm which I felt was probably due to decreased activity of the arm. It was noted that patient's warfarin was 1.9. Family is concerned that patient may have a blood clot in the arm or possible new stroke. Patient denies any problems or concerns and states she feels well. Patient states she moves all extremities appropriate for self. No noticeable facial drooping is noted. Patient denies any headache or chest pain. Patient has a history of a CVA in 2010, abnormal clotting factor which requires her to be anticoagulated with warfarin. Breast cancer 2008 2009. Associated symptoms: Deny chest pain Review of Systems General: Reports: 10 or more systems reviewed and unremarkable except in HPI and below Card: Denies: chest pain Resp: Denies: dyspnea Musc: Denies: neck pain or back pain Skin/Breast: Denies: rash PFSH ED PFSH: Medical History Antiphospholipid syndrome Atrial fibrillation Left acute arterial ischemic stroke, MCA (middle cerebral artery) Transient cerebral ischemia Surgical History History of appendectomy History of mastectomy S/P hemorrhoidectomy Family History Other CAD (coronary artery disease) Social History Smoking and tobacco/nicotine status: never used tobacco/nicotine Alcohol intake: never Substance/Drug Use: never Physical Exam Const: COMMON NORMALS: alert HENMT: COMMON NORMALS: normocephalic HEAD & SCALP: normocephalic MOUTH: Normal oral and palatal mucosa present Neck/C-Spine: COMMON NORMALS: full ROM Resp: COMMON NORMALS: normal respiratory effort and clear to auscultation bilaterally AUSCULTATION: clear to auscultation bilaterally Cardio: COMMON NORMALS: regular rate and regular rhythm RATE: regular rate RHYTHM: regular rhythm GI: COMMON NORMALS: Soft to palpation and non-tender PALPATION: Yes Soft to palpation Back/Pelvis: COMMON NORMALS: thoracic and lumbar spine normal to inspection Extremity: COMMON NORMALS: normal to inspection Neuro: SENSORIUM/ORIENTATION: Yes alert Skin: COMMON NORMALS: turgor normal GENERAL SKIN EXAM: turgor normal Course Vital Signs: Vital signs: Vital Signs Temperature 98.1 F 10/03/23 16:26 Pulse Rate 109 H 10/03/23 16:26 Respiratory Rate 17 10/03/23 16:26 Blood Pressure 156/97 10/03/23 16:26 Pulse Oximetry 95 10/03/23 16:26 Oxygen Delivery Me thod Room Air 10/03/23 16:26 MDM - Neuro Symptoms/Deficit Medical Decision Making Patient comes in today for concerns of low INR, swelling in the left upper extremity, and left facial drooping. Patient reports no chest pain, weakness, or shortness of breath. Patient has some mild noticeable left upper extremity swelling with increased swelling in the digits. Pulses are intact. No pain or redness is noted to the arm. No obvious facial drooping is noted. Patient moves all extremities appropriate for self. Vital signs are normal. Differential diagnosis includes but not limited to lymphedema, peripheral edema, stroke syndrome, disuse syndrome. CT of the head A stable exam showing no acute abnormalities. Venous Doppler was negative for DVT. CBC and CMP were unremarkable. INR was 1.5. Reviewed exam with patient and family with recommendations for follow-up with primary care for further instructions return to ED for new concerns. Lab Data 10/03/23 17:22 10/03/23 17:22 Radiology Impressions Venous Duplex 10/03/23 16:52 IMPRESSION: No evidence of deep vein thrombosis. Head CT 10/03/23 16:53 IMPRESSION: Stable exam, no acute intracranial abnormality. Laboratory Results WBC 6.69 10^3/uL (3.29-11.43) 10/03/23 17: RBC 4.47 10^6/uL (3.85-5.65) 10/03/23 17:22 Hgb 13.00 g/dL (11.27-16.99) 10/03/23 17: Hct 40.3 % (36-47) 10/03/23 17: MCV 90.2 fl (85-98) 10/03/23 17: MCH 29.1 pg (27-33) 10/03/23 17: MCHC 32.3 g/dL (30-55) 10/03/23 17: RDW 12.8 % (12.1-15.1) 10/03/23 17: Plt Count 221 10^3/cmm (157-399) 10/03/23 17: MPV 11.0 fL (7.4-10.4) H 10/03/23 17:22 Neut % (Auto) 66.4 % 10/03/23 17: Lymph % (Auto) 21.7 % 10/03/23 17: [place] % (Auto) 9.6 % 10/03/23 17: Eos % (Auto) 1.6 % 10/03/23 17: Baso % (Auto) 0.4 % 10/03/23 17: Neut # (Auto) 4.44 10^3/uL (1.8-7.7) 10/03/23 17: Lymph # (Auto) 1.5 10^3/uL (0.8-4.8) 10/03/23 17:22 [place] # (Auto) 0.6 10^3/uL (0.2-0.9) 10/03/23 17: Eos # (Auto) 0.1 10^3/uL (0.0-0.8) 10/03/23 17: Baso # (Auto) 0.0 10^3/uL (0.0-0.1) 10/03/23 17: Nucleated RBC % (auto) 0 % 10/03/23 17: Nucleated RBCs # 0.0 /100WBC 10/03/23 17: PT 18.60 SECONDS (12.1-14.9) H 10/03/23 17: INR 1.50 (0.8-1.2) H 10/03/23 17:22 Sodium 139 mmol/L (136-145) 10/03/23 17:22 Potassium 3.9 mmol/L (3.5-5.1) 10/03/23 17:22 Chloride 103 mmol/L (98-107) 10/03/23 17:22 Carbon Dioxide 24 mmol/L (22-29) 10/03/23 17:22 Anion Gap 15.9 (5-19) 10/03/23 17:22 BUN 20 mg/dL (8-23) 10/03/23 17:22 Creatinine 0.8 mg/dL (0.5-0.9) 10/03/23 17:22 GFR Calculation 72.9 mL/min (90-130) L 10/03/23 17:22 Glucose 97 mg/dL (65-115) 10/03/23 17:22 Calculated Osmolality 291 mOsm/kg (285-295) 10/03/23 17:22 Calcium 9.4 mg/dL (8.5-10.5) 10/03/23 17:22 Total Bilirubin 0.3 mg/dL (0.15-1.2) 10/03/23 17:22 AST 21 U/L (0-32) 10/03/23 17:22 ALT 22 U/L (0-33) 10/03/23 17:22 Alkaline Phosphatase 133 U/L (35-105) H 10/03/23 17:22 Total Protein 7.6 g/dL (6.6-8.7) 10/03/23 17:22 Albumin 4.5 g/dL (3.5-5.2) 10/03/23 17:22 Globulin 3.1 g/dL (1.3-4.6) 10/03/23 17:22 All radiology interpretation(s) finalized by discharge EKG Data EKG 1: EKG interpretation date: 10/03/23 EKG interpretation time: 17:36 Prior EKG tracings: not available for review Interpretation: EKG shows a sinus rhythm with a regular rate at [address] elevation or other ectopy is noted. No prior exam was available for comparison. Computer generated interpretation: Sinus tachycardia, low QRS voltage in precordial leads, possible anterior myocardial infarction probably old, abnormal rhythm EKG, unconfirmed report. Discharge Plan Discharge Patient Disposition: Home Clinical Impression: Peripheral edema, History of CVA in adulthood Condition: Stable Prescriptions: No Action Xarelto 20 mg tablet 20 mg PO DAILY Qty: 90 3RF Rx Instructions: must administer with evening meal fluconazole 150 mg tablet 150 mg PO DAILY Qty: 1 1RF magnesium oxide 400 mg (241.3 mg magnesium) tablet 400 mg PO DAILY mupirocin 2 % ointment 1 applic topical BID Qty: 15 0RF aspirin 81 mg tablet,delayed release (DR/EC) 81 mg PO DAILY Qty: 30 0RF simvastatin 40 mg tablet 40 mg PO BEDTIME Colace 100 mg Capsule 100 mg PO BID PRN (Reason: Constipation) duloxetine 60 mg capsule,delayed release(DR/EC) 60 mg PO BEDTIME alprazolam 1 mg tablet 1 mg PO TID PRN (Reason: Anxiety) warfarin 5 mg tablet See Rx Instructions .ROUTE .COMPLEX Qty: 60 0RF Rx Instructions: 5 mg on SUNDAY-SUNDAY 2.5 mg on SUNDAY and SUNDAY ropinirole 0.25 mg tablet 0.5 mg PO BEDTIME hydrocodone-acetaminophen 7.5-325 mg tablet 1 tab PO BID PRN (Reason: Pain) metoprolol tartrate 25 mg Tablet 12.5 mg PO BID@0900,2100 Qty: 90 0RF Rx Instructions: PT NOT STARTED OF 01/19/23 Discharge Orders: Discharge ED (Routine); Ordered 10/03/23 Ordered By: Real Condon Referrals: Missy Santana MD [Primary Care Provider] - Discharge Diet: Usual diet Discharge Activity: Increase activity as tolerated Patient Instructions: Dependent Edema, Opioid Safety, Pain Management Activity Restrictions/Additional Instructions: Follow-up with primary care regarding the management of your anticoagulant such as warfarin. Activity as tolerated. Return to ER for new concerns or worsening symptoms such as high fever, severe chest pain, or shortness of breath. Coding Level of Care Code ED High Pressure Cleaner for Tracey Farrar
--- NOTE | 2023-10-03 16:45 | ECG_ITS ---
[facility] Test Date: 2023-10-03 Pat Name: Nai Mancilla Department: Room: Gender: Female Cane Piler: : [id number] Requested By: Real Lin Order Number: [id number] Carlos MD: Richard Segura M.D. Measurements Intervals [place] Rate: 102 P: 80 [place]: 170 QRS: 9 QRSD: 102 T: 41 QT: 343 QTc: 449 Interpretive Statements SINUS TACHYCARDIA LOW QRS VOLTAGE IN PRECORDIAL LEADS [QRS DEFLECTION < 1.0 mV IN CHEST LEADS] POSSIBLE ANTERIOR MYOCARDIAL INFARCTION , PROBABLY OLD [30 ms Q WAVE IN V3/V4, OR R < 0.2 mV IN V4] ABNORMAL RHYTHM ECG Compared to ECG 01/28/2023 11:50:18 Myocardial infarct finding now present Sinus rhythm no longer present Electronically Signed On 10-04-2023 0:44:39 CLINICAL PSYCHOLOGIST PRIVATE PRACTICE by Richard Segura M.D. [email or web address]
--- NOTE | 2023-10-03 16:52 | USR_ITS ---
PROCEDURE INFORMATION: Exam: US Duplex Left Upper Extremity Veins, Limited Exam date and time: 10/03/2023 5:04 PM Age: 63 years old Clinical indication: Swelling (edema) of limb; Upper extremity, left; Additional info: Swelling, anticoagulated TECHNIQUE: Imaging protocol: Real-time duplex ultrasound of the left extremity with 2-D grande scale, color Doppler flow and spectral waveform analysis including responses to compression and other maneuvers (when performed) with image documentation. Limited exam focused on the left upper extremity veins. COMPARISON: CT angio headneck* [id number] 01/04/2023 2:22 PM FINDINGS: Left deep veins: Unremarkable. Axillary and brachial veins are patent throughout without thrombus. Normal Doppler waveforms. Normal compressibility and/or augmentation response. Visualized internal jugular and subclavian veins are patent. Superficial veins: Unremarkable. Visualized cephalic and basilic veins are patent without thrombus. Soft tissues: Unremarkable. US/[place] [id number] IMPRESSION: No evidence of deep vein thrombosis.
--- NOTE | 2023-10-03 16:53 | CTR_ITS ---
PROCEDURE INFORMATION: Exam: CT Head Without Contrast Exam date and time: 10/03/2023 6:05 PM Age: 63 years old Clinical indication: Other: Lt facial drooping; Additional info: Left facial drooping, HX of CVA TECHNIQUE: Imaging protocol: Computed tomography of the head without contrast. Radiation optimization: All CT scans at this facility use at least one of these dose optimization techniques: automated exposure control; mA and/or kV adjustment per patient size (includes targeted exams where dose is matched to clinical indication); or iterative reconstruction. REPORTING DATA: Count of CT and Cardiac NM exams in prior 12 months: This patient has received 3 known CTs and 0 known cardiac nuclear medicine studies in the 12 months prior to the current study. COMPARISON: CT head wo con* [id number] 01/19/2023 10:27 AM RADIATION DOSE METRICS: Total DLP (mGy-cm): 1079 FINDINGS: Brain: No hemorrhage. No edema. Broad region of encephalomalacia from old infarct noted in the right frontal and parietal lobes. No mass effect. Cerebral ventricles: No ventriculomegaly. Paranasal sinuses: Visualized sinuses are unremarkable. No fluid levels. Mastoid air cells: Visualized mastoid air cells are well aerated. Bones/joints: Unremarkable. No acute fracture. Soft tissues: Unremarkable. CT/CT head wo con* [id number] IMPRESSION: Stable exam, no acute intracranial abnormality.
[2023-10-03 17:31] LABS: Basophils % 0.4 %; Eosinophils # 0.1 10^3/uL (0.0-0.8); Eosinophils % 1.6 %; Hematocrit 40.3 % (36-47); Lymphocytes # 1.5 10^3/uL (0.8-4.8); Lymphocytes % 21.7 %; Mean Corpuscular HGB Conc 32.3 g/dL (30-55); Mean Corpuscular Hemoglobin 29.1 pg (27-33); Mean Corpuscular Volume 90.2 fl (85-98); Monocytes # 0.6 10^3/uL (0.2-0.9); Monocytes % 9.6 %; Neutrophils # 4.44 10^3/uL (1.8-7.7); Neutrophils % 66.4 %; Nucleated Red Blood Cells % 0 %; Platelet Count 221 10^3/cmm (157-399); Red Blood Count 4.47 10^6/uL (3.85-5.65); Red Cell Distribution Width 12.8 % (12.1-15.1); White Blood Count 6.69 10^3/uL (3.29-11.43)
[2023-10-03 17:58] LABS: Alanine Aminotransferase 22 U/L (0-33); Albumin Level 4.5 g/dL (3.5-5.2); Alkaline Phosphatase 133 U/L (35-105); Aspartate Amino Transferase 21 U/L (0-32); Blood Urea Nitrogen 20 mg/dL (8-23); Calcium 9.4 mg/dL (8.5-10.5); Carbon Dioxide 24 mmol/L (22-29); Chloride 103 mmol/L (98-107); Globulin 3.1 g/dL (1.3-4.6); Glomerular Filtration Rate 72.9 mL/min (90-130); Glucose 97 mg/dL (65-115); Osmolality Calculated 291 mOsm/kg (285-295); Sodium 139 mmol/L (136-145); Total Bilirubin 0.3 mg/dL (0.15-1.2); Total Protein 7.6 g/dL (6.6-8.7)
[2023-10-03 18:03] LABS: Anion Gap 15.9 (5-19); Potassium 3.9 mmol/L (3.5-5.1)
== END 2023-10-03 18:38 | disposition home or self-care (01) ==
PROVIDERS: Emergency Provider Nurse Practitioner Family; PCP Family Medicine
DX: R60.9 Edema, unspecified (principal); Z86.73 Personal history of transient ischemic attack (TIA), and cerebral infarction without residual deficits; Z79.82 Long term (current) use of aspirin; Z79.01 Long term (current) use of anticoagulants; M79.89 Other specified soft tissue disorders
CPT/HCPCS: 36415; 70450; 80053; 85025; 85610; 93005; 93971; 99285

== ENCOUNTER → 2024-01-24 14:38 | Outpatient (BNVA) | payer MEDICARE, SELFPAY | PROVIDERS: Visit Provider Specialist | DX: I69.354 Hemiplegia and hemiparesis following cerebral infarction affecting left non-dominant side (principal); D68.61 Antiphospholipid syndrome; Z79.01 Long term (current) use of anticoagulants | CPT/HCPCS: 64642; 99212; J0585 ==

== ENCOUNTER 2024-03-13 13:20 | Oncology outpatient (recurring) (ONCR) | payer MEDICARE, SELFPAY ==
[2024-03-13 13:46] LABS: Basophils % 0.4 %; Eosinophils # 0.1 10^3/uL (0.0-0.8); Eosinophils % 1.9 %; Hematocrit 44.1 % (36-47); Lymphocytes # 1.1 10^3/uL (0.8-4.8); Lymphocytes % 21.8 %; Mean Corpuscular HGB Conc 29.9 g/dL (30-55); Mean Corpuscular Hemoglobin 29.2 pg (27-33); Mean Corpuscular Volume 97.6 fl (85-98); Mean Platelet Volume 10.7 fL (7.4-10.4); Monocytes # 0.4 10^3/uL (0.2-0.9); Monocytes % 9.1 %; Neutrophils # 3.24 10^3/uL (1.8-7.7); Neutrophils % 66.6 %; Nucleated Red Blood Cells % 0 %; Platelet Count 208 10^3/cmm (157-399); Red Blood Count 4.52 10^6/uL (3.85-5.65); Red Cell Distribution Width 12.7 % (12.1-15.1); White Blood Count 4.86 10^3/uL (3.29-11.43)
[2024-03-13 14:06] LABS: Alanine Aminotransferase 18 U/L (0-33); Albumin Level 4.4 g/dL (3.5-5.2); Alkaline Phosphatase 114 U/L (35-105); Anion Gap 11.4 (5-19); Aspartate Amino Transferase 25 U/L (0-32); Blood Urea Nitrogen 14 mg/dL (8-23); Calcium 9.3 mg/dL (8.5-10.5); Carbon Dioxide 28 mmol/L (22-29); Chloride 105 mmol/L (98-107); Glomerular Filtration Rate 85.1 mL/min (90-130); Glucose 144 mg/dL (65-115); Osmolality Calculated 295 mOsm/kg (285-295); Potassium 3.4 mmol/L (3.5-5.1); Sodium 141 mmol/L (136-145); Total Bilirubin 0.3 mg/dL (0.15-1.2); Total Protein 7.4 g/dL (6.6-8.7)
== END 2024-03-25 23:59 | disposition home or self-care (01) ==
PROVIDERS: Nurse Practitioner Family; Visit Provider Internal Medicine Medical Oncology
DX: Z85.3 Personal history of malignant neoplasm of breast (principal); D68.61 Antiphospholipid syndrome; Z79.899 Other long term (current) drug therapy
CPT/HCPCS: 36415; 80053; 85025; 99214

== ENCOUNTER 2024-03-19 11:33 | Outpatient (CLI) | payer MEDICARE, SELFPAY ==
--- NOTE | 2024-03-19 11:54 | MM_ITS ---
WS: [id number] LEFT 3D TOMOSYNTHESIS DIGITAL MAMMOGRAPHY WITH CAD CLINICAL INFORMATION: MALIGNANT NEOPLASM HISTORY: Prior RIGHT mastectomy COMPARISON: 2021 TECHNIQUE: 3 views of the left breast were obtained. FINDINGS: Scattered fibroglandular densities of the left breast. Few incidental punctate calcifications. No suspicious focal mass, asymmetry, calcifications, or architectural distortion. No evidence of tosin gnancy. IMPRESSION: MM/[place] [id number] BI-RADS: 2-Benign FOLLOW UP: 1 Year Follow-up Recommend return to annual diagnostic mammography.
== END 2024-03-19 11:34 | disposition home or self-care (01) ==
LOC: RAD 11:33
PROVIDERS: Visit Provider Family Medicine
DX: R92.322 Mammographic fibroglandular density, left breast (principal)
CPT/HCPCS: 77061; G0279

== ENCOUNTER → 2024-04-17 14:44 | Outpatient (BNVA) | payer MEDICARE, SELFPAY | PROVIDERS: Visit Provider Specialist | DX: D68.61 Antiphospholipid syndrome (principal); I69.354 Hemiplegia and hemiparesis following cerebral infarction affecting left non-dominant side | CPT/HCPCS: 64642; 64643; 99213; J0585 ==

== ENCOUNTER → 2024-07-31 12:45 | Outpatient (BNVA) | payer MEDICARE, SELFPAY | PROVIDERS: Visit Provider Specialist | DX: D68.61 Antiphospholipid syndrome (principal); I69.354 Hemiplegia and hemiparesis following cerebral infarction affecting left non-dominant side; I65.21 Occlusion and stenosis of right carotid artery | CPT/HCPCS: 64642; 64643; 64644; J0585 ==

== ENCOUNTER 2024-08-25 08:01 | Oncology outpatient (recurring) (ONCR) | payer MEDICARE, SELFPAY ==
--- NOTE | 2024-08-25 09:00 | CT_ITS ---
WS: [id number] CT ANGIOGRAM CEREBRAL AND CAROTID ARTERIES HISTORY: I65.21 - Occlusion and stenosis of right carotid artery TECHNIQUE: CT angiogram is performed of the carotid and cerebral arteries. During arterial injection imaging is obtained from the skull vertex to the aortic arch in 1.25 mm imaging. Coronal and sagittal reformats are submitted. Additional multi planar reformats of the carotid and cerebral arteries are submitted, MIP imaging also reviewed. NASCET criteria utilized. [facility] CT [facility] [place] [place] [facility] e at least one of these dose optimization techniques: automated exposure control; mA and/or kV adjust ment per patient size (includes targeted exams where dose is matched to clinical indication); or iter ative reconstruction. CONTRAST: Omnipaque 350; 100 mL IV. DLP: 1302.24 mGy.cm COMPARISON: Noncontrast CT head 10/03/2023, CT angiogram 11/17/[address] head is first performed Large area of encephalomalacia involving the RIGHT MCA artery territory from a prior infarct. Volume loss and small vessel ischemic disease are otherwise unchanged since 10/03/2023. No acute hemorrhage. Carotid Angiogram: Right carotid: Common carotid artery: Arises normally from the innominate artery. No significant plaque or stenosis. Internal carotid artery: No plaque or stenosis. External carotid artery: Patent. Left carotid: Common carotid artery: Arises normally from the aorta. No significant plaque or stenosis. Internal carotid artery: No plaque or stenosis. External carotid artery: Patent. Right vertebral artery: Small caliber but patent. Left vertebral artery: Mildly dominant. LEFT vertebral artery arises from near the base of the LEFT s ubclavian artery close to the aortic arch. Artery is patent. Subclavian arteries: No stenosis or significant abnormality. Upper thorax: Normal. Thyroid gland: Normal. Osseous structures: Mild straightening of the cervical lordosis. CEREBRAL ANGIOGRAM: Intracranial vertebral arteries: Both vertebral arteries are patent with the LEFT being slightly [place]. Basilar artery: Patent. Intracranial Internal carotid arteries: Demonstrates no significant stenosis or plaque. Middle cerebral arteries: Middle cerebral arteries are both patent. There is a paucity of vessels in the M2 and M3 segments of the RIGHT MCA in the area of the prior infarct. No aneurysms. Anterior cerebral arteries and ACOM: Very small caliber and hypoplastic LEFT A1 segment. A2 segments are patent. No aneurysm. Posterior cerebral arteries and PCOM's: RIGHT P1 and P2 segments are smaller but patent. Dural venous sinuses are normally enhancing. Mastoid air cells: Normal. Paranasal sinuses: Normal. Calvarium: Normal. CT/CT angio headneck* [id number] IMPRESSION: 1. No significant cervical carotid artery stenosis. No significant plaque or a therosclerotic disease. 2. Mild paucity of vessels in the distal RIGHT middle cerebral artery territor y including M2 and M3. This is in the area of the prior remote large infarct. 3. No [place] of [place] aneurysm. 4. Hypoplastic LEFT A1 segment.
[2024-08-25] MEDS: iohexol 350 mg/mL 500 mL Btl (per mL) IV (09:14)
[2024-08-25 09:15] LABS: Blood Urea Nitrogen 12 mg/dL (8-23); Glomerular Filtration Rate 84.8 mL/min (90-130)
== END 2024-08-25 23:59 | disposition home or self-care (01) ==
LOC: RAD 08:03 → ONCMED 10:28
PROVIDERS: PCP Family Medicine; Visit Provider Specialist
DX: Z85.3 Personal history of malignant neoplasm of breast (principal); D68.61 Antiphospholipid syndrome; Z79.899 Other long term (current) drug therapy; I65.21 Occlusion and stenosis of right carotid artery; I65.29 Occlusion and stenosis of unspecified carotid artery
CPT/HCPCS: 70496; 70498; 82565; 84520

== ENCOUNTER → 2024-09-05 11:01 | Outpatient (BNVA) | payer MEDICARE, SELFPAY | PROVIDERS: PCP Family Medicine; Visit Provider Specialist | DX: D68.61 Antiphospholipid syndrome (principal); I69.354 Hemiplegia and hemiparesis following cerebral infarction affecting left non-dominant side; M70.72 Other bursitis of hip, left hip; M70.62 Trochanteric bursitis, left hip | CPT/HCPCS: 20550; 20610; J1010; J3490 ==

== ENCOUNTER 2025-09-01 20:14 | Outpatient (CLI) | payer MEDICARE, SELFPAY | END 2025-09-01 20:15 | disposition home or self-care (01) | LOC: SLEEP 20:16 | PROVIDERS: PCP Family Medicine; Referring Provider Nurse Practitioner Family; Visit Provider Internal Medicine Pulmonary Disease | DX: G47.33 Obstructive sleep apnea (adult) (pediatric) (principal) | CPT/HCPCS: 95811 ==